=== PATIENT | female | born 1950 | race Hispanic/Latino ===

== ENCOUNTER 2016-08-07 10:10 | Inpatient (IN) | payer OTHER, MEDICARE ==
--- NOTE | 2016-08-07 10:24 | ED PDOC ---
Arrival/HPI - General Time Seen by Provider: 08/07/16 10:11 Historian: Patient - History of Present Illness Narrative History of Present Illness (Text): 08/07/16 10:29 66 year old female with a past medical history that includes IN, hernia and abdominal surgery presents to the emergency department complaining of shortness of breath and chest pain since last night. EMS reports Duoneb was given in the field. Patient reports she took Prednisone 5mg prior to arrival. No fever or urinary symptoms. PMD: Dr. Aguila Surgeon: Dr. Reeder 08/07/16 15:36 Time/Duration: 24 hours Symptom Onset: Sudden Past Medical History - Provider Review Nursing Documentation Reviewed: Yes - Infectious Disease Hx of Infectious Diseases: None - Tetanus Immunization Tetanus Immunization: Unknown - Cardiac Hx Cardiac Disorders: (IN 06/09/13, DVT s/p filter) Hx Hypertension: Yes - Pulmonary Hx Chronic Obstructive Pulmonary Disease (COPD): Yes (O2 @ Home) - Neurological HX Cerebrovascular Accident: Yes - HEENT Hx HEENT Disorder: No Hx Cataracts: (Unknown) Hx Deafness: Yes ([place]) Hx Difficulty Chewing: No Hx Glaucoma: Yes - Renal Hx Renal Disorder: No Hx Dialysis: No - Endocrine/Metabolic Hx Diabetes Mellitus Type 2: Yes Hx Hypothyroidism: Yes - Hematological/Oncological Hx Blood Transfusions: Yes Hx Blood Transfusion Reaction: No - Integumentary Hx Dermatological Disorder: No Other/Comment: bilateral arms eccymotic areas - Musculoskeletal/Rheumatological Hx Falls: Yes - Gastrointestinal Hx Gastrointestinal Disorders: Yes (hiatal hernia, umbilical hernia) Hx Diverticulitis: Yes (and diverticulosis) Hx Gastroesophageal Reflux: Yes Hx Liver Failure: No Hx Pancreatitis: Yes HX Swallowing Problems: No - Genitourinary/Gynecological Hx Genitourinary Disorders: Yes Hx Incontinence: Yes - Psychiatric Hx Substance Use: No - Surgical History Hx Cholecystectomy: Yes Hx Coronary Stent: Yes (06/09/13) Other/Comment: Hernia Surgery-15 June 2016 - Anesthesia Hx Anesthesia Reactions: No Hx Malignant Hyperthermia: No - Suicidal Assessment Feels Threatened In Home Enviroment: No Family/Social History - Physician Review Nursing Documentation Reviewed: Yes Family/Social History: Unknown Family HX Smoking Status: Former Smoker Hx Alcohol Use: No Hx Substance Use: No Hx Substance Use Treatment: No Allergies/Home Meds Allergies/Adverse Reactions: Allergies ciprofloxacin [From Cipro] Allergy (Verified 06/16/16 08:21) RASH ciprofloxacin HCl [From Cipro] Allergy (Verified 06/16/16 08:21) RASH iodine Allergy (Verified 06/16/16 08:21) RASH linezolid [From Zyvox] Allergy (Verified 06/23/16 00:33) REDNESS Sulfa (Sulfonamide Antibiotics) Allergy (Verified 06/16/16 08:21) RASH tiotropium bromide [From Spiriva with HandiHaler] Allergy (Verified 06/16/16 08: 21) RASH seafood Allergy (Uncoded 05/18/16 15:10) RASH Home Medications: Home Meds Medication Instructions Recorded Confirmed Albuterol/Ipratropium [Duoneb 3 3 ml IH BID 06/16/16 08/07/16 MG/3 Ml-0.5 MG/3 Ml 3 Ml] Alprazolam [Alprazolam Xr] 0.5 mg PO BID 06/16/16 08/07/16 Aspirin [Adult Low Dose Aspirin EC] 81 mg PO DAILY 06/16/16 08/07/16 Budesonide/Formoterol Fumarate 1 aer IH BID 06/16/16 08/07/16 [Symbicort] Cetirizine HCl [Zyrtec Allergy] 10 mg PO DAILY 06/16/16 08/07/16 Cholecalciferol [Vitamin D] 50,000 unit PO QWK 06/16/16 08/07/16 Clopidogrel [Plavix] 75 mg PO DAILY 06/16/16 08/07/16 Diclofenac Sodium [Voltaren] 0 gm TP TID 06/16/16 08/07/16 Furosemide [Lasix] 40 mg PO DAILY 06/16/16 08/07/16 Levothyroxine [Synthroid] 137 mcg PO DAILY 06/16/16 08/07/16 Lisinopril [Zestril] 5 mg PO DAILY 06/16/16 08/07/16 Metoprolol Succinate [Toprol XL] 25 mg PO DAILY 06/16/16 08/07/16 Omeprazole 40 mg PO DAILY 06/16/16 08/07/16 Polyethylene Glycol 3350 [Miralax] 17 gm PO HS 06/16/16 08/07/16 Potassium Chloride [K-Dur 20] 20 meq PO DAILY 06/16/16 08/07/16 Prednisone [Skip] 5 mg PO BID 06/16/16 08/07/16 Simvastatin 20 mg PO DAILY 06/16/16 08/07/16 Review of Systems - Physician Review All systems were reviewed & negative as marked: Yes - Review of Systems Constitutional: absent: Fevers Respiratory: SOB Cardiovascular: Chest Pain Genitourinary Female: absent: Dysuria, Frequency, Hematuria Physical Exam Vital Signs Reviewed: Yes Vital Signs Temp Pulse Pulse Resp BP Pulse Ox 08/07/16 20:49 98.1 F 83 83 21 146/78 08/07/16 20:36 90 19 113/62 95 08/07/16 20:27 87 113/62 08/07/16 20:26 87 113/62 08/07/16 16:44 100 H 18 123/64 92 L 08/07/16 13:17 110 H 20 126/57 L 96 08/07/16 10:43 19 98 08/07/16 10:19 98.1 F 104 H 19 119/52 L 98 Temperature: Afebrile Blood Pressure: Normal Pulse: Tachycardic Respiratory Rate: Normal Appearance: Positive for: Well-Appearing, Non-Toxic, Uncomfortable Pain Distress: None Mental Status: Positive for: Alert and Oriented X 3 - Systems Exam Head: Present: Atraumatic, Normocephalic Pupils: Present: PERRL Extroacular Muscles: Present: EOMI Conjunctiva: Present: Normal Mouth: Present: Moist Mucous Membranes Neck: Present: Normal Range of Motion Respiratory/Chest: Present: Good Air Exchange, Wheezes (Diffuse). No: Respiratory Distress, Accessory Muscle Use Cardiovascular: Present: Regular Rate and Rhythm, Normal S1, S2. No: Murmurs Abdomen: Present: Tenderness (Mild nonfocal tendreness), Normal Bowel Sounds, Scars (Abdominal surgical scar clean, intact, healing ). No: Distention, Peritoneal Signs Back: Present: Normal Inspection Upper Extremity: Present: Normal Inspection. No: Cyanosis, Edema Lower Extremity: Present: Normal Inspection. No: Edema Neurological: Present: GCS=15, CN II-XII Intact, Speech Normal Skin: Present: Warm, Dry, Normal Color. No: Rashes Psychiatric: Present: Alert, Oriented x 3, Normal Insight, Normal Concentration Medical Decision Making ED Course and Treatment: Impression: 66 year old female with a past medical history that includes IN, hernia and abdominal surgery presents to the emergency department complaining of shortness of breath and chest pain since last night. Differential Diagnosis include but are not limited to: Plan: -- EKG -- Aspirin, Duoneb, Solumdrol -- Labs -- Reassess and disposition Prior Visits: Notes and results from previous visits were reviewed. Patient last seen in ED on 06/16/16 for MICHA drain infection s/p surgery and admitted for intraabdominal infection. Progress Notes: EKG shows sinus tachycardia at 104 BPM with old RBBB. Interpreted by me. Patient refuses CT scan, reports allergy. Dr. Aguila is bedside, accepts patient, requesting VQ scan. - Lab Interpretations Lab Results: 08/07/16 10:40 08/07/16 10:40 Lab Results 08/07/16 13:07: POC Glucose (mg/dL) 169 H 08/07/16 10:40: WBC 7.1 D, RBC 3.93, Hgb 11.8 L, Hct 37.4, MCV 95.2, MCH 30.0, MCHC 31.6, RDW 16.6 H, Plt Count 263, MPV 11.1 H, Gran % 79.6 H, Lymph % (Auto) 8.4 L, [place] % (Auto) 11.8 H, Eos % (Auto) 0.1 L, Baso % (Auto) 0.1, Gran # 5.68 , Lymph # 0.6 L, [place] # 0.8 H, Eos # 0.0, Baso # 0.01, PT 10.7, INR 0.99, APTT 25.7, Sodium 139, Potassium 3.4 L, Chloride 96 L, Carbon Dioxide 33, Anion Gap 13, BUN 10, Creatinine 0.5, Est GFR ( Amer) > 60, Est GFR (Non-Af Amer) > 60, Random Glucose 127 H, Calcium 9.0, Magnesium 1.8, Total Bilirubin 0.5, AST 37, ALT 19, Alkaline Phosphatase 47, Lactate Dehydrogenase 549, Total Creatine Kinase 32 L, Troponin I < 0.01 D, NT-Pro-B Natriuret Pep 944 H, Total Protein 7.4, Albumin 4.0, Globulin 3.4, Albumin/Globulin Ratio 1.2, Lipase 60 - RAD Interpretation Radiology Orders: 08/07/16 11:22 CXR [CHEST PORTABLE] [RAD] Stat 08/07/16 13:49 LUNG PERF & VENT SCAN [NM] Stat - EKG Interpretation Interpreted by ED Physician: Yes Type: 12 lead EKG - Medication Orders Current Medication Orders: Alprazolam (Xanax) 0.5 mg PO BID [facility] PRN Reason: Protocol Last Admin: 08/09/16 17:36 Dose: 0.5 MG Behavioural Document 08/09/16 17:36 [facility] (Rec: 08/09/16 17:36 [id number] Maintenance Maintenance Dose Yes Nonmedicinal Nonmedicinal Interventions Therapeutic Communication Activity Behavior Behavior for Medication: Anxiety Re-Assess: Reassess Psych Meds Document 08/09/16 18:36 [facility] (Rec: 08/09/16 19:39 [id number] Reassess Psych Med Effective Aspirin (Ecotrin) 81 mg PO DAILY [facility] Last Admin: 08/10/16 09:03 Dose: 81 MG Atorvastatin Calcium (Lipitor) 10 mg PO DIN [facility] Last Admin: 08/09/16 16:47 Dose: 10 MG Clopidogrel Bisulfate (Plavix) 75 mg PO DAILY [facility] Last Admin: 08/10/16 09:03 Dose: 75 MG Furosemide (Lasix) 40 mg PO DAILY [facility] Last Admin: 08/09/16 09:14 Dose: 40 MG MAR Blood Pressure Document 08/09/16 09:14 [facility] (Rec: 08/09/16 09:14 [id number] Blood Pressure Blood Pressure (100/60-150/90) 153/66 Levalbuterol HCl (Xopenex) 0.63 mg IH Q2 PRN PRN Reason: Shortness of Breath Levalbuterol HCl (Xopenex) 0.63 mg IH [id number] [facility] Levothyroxine Sodium (Synthroid) 112 mcg PO ACB [facility] Last Admin: 08/09/16 07:58 Dose: 112 MCG Lisinopril (Zestril) 5 mg PO DAILY [facility] Last Admin: 08/10/16 09:04 Dose: 5 MG MAR Pulse and Blood Pressure Document 08/10/16 09:04 JUR (Rec: 08/10/16 09:04 JUR [id number]) Pulse Pulse Rate (60-90) 92 Blood Pressure Blood Pressure (100/60-150/90) 146/74 Methylprednisolone (Solu-Medrol) 30 mg IVP Q12 [facility] Last Admin: 08/10/16 09:04 Dose: 30 MG IVP Administration Document 08/10/16 09:04 JUR (Rec: 08/10/16 09:05 JUR [id number]) Charges for Administration # of IVP Administrations 1 Metoprolol Succinate (Toprol Xl) 25 mg PO DAILY [facility] Last Admin: 08/10/16 09:03 Dose: 25 MG MAR Pulse and Blood Pressure Document 08/10/16 09:03 JUR (Rec: 08/10/16 09:03 JUR [id number]) Pulse Pulse Rate (60-90) 92 Blood Pressure Blood Pressure (100/60-150/90) 146/74 Non-Formulary Medication (Alprazolam [Alprazolam Xr]) 0.5 mg PO BID [facility] Last Admin: 08/07/16 21:37 Dose: Ondansetron HCl (Zofran Inj) 4 mg IVP Q6H PRN PRN Reason: Nausea/Vomiting Last Admin: 08/09/16 05:40 Dose: 4 MG IVP Administration Document 08/09/16 05:40 RAYMUNDO (Rec: 08/09/16 05:40 RAYMUNDO [id number]) Charges for Administration # of IVP Administrations 1 Pantoprazole Sodium (Protonix Ec Tab) 40 mg PO 0630 [facility] Last Admin: 08/10/16 05:47 Dose: Not Given Non-Admin Reason: NPO Polyethylene Glycol (Miralax) 17 gm PO HS [facility] Last Admin: 08/09/16 21:15 Dose: 17 GM Potassium Chloride (K-Dur 20 Meq Er Tab) 20 meq PO DAILY [facility] Last Admin: 08/09/16 09:05 Dose: 20 MEQ Promethazine HCl/Codeine (Phenergan/Codeine Oral Syrup) 5 ml PO Q4H PRN PRN Reason: Cough and congestion Last Admin: 08/09/16 21:17 Dose: 5 ML Tramadol HCl (Ultram) 25 mg PO Q6H PRN PRN Reason: Pain, moderate (4-7) Last Admin: 08/09/16 16:47 Dose: 25 MG MAR Pain Assessment Document 08/09/16 16:47 JFG (Rec: 08/09/16 16:48 JFG [id number]) Pain Reassessment Is this a pain reassessment? Yes Sleep Is patient sleeping during reassessment? No Presence of Pain Presence of Pain Yes Location Pain Location Body Site Abdomen Back Description Description Intermittent Intensity of Pain at present 7 Pain Behavior Guarding Irritability Restlessness Facial Grimacing Aggravating Factors ADL's Changing Position Exercise/Activity Sitting Alleviating Factors/Management Heat Techniques Alleviating Factors Medication Re-Assess: MAR Pain Assessment Document 08/09/16 17:47 JF (Rec: 08/09/16 18:13 [id number]) Pain Reassessment Is this a pain reassessment? Yes Sleep Is patient sleeping during reassessment? No Presence of Pain Presence of Pain No Discontinued Medications Albuterol/Ipratropium (Duoneb 3 Mg/0.5 Mg (3 Ml) Ud) 3 ml IH Q15M SALLY Stop: 08/07/16 11:01 Last Admin: 08/07/16 11:22 Dose: 3 ML Aspirin (Aspirin) 325 mg PO STAT STA Stop: 08/07/16 10:30 Last Admin: 08/07/16 10:50 Dose: 325 MG Diphenhydramine HCl (Benadryl) 25 mg PO STAT STA Stop: 08/08/16 21:16 Last Admin: 08/08/16 21:32 Dose: 25 MG Diphenhydramine HCl (Benadryl) Confirm Administered Dose 50 mg .ROUTE .STK-MED ONE Stop: 08/10/16 10:41 Last Admin: 08/10/16 11:15 Dose: 50 MG Enoxaparin Sodium (Lovenox) 70 mg SC STAT STA PRN Reason: Protocol Stop: 08/07/16 19:30 Last Admin: 08/07/16 22:25 Dose: 70 MG Subcutaneous Administrations Document 08/07/16 22:25 [id number] (Rec: 08/07/16 22:26 [id number]) Injection Site MAR Injection Site Right Abdomen Charges for Administration # of Subcutaneous Administrations 1 Enoxaparin Sodium (Lovenox) 30 mg SC DAILY SALLY PRN Reason: Protocol Stop: 08/09/16 23:59 Last Admin: 08/09/16 09:07 Dose: 30 MG Subcutaneous Administrations Document 08/09/16 09:07 JFG (Rec: 08/09/16 09:07 CALLI [id number]) Injection Site MAR Injection Site Left Abdomen Charges for Administration # of Subcutaneous Administrations 1 Fentanyl (Fentanyl) Confirm Administered Dose 100 mcg .ROUTE .STK-MED ONE Stop: 08/10/16 11:24 Hydrocortisone Sodium Succinate (Solu-Cortef) Confirm Administered Dose 100 mg .ROUTE .STK-MED ONE Stop: 08/10/16 10:41 Last Admin: 08/10/16 11:00 Dose: 100 MG Famotidine (Pepcid 20mg/50ml Premix) Confirm Administered Dose 50 mls @ ud IVPB .STK-MED ONE Stop: 08/10/16 10:42 Last Admin: 08/10/16 11:00 Dose: 20 MG eMAR Start Stop Document 08/10/16 11:00 HOLLIS (Rec: 08/10/16 11:16 OHLLIS [facility]) Intravenous Solution Start Date 08/10/16 Start Time 11:00 End Date 08/10/16 End time 11:05 Total Infusion Time 5 Heparin Sodium (Porcine) (Heparin 1000 Units/500 Ml Ns) Confirm Administered Dose 1,500 mls @ ud IV .STK-MED ONE Stop: 08/10/16 11:25 Iodixanol (Visipaque 320 Mg/Ml 100 Ml) Confirm Administered Dose 100 ml IV .STK- MED ONE Stop: 08/07/16 13:26 Iodixanol (Visipaque 320 Mg/Ml 200 Ml) Confirm Administered Dose 200 ml IV .STK- MED ONE Stop: 08/10/16 11:24 Ketorolac Tromethamine (Toradol) 30 mg IVP STAT STA Stop: 08/07/16 15:13 Last Admin: 08/07/16 15:23 Dose: 30 MG IVP Administration Document 08/07/16 15:23 MR (Rec: 08/07/16 15:24 [id number]) Charges for Administration # of IVP Administrations 1 Levalbuterol HCl (Xopenex) 1.25 mg IH [id number] PRN PRN Reason: Shortness of Breath Last Admin: 08/10/16 06:12 Dose: 1.25 MG Levothyroxine Sodium (Synthroid) 25 mcg PO ACB SALLY Lidocaine HCl (Lidocaine 2% 20ml Vial) Confirm Administered Dose 20 ml .ROUTE .STK-MED ONE Stop: 08/10/16 11:24 Lorazepam (Ativan) 0.5 mg IVP ONCE ONE PRN Reason: Protocol Stop: 08/07/16 11:39 Last Admin: 08/07/16 11:51 Dose: 0.5 MG Behavioural Document 08/07/16 11:51 MR (Rec: 08/07/16 11:51 MR [facility] [id number]) Maintenance Maintenance Dose No Nonmedicinal Nonmedicinal Interventions Give food/fluids Behavior Behavior for Medication: Anxiety IVP Administration Document 08/07/16 11:51 MR (Rec: 08/07/16 11:51 MR [facility] [id number]) Charges for Administration # of IVP Administrations 1 Methylprednisolone (Solu-Medrol) 125 mg IVP STAT STA Stop: 08/07/16 10:31 Last Admin: 08/07/16 10:50 Dose: 125 MG IVP Administration Document 08/07/16 10:50 MR (Rec: 08/07/16 10:50 MR [id number] Charges for Administration # of IVP Administrations 1 Methylprednisolone (Solu-Medrol) 40 mg IV Q12 SALLY Last Admin: 08/09/16 21:17 Dose: 40 MG eMAR Start Stop Document 08/09/16 21:17 AP (Rec: 08/09/16 21:17 AP [id number]) Intravenous Solution Start Date 08/09/16 Start Time 21:17 Midazolam HCl (Versed Inj) Confirm Administered Dose 2 mg .ROUTE .STK-MED ONE Stop: 08/10/16 11:24 Oxycodone/Acetaminophen (Percocet 5/325 Mg Tab) 1 tab PO Q4H PRN PRN Reason: Pain, moderate (4-7) Stop: 08/10/16 21:33 Last Admin: 08/08/16 06:28 Dose: 1 TAB [facility] Pain Assessment Document 08/08/16 06:28 [id number] (Rec: 08/08/16 06:28 [id number]) Pain Reassessment Is this a pain reassessment? Yes Sleep Is patient sleeping during reassessment? No Re-Assess: [facility] Pain Assessment Document 08/08/16 07:28 JF (Rec: 08/08/16 08:04 [facility] Pain Reassessment Is this a pain reassessment? Yes Sleep Is patient sleeping during reassessment? No Presence of Pain Presence of Pain No Potassium Chloride (K-Dur 20 Meq Er Tab) 20 meq PO STAT STA Stop: 08/07/16 19:33 Last Admin: 08/07/16 20:27 Dose: 20 MEQ Prednisone (Prednisone Tab) 5 mg PO BID SALLY Last Admin: 08/08/16 09:17 Dose: 5 MG - Scribe Statement The provider has reviewed the documentation as recorded by the Danny Neely Provider Scribe Attestation: All medical record entries made by the Danny were at my direction and personally dictated by me. I have reviewed the chart and agree that the record accurately reflects my personal performance of the history, physical exam, medical decision making, and the department course for this patient. I have also personally directed, reviewed, and agree with the discharge instructions and disposition. Disposition/Present on Arrival - Present on Arrival Any Indicators Present on Arrival: No History of DVT/PE: Yes History of Uncontrolled Diabetes: No Urinary Catheter: No History Surgical Site Infection Followin - Disposition Have Diagnosis and Disposition been Completed?: Yes Diagnosis: Chronic obstructive pulmonary disease Disposition: HOSPITALIZED Disposition Time: 02:00 Condition: FAIR
[2016-08-07] MEDS: Albuterol-Ipratrop 3 mg / 0.5 (3 ml) UD IH SCH ×3 (10:50→11:22)
[2016-08-07 10:57] LABS: ADD MANUAL DIFF? NO
[2016-08-07 11:00] LABS: BASO # 0.01 K/mm3 (0.0-2.0); BASO % 0.1 % (0.0-3.0); EOS % 0.1 % (1.5-5.0); GRAN # 5.68 (1.4-6.5); GRAN % 79.6 % (50.0-68.0); HEMATOCRIT 37.4 % (36.0-48.0); LYMPH # 0.6 (1.2-3.4); LYMPH % 8.4 % (22.0-35.0); MEAN CELL VOLUME 95.2 fL (80.0-105.0); MEAN CORPUSCULAR HGB CONC 31.6 g/dl (31.0-37.0); MEAN PLATELET VOLUME 11.1 fl (7.0-11.0); MONO # 0.8 (0.1-0.6); MONO % 11.8 % (1.0-6.0); PLATELET COUNT 263 10^3/uL (120.0-450.0); RED CELL DISTRIBUTION WIDTH 16.6 % (11.5-14.5); WHITE BLOOD COUNT 7.1 10^3/ul (4.5-11.0)
[2016-08-07 11:06] LABS: ALB/GLOB RATIO 1.2 (1.1-1.8); ALKALINE PHOSPHATASE 47 U/L (38-133); ALT/SGPT 19 U/L (7-56); AST/SGOT 37 U/L (15-39); BILIRUBIN,TOTAL 0.5 mg/dL (0.2-1.3); BLOOD UREA NITROGEN 10 mg/dL (7-21); CARBON DIOXIDE 33 mmol/L (21-33); CHLORIDE 96 mmol/L (98-107); GFR AFRICAN-AMERICAN > 60; GLUCOSE,RANDOM 127 mg/dL (70-110); LIPASE 60 U/L (23-300); MAGNESIUM 1.8 mg/dL (1.7-2.2); POTASSIUM 3.4 mmol/L (3.6-5.0); SODIUM 139 mmol/L (132-148); TOTAL PROTEIN 7.4 g/dL (5.8-8.3)
[2016-08-07 11:10] LABS: INR 0.99 (0.93-1.08); PARTIAL THROMBOPLASTIN TIME 25.7 Seconds (23.7-30.8)
[2016-08-07 11:18] LABS: TROPONIN I < 0.01 ng/mL
[2016-08-07] MEDS ORDERED: Iodixanol 320 MG/ML 100 ML BOTTLE IV ONE (13:25)
--- NOTE | 2016-08-07 14:29 | RAD ---
HISTORY: sob COMPARISON: 07/04/2016 FINDINGS: LUNGS: Lung markings are accentuated. There is no focal consolidation. PLEURA: No significant pleural effusion identified, no pneumothorax apparent. CARDIOVASCULAR: There is mild cardiomegaly. Atherosclerotic aortic arch calcifications are present. OSSEOUS STRUCTURES: No significant abnormalities. VISUALIZED UPPER ABDOMEN: Normal. OTHER FINDINGS: None. IMPRESSION: Mild cardiomegaly and pulmonary venous congestion. No lobar pneumonia.
[2016-08-07 14:39] LABS: PH,URINE 5.5 (4.7-8.0); URINE BILIRUBIN SMALL (NEGATIVE); URINE BLOOD NEGATIVE (NEGATIVE); URINE GLUCOSE (UA) NEGATIVE (NEGATIVE); URINE KETONE 15 mg/dL (NEGATIVE); URINE LEUKOCYTE ESTERASE NEGATIVE Leu/uL (NEGATIVE); URINE PROTEIN TRACE mg/dL (<30 mg/dL)
[2016-08-07 14:40] LABS: URINE APPEARANCE SL CLOUDY (CLEAR); URINE COLOR YELLOW (YELLOW)
[2016-08-07 14:42] LABS: URINE RBC NEGATIVE /hpf (0-2); URINE WBC 0 - 2 /hpf (0-6)
--- NOTE | 2016-08-07 17:01 | NM ---
COMPARISON: Comparison is made to the previous same-day chest x-ray TECHNIQUE: 30 mCi technetium 99-m technetium DTPA 3 mCI technetium 99-m MAA administered intravenously. FINDINGS: VENTILATION COMPONENT: Limited and demonstrates a heterogeneous distribution of the radiotracer. Foci of accumulation of the tracer seen in the central portion of the lungs. PERFUSION COMPONENT: There are nonsegmental matching perfusion defect seen in the right upper lobe and left lung. IMPRESSION: Suboptimal it study. The ventilation study is somewhat limited. Lowprobability ventilation perfusion scan for pulmonary embolism.
[2016-08-07] MEDS ORDERED: Non Formulary Medication (Alprazolam [Alprazolam Xr] 0.5 MG) PO SCH (18:00)
[2016-08-07] MEDS ORDERED: Enoxaparin 60 mg Syringe SC STA (19:29)
[2016-08-07] MEDS ORDERED: Potassium Chloride 20 mEq ER Tab PO STA (19:32)
[2016-08-07] MEDS: Metoprolol Succinate 25 mg XL Tab PO SCH (20:26)
[2016-08-07] MEDS: Potassium Chloride 20 mEq ER Tab PO SCH (20:27)
[2016-08-07] MEDS: Levalbuterol 1.25 MG/3 ML Inhal Soln UD IH PRN (20:51)
[2016-08-07] MEDS: Oxycodone/Acetaminophen 5/325 mg Tab PO PRN (21:42)
[2016-08-07] MEDS: MethylPREDNISolone 40 mg Vial IV SCH (21:42)
[2016-08-07] MEDS: POLYETHYLENE GLYCOL 3350 17 GM/Dose PACKET PO SCH (21:43)
[2016-08-08] MEDS: Oxycodone/Acetaminophen 5/325 mg Tab PO PRN ×2 (00:45→06:28)
[2016-08-08 02:34] VITALS: BMI 26.2
--- NOTE | 2016-08-08 04:14 | CON ---
DATE: 08/07/2016 SERVICE: Cardiology CONSULTING PHYSICIAN: Dr. Princess Mariano. REASON FOR CONSULTATION: Followup, history of coronary artery disease, history of non-ST segment mainor vation myocardial infarction, admitted with chest pain, shortness of breath, possible acute exacerbat ion of COPD, rule out [id number] elevation myocardial infarction. 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 Since patient is asymptomatic and lost a lot of blood, patient was treated medically and planned to do the cardiac catheterization on 07/29/2016 at 7:30. Later on, was postponed and was scheduled for 017 by the patient, but this was canceled because came from the [facility] recently. He came into the hospital with complaint of shortness of breath, 1 episode of chest pain and wheezing. PAST MEDICAL HISTORY: Significant for coronary artery disease, status post PTCA on 05/30/2013 of the distal circumflex. Recently patient had hernia and then hernia got infection and then hernia repair , postop complicated with [id number]-[id number] elevation myocardial infarction, dropped 4 units of blood an d he required 4 units of blood and is scheduled for stress as a cardiac catheterization in outpatient on 07/29/2016 at 7:30 and was later on the patient postponed and deferred to 08/10/2016 who later on called today to further postpone for 4 weeks, but came into the ER. Previous cardiac workup as follows: The patient had a stress test on 10/24/2015 with normal ejection fraction. The patient's last echocardiography on 05/31/2013 showed ejection fraction of 45% to 50%, mild hypokinesis. Recently, the patient had non-STEMI on 06/16/2016. Repeat echocardiography done on 07/01/2016 shows ejection fraction of 50% to 55%, trace aortic regurgitation, mild to moderate bren vular aortic stenosis, trace to mild mitral regurgitation, trace tricuspid regurg, RV systolic pressu re 22. REVIEW OF SYSTEMS: As per HPI. CURRENT MEDICATIONS: The patient is taking at home simvastatin, prednisone, potassium chloride, poly ethylene glycol, omeprazole, metoprolol, lisinopril, levothyroxine, Lasix, diclofenac, clopidogrel, a spirin, alprazolam and albuterol. SOCIAL HISTORY: Ex-smoker, quit many years ago. REVIEW OF SYSTEMS: As per HPI. ALLERGIES: CIPROFLOXACIN, IODINE , SULFAMETHOXAZOLE. PHYSICAL EXAMINATION: VITAL SIGNS: Temperature afebrile, heart rate 104, blood pressure 119/52. HEENT: PERRLA. Extraocular muscles intact. NECK: Supple. No carotid bruits. No thyromegaly. CHEST: Scattered rhonchi noted. HEART: S1, S2 regular. ABDOMEN: Healed scar noted of abdominal surgery, midline incision. EXTREMITIES: Clubbing, cyanosis negative. EKG shows normal sinus, right bundle branch block, left anterior hemiblock, T-wave inversion, conside r lateral ischemia. EKG compared to the previous EKG, no significant change noted. LABORATORY DATA: Blood workup as follows: WBC 7.9, hemoglobin 11.8, hematocrit 37.4, platelet count 263. Chemistry shows sodium 139, potassium 3.4, chloride 96, carbon dioxide 30, anion gap of 13, BU N 10, creatinine 0.5. Troponin 0.01. IMPRESSION: Possible acute exacerbation of chronic obstructive pulmonary disease, hypertension, diab etes, coronary artery disease, status post percutaneous transluminal coronary angioplasty of circumfl ex, distal and [id number] elevation myocardial infarction, recent echo shows preserved left ventr icular function, trace mitral regurgitation, trace tricuspid regurgitation. RECOMMENDATION: Start aspirin, Plavix, treat aggressively for COPD. The patient is going for VQ sca n to rule out PE. We will start Lovenox 1 mg/kg q. 12 and prepare for cardiac catheterization on Wed. We will follow with you. Thank you, Dr. Aguila for providing the opportunity in taking care of the patient. Princess Mariano MD cc: [id number] TT: 08/08/2016 04:13:45 Confirmation # [id number] Dictation # [id number]
[2016-08-08 06:57] LABS: ADD MANUAL DIFF? NO
[2016-08-08 07:04] LABS: BASO # 0.01 K/mm3 (0.0-2.0); BASO % 0.2 % (0.0-3.0); GRAN # 4.24 (1.4-6.5); HEMATOCRIT 35.7 % (36.0-48.0); LYMPH # 1.2 (1.2-3.4); LYMPH % 19.4 % (22.0-35.0); MEAN CELL VOLUME 94.4 fL (80.0-105.0); MEAN CORPUSCULAR HEMOGLOBIN 30.4 pg (25.0-35.0); MEAN CORPUSCULAR HGB CONC 32.2 g/dl (31.0-37.0); MEAN PLATELET VOLUME 10.8 fl (7.0-11.0); MONO # 0.8 (0.1-0.6); MONO % 12.4 % (1.0-6.0); PLATELET COUNT 253 10^3/uL (120.0-450.0); RED CELL DISTRIBUTION WIDTH 16.7 % (11.5-14.5); WHITE BLOOD COUNT 6.2 10^3/ul (4.5-11.0)
[2016-08-08 07:12] LABS: ALB/GLOB RATIO 1.2 (1.1-1.8); ALKALINE PHOSPHATASE 45 U/L (38-133); ALT/SGPT 20 U/L (7-56); AST/SGOT 23 U/L (15-39); BILIRUBIN,TOTAL 0.4 mg/dL (0.2-1.3); BLOOD UREA NITROGEN 14 mg/dL (7-21); CALCIUM 8.9 mg/dL (8.4-10.5); CARBON DIOXIDE 34 mmol/L (21-33); CHLORIDE 98 mmol/L (98-107); CHOLESTEROL 176 mg/dL (130-200); GFR AFRICAN-AMERICAN > 60; GLUCOSE,RANDOM 138 mg/dL (70-110); MAGNESIUM 2.1 mg/dL (1.7-2.2); PHOSPHOROUS 4.4 mg/dL (2.5-4.5); POTASSIUM 4.3 mmol/L (3.6-5.0); SODIUM 140 mmol/L (132-148); TOTAL PROTEIN 6.8 g/dL (5.8-8.3)
[2016-08-08 07:23] LABS: TROPONIN I 0.02 ng/mL
[2016-08-08] MEDS ORDERED: Levothyroxine 25 MCG TAB PO SCH (07:30)
[2016-08-08] MEDS: Levothyroxine 112 MCG TAB PO SCH (08:13)
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
[2016-08-08] MEDS: Potassium Chloride 20 mEq ER Tab PO SCH (09:14)
[2016-08-08] MEDS: Enoxaparin 30 mg Syringe SC SCH (09:17)
[2016-08-08] MEDS: MethylPREDNISolone 40 mg Vial IV SCH ×2 (09:17→21:26)
[2016-08-08] MEDS: Metoprolol Succinate 25 mg XL Tab PO SCH (09:19)
--- NOTE | 2016-08-08 09:31 | CARD ---
APPROVED REPORT EKG Measurement Heart [id number] <Conclusion> Sinus tachycardia with premature atrial complexes Right bundle branch block Left anterior fascicular block Bifascicular block STTW changes The T wave inversions V 2 -5 are shallower c/w ECG 06/30/16
[2016-08-08] MEDS: Levalbuterol 1.25 MG/3 ML Inhal Soln UD IH PRN (11:33)
--- NOTE | 2016-08-08 11:38 | CP.PCM.PCO ---
Physician Communication Note - Physician Communication Note Physician Communication Note: No wound infection/+ Loose BM: Stool c/s-cdif
--- NOTE | 2016-08-08 14:00 | CON ---
DATE: 08/08/2016 LOCATION: CCU, bed 1. HISTORY OF PRESENT ILLNESS: The patient is a 66-year-old woman who has had a very long cardiopulmonary surgical history. She has been very compliant with her outpatient medications, but was tremendously overweight. I believe that she was diagnosed as having obstructive sleep apnea for which she never wanted to use her CPAP. She also has a history of pulmonary hypertension. The patient was admitted to the past for evaluation of abdominal hernia repair which took place with several postoperative complications and she has been in and out of rehab for quite some time. The patient has been a long-term patient of [facility], but has not been in the office in over 2 years. This makes it difficult for me to remember all of the diagnoses and medications that she took. My office records are not available to me on the weekend and I will have to review these Wednesday and discuss with Dr. Goode who will be following the patient starting Wednesday. The patient was admitted with severe shortness of breath and possible sepsis. She is markedly better now, having been given vigorous inhaled and intravenous bronchodilators and corticosteroids. Of late, she has lost a tremendous amount of weight and she states that this has helped all of her symptoms dramatically. All her abnormalities must be reevaluated in view of this tremendous weight loss. She looks very well compared to the past. This is in spite of the fact that she was admitted to the hospital with exacerbation of COPD. In of itself, she looks markedly better than she had looked on a daily basis for many years due to her significant morbid obesity. PAST MEDICAL HISTORY: As described above. She has had cardiac catheterizations , hypertension, pulmonary hypertension, myocardial infarction in the past with history of DVT with filter placement. She has had severe COPD for years, on home oxygen. She has had a CVA in the past as well which had resolved dramatically, leaving her with very minimal residual. The patient also has diabetes mellitus, mild anemia and multiple falls. She has had GERD, diverticular disease and pancreatitis, multiple urinary tract infections and severe anxiety, although she was never hospitalized for this. PAST SURGICAL HISTORY: Cardiac stents multiple occasions, hernia repairs over a long period of time with redo's, status post cholecystectomy, polysomnography. FAMILY HISTORY: There is strong family history of COPD. SOCIAL HISTORY: The patient was a smoker. No occupational or travel history. No additional problems of note. She had been a DNR, but has rescinded this order in the past,. ALLERGIES: FLOXIN ANTIBIOTICS, IODINE, SULFA AND TIOTROPIUM. SHE ALSO HAS SEAFOOD ALLERGY. REVIEW OF SYSTEMS: Has been discussed with the patient at length. There is nothing new than what we have discussed above. She continues to have respiratory problems, but as I stated above, she has not been seen for over 2 years. Dyspnea on exertion, no chest pains, hemoptysis or pleurisy. No abdominal pain, vomiting, memory loss. No skin rashes. All other systems negative. HOME MEDICATIONS: Include: 1. Albuterol: 2. Ipratropium. 3. Alprazolam. 4. Budesonide. 5. Lasix. 6. Prednisone. 7. Simvastatin. I am of the belief that the patient had a pulmonary hypertension medication which has dropped out of the system. As stated above, I cannot check my office notes until Wednesday morning. PHYSICAL EXAMINATION: GENERAL: The patient is comfortable, in no acute respiratory distress. She is happy to see me and it has been a remarkable reunion of sorts. VITAL SIGNS: She is afebrile with a rapid heart rate 90 and a respiratory rate of 18, her blood pressure is 128/70. Pulse ox 98% at this time HEAD: Normocephalic, atraumatic. EYES: Pupils PERRLA. EOMs full. Conjunctivae reactive. Mouth: Moist mucous membranes. NECK: Supple, no JVD, no lymphadenopathy, no bruit, no mass or thyromegaly. CARDIOVASCULAR: Regular rhythm, S1, S2 without murmur, gallop or rub. PULMONARY: Good air movement. Scattered wheezes throughout both lung sosa, but better than previously seen. No respiratory distress. No additional abnormalities noted. GASTROINTESTINAL: Abdomen tender. Bowel sounds active. Multiple scars. Markedly decreased flesh. No distension. EXTREMITIES: Reveal no clubbing, cyanosis or edema. NEUROLOGIC: Awake, alert. Motor, sensory and coordination normal. Deep tendon reflexes normal. Babinski downgoing. SKIN: Warm and dry, no rashes or excoriations. New scars are noted. PSYCHIATRIC: She is still nervous, but is able to carry out a better to normal discussion about her pulmonary status and general medical status. LYMPHATICS: Lymphadenopathy is not present in the supraclavicular notch nor in the cervical, inguinal or axillary areas. LABORATORY DATA: Chest x-ray has been reviewed. This is essentially normal. Atelectatic changes and scars are still present, but markedly improved from previous films. EKG sinus rhythm, nonspecific ST-T wave changes. Laboratory studies show a white count of 6000, hemoglobin of 11, hematocrit 36, platelet count 253,000. Monos are 12.5%, eos are normal. Coags: INR OF 0.99. Chemistries: carbon dioxide of 33. Electrolytes normal otherwise, BUN of 14, creatinine 0.5, calcium 138. BNP on admission 944. IMPRESSION: 1. Chronic obstructive pulmonary disease. 2. Morbid obesity. 3. Obstructive sleep apnea. 4. Pulmonary artery hypertension. 5. Asthma with bronchospasm, in remission. 6. Emphysema 7. Abdominal hernia repair with questionable sepsis. 8. Chronic urinary tract infections. PLAN: This blake patient has been lost to our followup, but she remains extremely stable. I am not aware of all the medications that we had given her in the past and which she needs at this point, I believe that she has been on a beta agonist in the past, though it states in her chart currently that she is ALLERGIC TO SPIRIVA. I will review this information and get back to Dr. Goode who will see this patient on Wednesday. Continue vigorous bronchodilator therapy and inhaled corticosteroids. IV steroids are being given. They should be tapered slowly. We will need further evaluation later of the pulmonary artery hypertension as well as the obstructive sleep apnea. The patient will require echocardiogram and polysomnography. No additional problems at this time. Suggest continuation of losing weight or at least not gaining back any of the weight previously lost. Continue vigorous bronchodilator as an outpatient. We will continue to see her in the intensive care unit and once she is sent to the floor, she should be discharged at the earliest possible time to prevent iatrogenic infection. We will be happy to follow her once again as an outpatient if she is discharged to home and can get to my office. It has been a pleasure seeing the patient again after such a long hiatus. Casper Julio MD cc: [phone] TT: 08/08/2016 14:00:00 Confirmation # [id number] Dictation # [id number] [id number]
--- NOTE | 2016-08-08 15:17 | PN ---
DATE: 08/08/2016 SUBJECTIVE: The patient is 66 years old, seen and examined, looks better than before, less cough and congestion. PHYSICAL EXAMINATION: VITAL SIGNS: She is afebrile, pulse 80, respirations 17, blood pressure 134/65. LUNGS: Bilateral good airflow, no rhonchi or crackle. HEART: S1, S2 audible. No murmur. ABDOMEN: Soft. Her wound seems to be healing. At the upper edge there is a 1/4 inch of superficial skin gaping but no discharge, no erythema noted. EXTREMITIES: Bilateral legs, no edema, no ulcers. LABORATORY EXAM: WBC 6.2, hemoglobin 11.5, hematocrit 35.7, platelet 253. Chemistry: Sodium 140, p otassium 4.3, chloride 98, CO2 of 34, BUN 14, creatinine 0.5, blood sugar 138. ASSESSMENT AND PLAN: 1. Chronic obstructive pulmonary disease exacerbation. 2. Bronchospasm. 3. Hypertension. 4. Hyperlipidemia. 5. Coronary artery disease, status post non-ST elevation myocardial infarction on previous admission . PLAN: The patient is currently on aspirin 81 daily. She is on Lasix and statins. She is on DVT pro phylaxis. She is getting SCDs. She is on Plavix and she is on IV steroids. She is scheduled for po ssible cardiac catheterization on Wednesday. Lori Aguila MD cc: [phone] TT: 08/08/2016 15:16:50 Confirmation # [id number] Dictation # [id number] dn
[2016-08-09] MEDS: Levalbuterol 1.25 MG/3 ML Inhal Soln UD IH PRN ×2 (05:25→12:36)
[2016-08-09] MEDS: Pantoprazole 40 mg EC Tab PO SCH (05:38)
[2016-08-09] MEDS: Levothyroxine 112 MCG TAB PO SCH (07:58)
[2016-08-09] MEDS: Potassium Chloride 20 mEq ER Tab PO SCH (09:05)
[2016-08-09] MEDS: MethylPREDNISolone 40 mg Vial IV SCH ×2 (09:06→21:17)
[2016-08-09] MEDS: Metoprolol Succinate 25 mg XL Tab PO SCH (09:06)
[2016-08-09] MEDS: Enoxaparin 30 mg Syringe SC SCH (09:07)
--- NOTE | 2016-08-09 12:51 | CP.PCM.PN ---
Subjective - Date & Time of Evaluation Date of Evaluation: 08/09/16 Time of Evaluation: 12:48 - Subjective Subjective: Surgery: Dr. Reeder Pt seen and examined. Pt has some SOB and congestion. No pain at incision site. No further episodes of diarrhea Objective - Vital Signs/Intake and Output Vital Signs (last 24 hours): Temp Pulse Resp BP Pulse Ox 98 F 102 H 26 H 153/66 H 96 08/09/16 05:54 08/09/16 10:00 08/09/16 04:00 08/09/16 09:14 08/09/16 04:44 Intake and Output: 08/09/16 08/09/16 06:59 18:59 Intake Total 140 Output Total 550 Balance -410 - Medications Medications: Current Medications Alprazolam (Xanax) 0.5 mg PO BID [facility] PRN Reason: Protocol Last Admin: 08/09/16 09:07 Dose: Not Given Aspirin (Ecotrin) 81 mg PO DAILY [facility] Last Admin: 08/09/16 09:05 Dose: 81 mg Atorvastatin Calcium (Lipitor) 10 mg PO DIN [facility] Last Admin: 08/08/16 17:04 Dose: 10 mg Clopidogrel Bisulfate (Plavix) 75 mg PO DAILY [facility] Last Admin: 08/09/16 09:06 Dose: 75 mg Enoxaparin Sodium (Lovenox) 30 mg SC DAILY [facility] PRN Reason: Protocol Stop: 08/09/16 23:59 Last Admin: 08/09/16 09:07 Dose: 30 mg Furosemide (Lasix) 40 mg PO DAILY [facility] Last Admin: 08/09/16 09:14 Dose: 40 mg Levalbuterol HCl (Xopenex) 1.25 mg IH [id number] PRN PRN Reason: Shortness of Breath Last Admin: 08/09/16 12:36 Dose: 1.25 mg Levothyroxine Sodium (Synthroid) 112 mcg PO ACB [facility] Last Admin: 08/09/16 07:58 Dose: 112 mcg Lisinopril (Zestril) 5 mg PO DAILY [facility] Last Admin: 08/09/16 09:14 Dose: 5 mg Methylprednisolone (Solu-Medrol) 40 mg IV Q12 [facility] Last Admin: 08/09/16 09:06 Dose: 40 mg Metoprolol Succinate (Toprol Xl) 25 mg PO DAILY [facility] Last Admin: 08/09/16 09:06 Dose: 25 mg Non-Formulary Medication (Alprazolam [Alprazolam Xr]) 0.5 mg PO BID [facility] Last Admin: 08/07/16 21:37 Dose: Not Given Ondansetron HCl (Zofran Inj) 4 mg IVP Q6H PRN PRN Reason: Nausea/Vomiting Last Admin: 08/09/16 05:40 Dose: 4 mg Pantoprazole Sodium (Protonix Ec Tab) 40 mg PO 0630 [facility] Last Admin: 08/09/16 05:38 Dose: 40 mg Polyethylene Glycol (Miralax) 17 gm PO HS [facility] Last Admin: 08/07/16 21:43 Dose: 17 gm Potassium Chloride (K-Dur 20 Meq Er Tab) 20 meq PO DAILY [facility] Last Admin: 08/09/16 09:05 Dose: 20 meq Tramadol HCl (Ultram) 25 mg PO Q6H PRN PRN Reason: Pain, moderate (4-7) Last Admin: 08/09/16 03:35 Dose: 25 mg - Labs Labs: 08/08/16 06:56 08/08/16 06:56 PT 10.7 Seconds (9.9-11.8) 08/07/16 10:40 INR 0.99 (0.93-1.08) 08/07/16 10:40 APTT 25.7 Seconds (23.7-30.8) 08/07/16 10:40 - Constitutional Appears: No Acute Distress, Chronically Ill - Head Exam Head Exam: ATRAUMATIC, NORMOCEPHALIC - Eye Exam Eye Exam: EOMI - ENT Exam ENT Exam: Mucous Membranes Dry - Neck Exam Neck Exam: Full ROM - Respiratory Exam Respiratory Exam: Prolonged Expiratory Phase - GI/Abdominal Exam GI & Abdominal Exam: Soft, Tenderness (mild chauncey-incisional ). absent: Distended, Firm, Guarding, Rigid Additional comments: incision is clean, no signs of infection, inferior portion of incision is located in between skin folds and is moist, again no signs of infection - Extremities Exam Extremities Exam: absent: Calf Tenderness - Neurological Exam Neurological Exam: Alert, Awake, Oriented x3 Assessment and Plan - Assessment and Plan (Free Text) Assessment: 66F with multiple co-morbidities admitted for SOB; surgery consulted to evaluate surgical incision -no signs of infection, keep inferior portion of incision dry by placing gauze in skin fold -f/u on C.diff -d/w attending Gerson POPEY2
[2016-08-09] MEDS: Promethazine/Cod 6.25mg-10mg/5ml Syr UD PO PRN ×2 (13:58→21:17)
[2016-08-09] MEDS: POLYETHYLENE GLYCOL 3350 17 GM/Dose PACKET PO SCH (21:15)
--- NOTE | 2016-08-10 01:14 | PN ---
DATE: 08/09/2016 The patient is a 66-year-old female admitted to the hospital with shortness of breath and chest pain for 1 day. She has history of myocardial infarction and abdominal surgery for hernia repair. She guzman s history of DVT in the past. VQ scan showed low probability of pulmonary embolism. She is planned for cardiac catheterization tomorrow. She is still short of breath, but has improved since admission . She was nonstanding during last admission Diabetes mellitus blood sugars are controlled on current medications. PAST MEDICAL HISTORY: Myocardial infarction, status post inferior vena cava filter placement, hypert ension, cerebrovascular accident, chronic obstructive pulmonary disease exacerbation, diabetes mellit us type 2, history of diverticulosis, hiatal hernia, gastroesophageal reflux, incontinence. PAST SURGICAL HISTORY: Cholecystectomy, coronary stent placement, hernia repair. ALLERGIES: MULTIPLE DRUG ALLERGIES CIPROFLOXACIN, IODINE, ZYVOX, SULFA, SPIRIVA, SEAFOOD. PERSONAL HISTORY: Former smoker. No history of substance abuse. SOCIAL HISTORY: Lives at home with daughter. FAMILY HISTORY: No positive family history in mother and father. MEDICATIONS: Reviewed. REVIEW OF SYSTEMS: As per HPI. Rest of 12-point review of systems reviewed and negative. PHYSICAL EXAMINATION: VITAL SIGNS: Tachycardia, heart rate 100 per minute, tachypnea, respiratory rate 20 per minute, bloo d pressure 110/70, pulse ox 98% room air, and temperature 98.5. HEAD: Atraumatic, normocephalic. HEENT: Normal. NECK: No lymphadenopathy. CHEST: Bilateral rhonchi present, bilateral crepitations present. CARDIOVASCULAR: S1, S2 normal. No murmur, no gallop. ABDOMEN: Soft, nontender, no hepatosplenomegaly. EXTREMITIES: No edema. SKIN: Warm, dry. No rash. NEUROLOGIC: Alert, oriented x 3, no focal sensorimotor deficit. SPINE: Normal. LYMPHADENOPATHY: None. LABORATORY DATA: White count 6.2, hemoglobin 11.5, hematocrit 35.7, platelet count 253. Sodium 140, potassium 4.3, BUN 14, creatinine 0.5, glucose 138, calcium 8.9, AST 23, ALT 20. Coags normal. MEDICATIONS: Xanax 0.5 mg b.i.d., aspirin 81 mg daily, Lipitor 10 mg daily, Plavix 75 mg daily, Love nox 30 mg subQ daily, Lasix 40 mg daily, Xopenex inhalation, levothyroxine 112 mcg daily, lisinopril 5 mg daily, Solu-Medrol 40 mg IV every 12, Xanax 0.5 mg b.i.d., MiraLax p.r.n., Ultram p.r.n. ASSESSMENT: 1. Non STEMI. 2. Coronary artery disease. 2. Chronic obstructive pulmonary disease exacerbation. 3. Diabetes mellitus type 2. 4. Anemia. 5. History of deep venous thrombosis, status post inferior vena cava filter. PLAN: She is scheduled for cardiac catheterization tomorrow with Dr. Mariano. She has severe cough dry cough. We will give Phenergan with codeine p.r.n. We will continue above medication. Continue asp irin, Plavix and Lovenox subQ 30 mg. She has IVC filter, no evidence of DVT now. Chronic anemia. H emoglobin and hematocrit stable. Transfer to tele monitoring. once bed is available. Discussed wit h the patient, discussed with the staff nurse, discussed with the daughter at bedside. Itzel Saucedo MD cc: [id number] TT: 08/10/2016 01:13:51 Confirmation # [id number] Dictation # [id number] michelle
[2016-08-10] MEDS: Pantoprazole 40 mg EC Tab PO SCH (05:47)
[2016-08-10] MEDS: Levalbuterol 1.25 MG/3 ML Inhal Soln UD IH PRN (06:12)
[2016-08-10] MEDS ORDERED: Levalbuterol 1.25 MG/3 ML Inhal Soln UD IH PRN (07:02)
[2016-08-10] MEDS ORDERED: Levalbuterol 0.63 MG/3 ML Inhal Soln UD IH PRN ×2 (07:02→07:03)
[2016-08-10] MEDS: Levothyroxine 112 MCG TAB PO SCH (07:30)
--- NOTE | 2016-08-10 07:38 | CP.PCM.PN ---
Subjective - Date & Time of Evaluation Date of Evaluation: 08/10/16 Time of Evaluation: 07:35 - Subjective Subjective: PROGRESS NOTE FOR SURGERY DR. REEDER 66 year old female is seen and examined at bedside. No acute events overnight. Denies having any fevers or chills. Still c/o of small amount of pain on LLQ of abdomen. Objective - Vital Signs/Intake and Output Vital Signs (last 24 hours): Temp Pulse Resp BP Pulse Ox 97.5 F L 83 19 146/74 98 08/10/16 05:02 08/10/16 05:02 08/10/16 05:02 08/10/16 05:02 08/10/16 05:02 Intake and Output: 08/10/16 08/10/16 06:59 18:59 Intake Total 50 Balance 50 - Medications Medications: Current Medications Alprazolam (Xanax) 0.5 mg PO BID [facility] PRN Reason: Protocol Last Admin: 08/09/16 17:36 Dose: 0.5 mg Aspirin (Ecotrin) 81 mg PO DAILY [facility] Last Admin: 08/09/16 09:05 Dose: 81 mg Atorvastatin Calcium (Lipitor) 10 mg PO DIN [facility] Last Admin: 08/09/16 16:47 Dose: 10 mg Clopidogrel Bisulfate (Plavix) 75 mg PO DAILY [facility] Last Admin: 08/09/16 09:06 Dose: 75 mg Furosemide (Lasix) 40 mg PO DAILY [facility] Last Admin: 08/09/16 09:14 Dose: 40 mg Levalbuterol HCl (Xopenex) 0.63 mg IH Q2 PRN PRN Reason: Shortness of Breath Levalbuterol HCl (Xopenex) 0.63 mg IH [id number] [facility] Levothyroxine Sodium (Synthroid) 112 mcg PO ACB [facility] Last Admin: 08/09/16 07:58 Dose: 112 mcg Lisinopril (Zestril) 5 mg PO DAILY [facility] Last Admin: 08/09/16 09:14 Dose: 5 mg Methylprednisolone (Solu-Medrol) 30 mg IVP Q12 [facility] Metoprolol Succinate (Toprol Xl) 25 mg PO DAILY [facility] Last Admin: 08/09/16 09:06 Dose: 25 mg Non-Formulary Medication (Alprazolam [Alprazolam Xr]) 0.5 mg PO BID [facility] Last Admin: 08/07/16 21:37 Dose: Not Given Ondansetron HCl (Zofran Inj) 4 mg IVP Q6H PRN PRN Reason: Nausea/Vomiting Last Admin: 08/09/16 05:40 Dose: 4 mg Pantoprazole Sodium (Protonix Ec Tab) 40 mg PO 0630 [facility] Last Admin: 08/10/16 05:47 Dose: Not Given Polyethylene Glycol (Miralax) 17 gm PO HS [facility] Last Admin: 08/09/16 21:15 Dose: 17 gm Potassium Chloride (K-Dur 20 Meq Er Tab) 20 meq PO DAILY [facility] Last Admin: 08/09/16 09:05 Dose: 20 meq Promethazine HCl/Codeine (Phenergan/Codeine Oral Syrup) 5 ml PO Q4H PRN PRN Reason: Cough and congestion Last Admin: 08/09/16 21:17 Dose: 5 ml Tramadol HCl (Ultram) 25 mg PO Q6H PRN PRN Reason: Pain, moderate (4-7) Last Admin: 08/09/16 16:47 Dose: 25 mg - Labs Labs: 08/08/16 06:56 08/08/16 06:56 PT 10.7 Seconds (9.9-11.8) 08/07/16 10:40 INR 0.99 (0.93-1.08) 08/07/16 10:40 APTT 25.7 Seconds (23.7-30.8) 08/07/16 10:40 - Constitutional Appears: Non-toxic, No Acute Distress - ENT Exam ENT Exam: Mucous Membranes Moist - Respiratory Exam Respiratory Exam: absent: Accessory Muscle Use, Respiratory Distress - GI/Abdominal Exam GI & Abdominal Exam: Soft, Tenderness (periumbilical ). absent: Distended, Firm , Guarding, Rigid Additional comments: midline incision in place and not draining. Patient has excess fat folds with moist skin under the folds - Neurological Exam Neurological Exam: Alert, Awake, Oriented x3 - Psychiatric Exam Psychiatric exam: Normal Affect, Normal Mood - Skin Skin Exam: Intact, Normal Color, Warm Additional comments: moist skin under abd skin folds Assessment and Plan - Assessment and Plan (Free Text) Assessment: 66F with multiple co-morbidities admitted for SOB; surgery consulted to evaluate midline abd surgical incision. Wound culture grew yeast, negative for MRSA. -no signs of infection, keep inferior portion of incision dry by placing gauze in skin fold -No surgical intervention at this time. Will sign off. Please re-consult if needed. Will d/w Dr. Reeder for further recs Ansley Joe PGY1
--- NOTE | 2016-08-10 08:07 | HP ---
The patient is a 66-year-old who called me this morning that she is having shortness of breath, chest tightness, and difficulty breathing. The patient came home from rehab in [place] 2 days ago. The patient states she has been ambulating, but denies any fever or chills. Does complain of chest tight ness. Denies any nausea or vomiting. The patient was recently admitted in hospital for her recurren t abdominal wall infection. She had infected mesh removed, and she remained on long-term antibiotics , and she was transferred to rehab to complete her course of antibiotics. PAST MEDICAL HISTORY: Also significant for: 1. COPD. 2. Coronary artery disease, status post angioplasty. 3. Status post ventral hernia repair, and followed by infection of the mesh, and that was removed al so. 4. Chronic degenerative disk disease. 5. Hiatal hernia. 6. Advanced COPD. ALLERGIES: SHE IS ALLERGIC TO: 1. CIPRO. 2. SPIRIVA. 3. SULFA DRUGS AND IODINE. MEDICATIONS AT HOME: She is on: 1. Simvastatin 20 mg daily, prednisone 5 mg twice a day, K-Dur 20 mEq daily, Omeprazole 40 mg daily. 2. Metoprolol 25 daily. 3. Lisinopril 5 mg daily. 4. Lasix 40 mg daily. 5. Plavix 75 daily. 6. Vitamin D 50,000 q. weekly, and 0.5 twice a day. REVIEW OF SYSTEMS: Significant for shortness of breath, cough, and chest tightness. On examination she is lying in bed. Complained of chest pressure and shortness of breath. VITAL SIGNS: She is afebrile, pulse 100, respirations 18, blood pressure 123/64. LUNGS: Bilateral fair airflow. Few expiratory rhonchi, diffuse, scattered posteriorly. HEART: S1, S2 audible. ABDOMEN: Soft, obese, nontender, no rebound, no guarding. She has some whitish discharge from her p revious wound of abdominal wall. BILATERAL LEGS: No edema. LABORATORY EXAMINATION: WBC 7.1, hemoglobin 11.8, hematocrit 37.4, platelet 263. PT 10.7, INR 0.99. Chemistry: Sodium 139, potassium 3.4, chloride 96, CO2 of 33, BUN 10, creatinine 0.5. Blood sugar of 169. LFTs are within normal limits. Troponin 0.01. BNP is 944. Urine analysis shows small bili abdi and trace protein. Lung scan, nuclear, shows low probability ventilation perfusion scan. X-ray chest is unremarkable. ASSESSMENT AND PLAN: 1. Chronic obstructive pulmonary disease exacerbation. 2. Chest tightness. Rule out underlying coronary artery disease. The patient had angioplasty done 2 -3years ago. 3. Terminal chronic obstructive pulmonary disease. 4. Hypertension. 5. Hyperlipidemia. 6. Chronic degenerative disk disease. PLAN: The patient will be admitted on telemetry. Will do serial EKGs and follow up cardiac enzymes. Dr. Mariano for consult. Start her on nebulizer treatment, and start her usual medication, anxiolytic s, nebulizer treatment, small dose of IV steroids. Dr. Reeder for consult to follow up her abdomin al wall wound. Lori Aguila MD cc: [phone] TT: 08/07/2016 19:29:35 jn
[2016-08-10] MEDS: Metoprolol Succinate 25 mg XL Tab PO SCH (09:03)
[2016-08-10] MEDS: MethylPREDNISolone 40 mg Vial IVP SCH ×2 (09:04→21:37)
--- NOTE | 2016-08-10 09:11 | PN ---
DATE: 08/10/2016(625am--710am) SUBJECTIVE: The patient appears comfortable this morning. She is not short of breath at rest. PHYSICAL EXAMINATION: VITAL SIGNS: Temperature is 97.5, pulse 83, respirations 19, blood pressure 146 /74. Oxygen saturation on nasal cannula is 98%. HEENT: Normocephalic, atraumatic. No JVD. CARDIOVASCULAR: Positive S1, S2. No S3. LUNGS: Decreased breath sounds at the bases. Minimal rhonchi. No wheezing. EXTREMITIES: Mild edema. No cyanosis, no clubbing. Calves are nontender to palpation. GASTROINTESTINAL: Abdomen is soft, nontender, nondistended. Bowel sounds are positive. SKIN: No acute rash. NEUROLOGIC: Limited at the present time. IMPRESSION: 1. Acute bronchitis. 2. Advanced chronic obstructive pulmonary disease. 3. Coronary artery disease. 4. Diabetes mellitus. 5. Anemia. PLAN: The patient appears comfortable this morning. She is not short of breath at rest. Oxygen saturation on nasal cannula is now 98%. On physical exam, there is only minimal bronchospasm noted. I will change the Xopenex nebulizer treatments to scheduled dosage, and decrease the intravenous steroids this morning. Cardiology evaluation is ongoing. The patient is for cardiac catheterization later this morning. I did discuss the case with the night nurse at length. Clinical status of this patient is certainly improved overall. I will discuss the above with the entire ICU team in the next few moments. I will also discuss the above with the attending physician. Kris Goode MD cc: [phone] TT: 08/10/2016 09:10:33 Confirmation # [id number] Dictation # [id number] en MTDD
--- NOTE | 2016-08-10 09:55 | PN ---
DATE: 08/10/2016 REASON FOR CONSULTATION AND FOLLOWUP: History of coronary artery disease, chest pain, rule out non-S T-segment myocardial infarction, admitted with chest pain, shortness of breath, exacerbation of COPD. BRIEF CLINICAL HISTORY: This is a 66-year-old female with past medical history significant for COPD, hypertension, hyperlipidemia; coronary artery disease, status post PTCA of the circumflex, distal, 0 05/30/2013; who was admitted with a ventral hernia repair, infected mesh removed in 05/2016. Subseque ntly, the patient developed svz-HL-ijwific myocardial infarction. The patient was scheduled for card iac catheterization 07/29/2016 which later was postponed to 08/10/2016 as outpatient, but Wednesday morn ing the patient called to cancel and rescheduled in 2 weeks. But, later on Wednesday afternoon, patient developed chest pain, shortness of breath and came to the Emergency Room. The patient is scheduled for cardiac catheterization today. Denies any chest pain now. PHYSICAL EXAMINATION: VITAL SIGNS: Temperature afebrile, heart rate 92, blood pressure 146/74. HEENT: PERRLA. Extraocular muscles intact. NECK: Supple. No carotid bruits. No thyromegaly. CHEST: Clear to auscultation. HEART: S1, S2 regular. ABDOMEN: Soft. EXTREMITIES: Clubbing and cyanosis negative. BLOOD WORKUP: WBC 6.2, hemoglobin 11.5, hematocrit 35.7, platelet count 253. Chemistry shows sodium 140, potassium 4.3, chloride ____, carbon dioxide 34, anion gap of 12, BUN 14, creatinine 0.5. Trop onin 0.01 x 2, negative. IMPRESSION: No evidence of jcb-OU-obqzxxi myocardial infarction, acute coronary syndrome, unstable a ngina, diabetes, hypertension, hyperlipidemia; coronary artery disease, status post percutaneous hendricks sluminal coronary angioplasty of the circumflex, distal, in 05/30/2013; history of zea-WL-kcoaxph patito cardial infarction in 05/2016; chronic obstructive pulmonary disease exacerbation. RECOMMENDATIONS: Continue aspirin and Plavix. Last echocardiogram shows ejection fraction 50-55% dated 07/01/2016, trace aortic regurgitation, mild to moderate valvular aortic stenosis, trace to mild regurgitation, right ventricular systolic pressu re at 22. RECOMMENDATION: Continue potassium, continue Lasix, continue clopidogrel. Will keep n.p.o. for card iac catheterization. Further recommendation after cardiac catheterization. Continue metoprolol. Wi ll follow with you. Thank you, Dr. Aguila, for providing the opportunity in taking care of this patient. Princess Mariano MD cc: [phone] TT: 08/10/2016 09:55:18 Confirmation # [id number] Dictation # [id number] mn
[2016-08-10] MEDS: Famotidine 20mg/50ml 50 ML IVPB ONE ×2 (11:00→20:27)
[2016-08-10] MEDS: DiphenhydrAMINE 50 mg/ml Inj ONE ×2 (11:15→20:27)
[2016-08-10] MEDS ORDERED: Iodixanol 320 MG/ML 200 ML BOTTLE IV ONE (11:23)
[2016-08-10] MEDS ORDERED: Lidocaine 2% Inj (20ml) ONE (11:23)
[2016-08-10] MEDS ORDERED: Midazolam 2 MG/2 ML VIAL ONE (11:23)
--- NOTE | 2016-08-10 12:34 | PN ---
DATE: 08/10/2016 SUBJECTIVE: The patient is a 66-year-old, seen and examined. A bit nervous. Heading to get cardiac catheterization today. Still has chest pain. Complained of shortness of breath and some wheezing. PHYSICAL EXAMINATION: VITAL SIGNS: She is afebrile, pulse 92, respirations 19, blood pressure 146/74. LUNGS: Bilateral fair airflow in the upper lung region. Has expiratory rhonchi on auscultation in t he back lung zone. HEART: S1, S2 audible. ABDOMEN: Soft, obese, nontender. Status post ventral hernia repair. The wound seems to be healing. NEUROLOGIC: She is awake and alert, communicative. LABORATORY: There is no new lab available today. Her wound cultures are negative. ASSESSMENT AND PLAN: 1. Chronic obstructive pulmonary disease exacerbation. 2. Chest pain, rule out underlying coronary artery disease. The patient did have kdz-OJ-kofxcqhlh m yocardial infarction on previous admission when she was admitted for removal of infected mesh. 3. Coronary artery disease, status post angioplasty. 4. Terminal chronic obstructive pulmonary disease for which she is steroid and oxygen dependent. 5. Deconditioning and difficulty walking. PLAN: The patient is going for cardiac catheterization today. Will follow up the results. She is g etting IV diuretics, potassium supplementation. She is on statins and she is getting Plavix. She is also on IV steroids and Synthroid. Will continue all that and reevaluate patient in the a.m. Lori Aguila MD cc: [phone] TT: 08/10/2016 12:33:31 Confirmation # [id number] Dictation # [id number] mn
[2016-08-10] MEDS ORDERED: Sodium Chloride 0.9% 1,000 ML IV SCH (12:45)
[2016-08-10] MEDS: Potassium Chloride 20 mEq ER Tab PO SCH (14:00)
[2016-08-10] MEDS: Oxycodone/Acetaminophen 5/325 mg Tab PO PRN ×2 (15:47→21:45)
--- NOTE | 2016-08-10 18:12 | CARD ---
APPROVED REPORT Procedure(s) performed: Left Heart Catheterization HISTORY The patient is a 66 year-old female with a history of : previous PCI (The PCI date was 05/2013), hypertension , dyslipidemia , Admitted with Copd exacerbation and Chest pain, HX of NSTEMI two monnths ago which she developped Myesha-op during hernia surgery and was matthew for out pt for Cath, but pt admitted with Chest pain unstable angina. INDICATION The indication(s) include : unstable angina . CASE TECHNIQUE The patient was brought urgently to the Cardiac Catheterization Laboratory in a fasting state and was prepped and draped in a sterile manner. The right femoral groin was infiltrated with 2% Lidocaine subcutaneous anesthesia. A 6 Fr x 11 cm Senait sheath was inserted into the right femoral artery without difficulty. Coronary angiography was performed using coronary diagnostic catheters. The left coronary system was accessed and visualized with a Diagnostic , JL4.0 catheter. The right coronary system was accessed and visualized with a Diagnostic ,JR4.0 catheter. The left ventricle was accessed and visualized with a pig tail catheter. Left ventricular/Aortic Valve gradient assessed on pullback. Left ventriculogram was performed in KING projection. Closure device was deployed with a 6 Fr / 7 Fr MynxGrip without any complications. The patient tolerated the procedure well and there were no complications associated with the procedure. Vessel Analysis The patient's coronary anatomy is co-dominant. The left main coronary artery is a large size vessel without significant stenosis. The left main bifurcates to the left anterior descending and circumflex. The left anterior descending artery is a medium size vessel with diffuse calcification noted throughout this vessel and without significant stenosis. There is a 40% stenosis in the mid segment. The first diagonal branch is a small size vessel with diffuse calcification noted throughout this vessel and without significant stenosis. There is a 55% stenosis in the ostial segment. The circumflex artery is a large size vessel with diffuse calcification noted throughout this vessel and without significant stenosis. patent stent distally There is a 30-40% stenosis in the mid segment. The first obtuse marginal branch is a small size vessel with diffuse calcification noted throughout this vessel and without significant stenosis. The second obtuse marginal branch is a small size vessel with diffuse calcification noted throughout this vessel and without significant stenosis. The left posterior descending artery is a medium size vessel with diffuse calcification noted throughout this vessel and without significant stenosis. The right coronary artery is a medium size vessel with diffuse calcification noted throughout this vessel and without significant stenosis. There is a 30-40% stenosis in the mid segment. diffusely diz The right posterior descending artery is a small size vessel with diffuse calcification noted throughout this vessel and without significant stenosis. Left Ventricle The left ventricle is normal in size with normal contractility. There was no cardiomyopathy. The left ventricular ejection fraction is estimated to be 65%. The left ventricular end diastolic pressure is 18 mmHg. There was no gradient across the aortic valve upon pullback. Conclusion Non obstructive CAD Patent stent in distal Cx. Mild to Moderate Diz. in LAD/CX D1 Moderate Diz. 55% ostial. preserved Lv Fx. EF-65%, EDP-18 Recommendations Smoking Cessation Aggressive Medical TherapyCardiac Risk Reduction Program Weight Loss Reduction Program CC; Drs. Aguila/ Silvina.
[2016-08-10] MEDS: Levalbuterol 0.63 MG/3 ML Inhal Soln UD IH SCH (20:04)
[2016-08-10] MEDS: POLYETHYLENE GLYCOL 3350 17 GM/Dose PACKET PO SCH (21:37)
[2016-08-11] MEDS: Levalbuterol 0.63 MG/3 ML Inhal Soln UD IH SCH ×4 (01:26→20:13)
[2016-08-11] MEDS: Pantoprazole 40 mg EC Tab PO SCH (05:33)
[2016-08-11 07:22] LABS: ADD MANUAL DIFF? NO
[2016-08-11 07:28] LABS: GRAN # 5.89 (1.4-6.5); HEMATOCRIT 35.9 % (36.0-48.0); LYMPH % 23.1 % (22.0-35.0); MEAN CELL VOLUME 94.5 fL (80.0-105.0); MEAN CORPUSCULAR HEMOGLOBIN 29.7 pg (25.0-35.0); MEAN CORPUSCULAR HGB CONC 31.5 g/dl (31.0-37.0); MEAN PLATELET VOLUME 11.3 fl (7.0-11.0); MONO # 0.7 (0.1-0.6); MONO % 7.9 % (1.0-6.0); PLATELET COUNT 295 10^3/uL (120.0-450.0); WHITE BLOOD COUNT 8.5 10^3/ul (4.5-11.0)
[2016-08-11 08:19] LABS: ALB/GLOB RATIO 1.1 (1.1-1.8); ALKALINE PHOSPHATASE 45 U/L (38-133); ALT/SGPT 23 U/L (7-56); AST/SGOT 35 U/L (15-39); BILIRUBIN,TOTAL 0.5 mg/dL (0.2-1.3); BLOOD UREA NITROGEN 15 mg/dL (7-21); CALCIUM 8.6 mg/dL (8.4-10.5); CARBON DIOXIDE 33 mmol/L (21-33); CHLORIDE 98 mmol/L (98-107); GFR AFRICAN-AMERICAN > 60; GLUCOSE,RANDOM 115 mg/dL (70-110); MAGNESIUM 2.2 mg/dL (1.7-2.2); PHOSPHOROUS 3.8 mg/dL (2.5-4.5); POTASSIUM 3.2 mmol/L (3.6-5.0); SODIUM 140 mmol/L (132-148); TOTAL PROTEIN 6.5 g/dL (5.8-8.3)
[2016-08-11] MEDS: Potassium Chloride 20 mEq ER Tab PO SCH (09:08)
[2016-08-11] MEDS: MethylPREDNISolone 40 mg Vial IVP SCH ×2 (09:09→21:48)
[2016-08-11] MEDS: Levothyroxine 112 MCG TAB PO SCH (09:09)
[2016-08-11] MEDS: Metoprolol Succinate 25 mg XL Tab PO SCH (09:09)
[2016-08-11] MEDS: Oxycodone/Acetaminophen 5/325 mg Tab PO PRN ×2 (09:11→21:59)
--- NOTE | 2016-08-11 10:29 | PN ---
DATE: 08/11/2016 SUBJECTIVE: The patient appears comfortable this morning. She is not short of breath at rest. OBJECTIVE: VITAL SIGNS: Temperature is 97.1, pulse 64, respirations 18-20, blood pressure 147/71. Oxygen saturation on nasal cannula is 97%. HEENT: Normocephalic, atraumatic. No JVD. CARDIOVASCULAR: Positive S1, S2. No S3. LUNGS: Decreased breath sounds at the bases. Still with minimal rhonchi and wheezing bilaterally. EXTREMITIES: Mild edema. No cyanosis, no clubbing. Calves are nontender to palpation. GASTROINTESTINAL: Abdomen is soft, nontender, nondistended. Bowel sounds are positive. SKIN: No acute rash. NEUROLOGIC: Limited at the present time. IMPRESSION: 1. Acute bronchitis. 2. Advanced chronic obstructive pulmonary disease. 3. Coronary artery disease. 4. Diabetes mellitus. 5. Anemia. PLAN: The patient appears comfortable this morning. She is not short of breath at rest. She states she is feeling much better overall. On physical exam, there is still mild bronchospasm noted. However, there is no significant alveolar arterial gradient. Oxygen saturation on nasal cannula is now 97%. I will continue with the current nebulizer treatments and current intravenous steroids (decreased yesterday) for now. The patient is status post cardiac catheterization. Input by Dr. Mariano is noted. Repeat a.m. labs are pending. Clinical status of the patient is certainly improved compared to the initial presentation. However, the overall status/prognosis of this patient remains very guarded. I will discuss the above with Dr. Aguila. Kris Goode MD cc: [id number] TT: 08/11/2016 10:28:20 Confirmation # [id number] Dictation # [id number] chana GALICIA
[2016-08-11] MEDS ORDERED: Potassium Chloride 20 mEq ER Tab PO ONE (11:38)
--- NOTE | 2016-08-11 12:36 | PN ---
DATE: 08/11/2016 SUBJECTIVE: The patient is 66 years old, seen and examined, sitting in chair, complaining of some co ugh and congestion with wheezing. She did have a tough night. She says she was short of breath, was given nebulizer treatment. PHYSICAL EXAMINATION: GENERAL: Today, she looks comfortable, sitting in chair. She still has audible wheezing. VITAL SIGNS: She is afebrile, pulse 64, respirations 20, blood pressure 140/70. LUNGS: Bilateral expiratory rhonchi anteriorly and posteriorly. HEART: S1, S2 audible. ABDOMEN: Soft, nontender. No rebound, no guarding. NEUROLOGIC: The patient is awake and alert, communicative. EXTREMITIES: Bilateral legs, no edema. LABORATORY EXAMINATION: WBC is 8.5, hemoglobin 11.3, hematocrit 35.9, platelets of 295. PT 10.7, IN R 0.99, PTT 25.7. Chemistry: Sodium 140, potassium 3.2, chloride 98, CO2 of 33, BUN 15, creatinine 0.5, blood sugar of 115. Had abdominal wound positive for corynebacterium probably contamination. M RSA not detected. ASSESSMENT AND PLAN: 1. Chronic obstructive pulmonary disease exacerbation. 2. Chest pain status post cardiac catheterization, negative for any occlusion. She did have non-ST elevation myocardial infarction on previous admission. 3. Deconditioning, difficulty walking. 4. Status post ventral hernia repair. 5. Steroid and oxygen-dependent because of terminal chronic obstructive pulmonary disease. 6. Bronchospasm and asthmatic bronchitis. PLAN: Cardiology-barcenas, she is stable. We will discontinue telemetry if it all clear with Dr. Mariano. We will continue her on usual medications including aspirin, Xanax. Her potassium has been suppleme nted. She is on 20 mEq daily. She is getting Lasix 40 daily, and she is on Lipitor, Percocet as nee ded. We will continue her on Protonix and IV prednisone. She is on beta-ajay also. She is getti ng Xopenex. Encourage ambulation, out of bed to chair. Will request for SCDs. I will request for T CU evaluation for slow taper down of steroid and watching her respiratory status. We will reevaluate the patient in a.m. Lori Aguila MD cc: [phone] TT: 08/11/2016 12:35:29 Confirmation # [id number] Dictation # [id number] jn
--- NOTE | 2016-08-11 13:42 | PN ---
DATE: 08/11/2016 REASON FOR CONSULTATION AND FOLLOWUP: History of coronary artery disease, chest pain, cardiac cathet erization, nonobstructive coronary artery disease. BRIEF CLINICAL HISTORY: A 66-year-old female with past medical history significant for COPD, hyperte nsion, hyperlipidemia, coronary artery disease, status post ____ circumflex 05/30/2013, recently admitt ed after hernia surgery complicated by infected mass, zpi-BZ-osbylky myocardial infarction, scheduled for a stress test as outpatient on 08/07/2016, but patient refused, but later on, after the patient c vinay in with chest pain, underwent cardiac catheterization that revealed nonobstructive coronary arter y disease yesterday. Denies any chest pain, shortness of breath, any palpitation. History of chroni c obstructive pulmonary disease. PHYSICAL EXAMINATION: VITAL SIGNS: Temperature afebrile, heart rate 64, blood pressure 147/71. HEENT: PERRLA. Extraocular muscles intact. NECK: Supple. No carotid bruit or thyromegaly. CHEST: Clear to auscultation. HEART: S1, S2 regular. ABDOMEN: Soft. EXTREMITIES: Clubbing and cyanosis negative. BLOOD WORKUP: As follows: WBC ____, hemoglobin ____, hematocrit 35.9, platelet count 295. Chemistr y shows sodium 142, potassium 3.2, chloride ____ anion gap of 12, BUN 15, creatinine 0.5, random suga r 115. IMPRESSION: Status post cardiac catheterization yesterday, nonobstructive coronary artery disease, l imited to small vessel disease, patent stent in circumflex placed in 2013, history of recently non-ST -segment myocardial infarction. In May, the patient admitted with infected hernia complicated by bleed and drop in hemoglobin. Recent catheterization yesterday shows nonobstructive coronary artery disease, no evidence of acute coronary syndrome this time, diabetes, hypertension, hyperlipidemia, c hronic obstructive pulmonary disease, anxiety disorder. RECOMMENDATION: ____ continue baby aspirin. We will discontinue Plavix because of history of recent bleed ____ the patient can tolerate. We will continue Plavix, supplement potassium. Continue ator vastatin. Continue Lasix. Will discontinue telemetry. Continue ____, continue beta ajay. We wi ll follow with you. Since the patient's stent is patent, it is more than 3 years, history of a bleed recently with hernia , we discontinue Plavix, continue baby aspirin. We will ____ . Will follow with you. ____ cardiac cath site in right femoral area looks okay, no hematoma noted. H and H remains stable. Distal pulses 2+. Thank you, Dr. Aguila, for providing the opportunity in taking care of the patient. Will repeat the blood workup, supplement potassium and repeat the blood workup in the morning. Princess Mariano MD cc: [phone] TT: 08/11/2016 12:27:29 Confirmation # [id number] Dictation # [id number] chana 08/11/2016 12:42:03
[2016-08-11] MEDS: POLYETHYLENE GLYCOL 3350 17 GM/Dose PACKET PO SCH (21:58)
[2016-08-12] MEDS: Levalbuterol 0.63 MG/3 ML Inhal Soln UD IH SCH ×4 (01:02→20:27)
[2016-08-12] MEDS: Pantoprazole 40 mg EC Tab PO SCH (06:17)
[2016-08-12 07:28] LABS: ADD MANUAL DIFF? NO
[2016-08-12 07:33] LABS: GRAN # 7.14 (1.4-6.5); GRAN % 72.4 % (50.0-68.0); HEMATOCRIT 38.7 % (36.0-48.0); LYMPH % 20.1 % (22.0-35.0); MEAN CELL VOLUME 95.1 fL (80.0-105.0); MEAN CORPUSCULAR HEMOGLOBIN 30.2 pg (25.0-35.0); MEAN CORPUSCULAR HGB CONC 31.8 g/dl (31.0-37.0); MEAN PLATELET VOLUME 10.9 fl (7.0-11.0); MONO # 0.7 (0.1-0.6); MONO % 7.5 % (1.0-6.0); PLATELET COUNT 317 10^3/uL (120.0-450.0); RED CELL DISTRIBUTION WIDTH 16.2 % (11.5-14.5); WHITE BLOOD COUNT 9.9 10^3/ul (4.5-11.0)
[2016-08-12 08:03] LABS: BLOOD UREA NITROGEN 18 mg/dL (7-21); CARBON DIOXIDE 31 mmol/L (21-33); CHLORIDE 97 mmol/L (98-107); GFR AFRICAN-AMERICAN > 60; GLUCOSE,RANDOM 117 mg/dL (70-110); POTASSIUM 3.9 mmol/L (3.6-5.0); SODIUM 139 mmol/L (132-148)
--- NOTE | 2016-08-12 09:07 | PN ---
DATE: 08/12/2016 PULMONARY NOTE SUBJECTIVE: The patient appears comfortable this morning. She is not short of breath at rest. PHYSICAL EXAMINATION: VITAL SIGNS: (Last noted in the computer): Temperature is 97.8, pulse 74, respirations 18/20, blood pressure 138/78. Oxygen saturation on nasal cannula is 98%. HEENT: Normocephalic, atraumatic. No JVD. CARDIOVASCULAR: Positive S1, S2. No S3. LUNGS: Improved breath sounds at the bases. Less rhonchi. No wheezing this morning. EXTREMITIES: Mild edema. No cyanosis, no clubbing. Calves are nontender to palpation. GASTROINTESTINAL: Abdomen is soft, nontender, nondistended. Bowel sounds are positive. SKIN: No acute rash. NEUROLOGIC: Limited at the present time. IMPRESSION: 1. Acute bronchitis. 2. Advanced chronic obstructive pulmonary disease. 3. Coronary artery disease. 4. Diabetes mellitus. 5. Anemia. PLAN: The patient appears comfortable this morning. She is not short of breath at rest. She states she is feeling much better overall. On physical exam, her bronchospasm is now resolving. In addition, there is no significant alveolar arterial gradient. Oxygen saturation on nasal cannula is now 98%. I will continue with the current nebulizer treatments and decrease the intravenous steroids this morning. Cardiology evaluation with Dr. Mariano is noted. Clinical status of the patient is significantly improved - compared to the initial presentation. However, again, the overall status/prognosis of this patient remains guarded. I will discuss the above with Dr. Aguila. Kris Goode MD cc: [phone] TT: 08/12/2016 09:06:26 Confirmation # [id number] Dictation # [id number] jn FRIDA
[2016-08-12] MEDS: Levothyroxine 112 MCG TAB PO SCH (09:31)
[2016-08-12] MEDS: Metoprolol Succinate 25 mg XL Tab PO SCH (09:31)
[2016-08-12] MEDS: MethylPREDNISolone 40 mg Vial IVP SCH ×2 (09:31→22:35)
[2016-08-12] MEDS: Potassium Chloride 20 mEq ER Tab PO SCH (09:32)
[2016-08-12] MEDS: Oxycodone/Acetaminophen 5/325 mg Tab PO PRN ×2 (14:28→22:32)
--- NOTE | 2016-08-12 20:50 | PN ---
DATE: 08/12/2016 The patient is a 66-year-old, seen and examined sitting in chair. Comfortable. audible wheezin g. VITAL SIGNS: She is afebrile, pulse 86, respirations 22, blood pressure 142/60. LUNGS: Bilateral few expiratory rhonchi. HEART: S1, S2 audible. No murmur. ABDOMEN: Soft, nontender, no rebound, no guarding. NEUROLOGICALLY: She is awake and alert, communicative. LABORATORY EXAMINATION: WBC is 9.9, hemoglobin 12.3, hematocrit 38.7, platelet of . Chemistry: Sodium 139, potassium 3.9, chloride 97, CO2 of 31, BUN 18, creatinine 0.5. Blood sugar of 17. Uri ne analysis is unremarkable. ASSESSMENT: 1. Chronic obstructive pulmonary disease exacerbation. 2. Hypertension. 3. Coronary artery disease, status post cardiac catheterization, and had nonocclusive coronary artery disease. 4. Hyperlipidemia. 5. O2 dependent chronic obstructive pulmonary disease. 6. Status post infected ventral hernia mesh removal. PLAN: Currently the patient is on IV steroids. She is on nebulizer treatment. Potassium is being s upplemented. She is on laxative. She is on statin. She is on Solu-Medrol 20 q. 12. She is on an a nalgesic as needed. Stool for C. diff was sent. She complained of diarrhea earlier; that seems to b e negative. Will continue current above mentioned treatment. Follow up the patient in a.m. Lori Aguila MD cc: [phone] TT: 08/12/2016 20:49:23 Confirmation # [id number] Dictation # [id number] rocio
--- NOTE | 2016-08-12 21:55 | PN ---
DATE: 08/12/2016 The patient is in room 570, bed 2. REASON FOR CONSULTATION: Coronary artery disease, chest pain. Cardiac catheterization, nonobstructi ve coronary artery disease. HISTORY OF PRESENT ILLNESS: A 66-year-old female with past medical history significant for COPD, hyp ertension, hyperlipidemia, coronary artery disease, status post angioplasty, stent insertion in the c ircumflex on 05/30/2013. Recently, the patient was admitted after hernia surgery complicated by infe cted mesh, non-ST segment elevation myocardial infarction. The patient was scheduled for a stress te st as outpatient on 08/07/2016, but the patient refused but later on the patient was admitted to the hospital with chest pain and underwent cardiac catheterization that revealed nonobstructive coronary artery disease. Catheterization was done on 08/10/2016. The patient still complains of shortness of breath. Denies any palpitation. Denies chest pain. The patient is sitting in chair comfortably. PHYSICAL EXAMINATION: VITAL SIGNS: Blood pressure 142/60, earlier blood pressure was 133/60, respirations 22, pulse 86, te mperature 98. HEAD: Normocephalic. EYES: Pupils normal. Conjunctivae normal. NOSE AND THROAT: Normal. NECK: JVP low. Carotids equal. THORAX: AP diameter normal. LUNGS: Bilateral wheezing. CARDIOVASCULAR: S1, S2. ABDOMEN: Bowel sounds normal. EXTREMITIES: No clubbing, no cyanosis. LABORATORY DATA: WBC 9.9, hemoglobin 12.3, hematocrit 38.7, platelets 317. Sodium 133, potassium 3. 9, BUN 18, creatinine 0.5, random glucose 117, calcium 9.0. Total protein 6.5, albumin 3.4. DIAGNOSES: Status post cardiac catheterization on 08/10/2016, nonobstructive coronary artery disease limited to small vessel disease, patent stent in circumflex placed on 05/30/2013, history of recent non-ST segment elevation myocardial infarction. In May, the patient was admitted with infected h ernia complicated by bleeding and drop in hemoglobin, diabetes, hypertension, hyperlipidemia, chronic obstructive pulmonary disease, anxiety disorder. PLAN: Continue aspirin 81 mg daily, potassium 20 mEq p.o. daily, furosemide 40 p.o. daily, Lipitor 1 0 mg daily, Protonix 40 daily, methylprednisolone 20 mg IV q.12 hours, levothyroxine 112 mcg p.o. rosenda ly, metoprolol succinate 25 mg p.o. daily, Xopenex hand nebulizer therapy, lisinopril 5 mg daily. Th e patient's Plavix has been stopped because stent insertion was almost 3 years ago and the patient al so had a complication of surgery with bleeding in the abdomen, so Plavix has been stopped and aspirin will be continued. Will follow with you. Princess Cool MD cc: [phone] TT: 08/12/2016 21:13:14 Confirmation # [id number] Dictation # [id number] sc 08/12/2016 20:54:37
[2016-08-12] MEDS: POLYETHYLENE GLYCOL 3350 17 GM/Dose PACKET PO SCH (22:35)
[2016-08-13] MEDS: Levalbuterol 0.63 MG/3 ML Inhal Soln UD IH SCH ×4 (01:29→20:31)
[2016-08-13] MEDS: Pantoprazole 40 mg EC Tab PO SCH (05:39)
[2016-08-13 08:51] VITALS: TEMP 97.9
[2016-08-13] MEDS: MethylPREDNISolone 40 mg Vial IVP SCH ×2 (09:09→21:28)
[2016-08-13] MEDS: Metoprolol Succinate 25 mg XL Tab PO SCH (09:09)
[2016-08-13] MEDS: Potassium Chloride 20 mEq ER Tab PO SCH (09:10)
[2016-08-13] MEDS: Levothyroxine 112 MCG TAB PO SCH (09:10)
--- NOTE | 2016-08-13 09:35 | PN ---
DATE: 08/13/2016 PULMONARY NOTE SUBJECTIVE: The patient appears comfortable at rest. She is not short of breath. PHYSICAL EXAMINATION: VITAL SIGNS: Temperature is 98.0, pulse 86, respirations 20, blood pressure 142 /60. Oxygen saturation on nasal cannula is 98%. HEENT: Normocephalic, atraumatic. No JVD. CARDIOVASCULAR: Positive S1, S2. No S3. LUNGS: Minimal rhonchi. Minimal expiratory wheezing. EXTREMITIES: Mild edema. No cyanosis, no clubbing. Calves are nontender to palpation. GASTROINTESTINAL: Abdomen is soft, nontender, nondistended. Bowel sounds are positive. SKIN: No acute rash. NEUROLOGIC: Limited at the present time. IMPRESSION: 1. Acute bronchitis. 2. Advanced chronic obstructive pulmonary disease. 3. Coronary artery disease. 4. Diabetes mellitus. 5. Anemia. PLAN: The patient appears very comfortable this morning. She is not short of breath at rest. She states she is feeling much better overall. On physical exam, minimal bronchospasm remains. However, there is no significant alveolar arterial gradient. I will continue with the current nebulizer treatments and low-dose intravenous steroids (decreased yesterday) for now. Cardiology evaluation is ongoing. Inputs are noted. Clinical status of the patient is certainly improved - compared to the initial presentation. However, again, the overall status/prognosis of this patient does remain very guarded. I will discuss the above with the attending physician. Kris Goode MD cc: [phone] TT: 08/13/2016 09:33:59 Confirmation # [id number] Dictation # [id number] jn FRIDA
[2016-08-13] MEDS: Oxycodone/Acetaminophen 5/325 mg Tab PO PRN (12:18)
--- NOTE | 2016-08-13 13:56 | PN ---
DATE: 08/13/2016 SUBJECTIVE: The patient is a 66-year-old, seen and examined, doing well, eating and tolerating. Com plained of cough and congestion. Still has audible wheezing. PHYSICAL EXAMINATION: VITAL SIGNS: She is afebrile, pulse 84, respirations 22, blood pressure 156/60. LUNGS: Bilateral expiratory rhonchi, more so on the right mid lung region. HEART: S1, S2 audible. ABDOMEN: Soft, nontender, no rebound, no guarding. NEUROLOGIC: The patient is awake and alert, communicative, able to ambulate. LABORATORY: There is no new lab available today. Stool for C. diff is negative. ASSESSMENT: 1. Chronic obstructive pulmonary disease exacerbation. 2. Congestive heart failure exacerbation. 3. Chest pain, status post cardiac catheterization, nonocclusive coronary artery disease and was adv ised to have maximum medical treatment. 4. Steroid-dependent chronic obstructive pulmonary disease. 5. Status post angioplasty. PLAN: We will continue patient on current medication. I will add chest PT. Continue her IV steroid s. Continue nebulizer treatment. We will reevaluate the patient in a.m. and if she is stable, she w ill be discharged home in a.m. Lori Aguila MD cc: [phone] TT: 08/13/2016 13:56:20 Confirmation # [id number] Dictation # [id number] tn
--- NOTE | 2016-08-13 20:27 | PN ---
DATE: 08/13/2016 The patient is in room 570, bed 2. REASON FOR CONSULTATION: Coronary artery disease, chest pain, cardiac catheterization, nonobstructiv e coronary artery disease. HISTORY OF PRESENT ILLNESS: This is a 66-year-old female with past medical history significant for C OPD, hypertension, hyperlipidemia, coronary artery disease, status post angioplasty stent insertion i n the circumflex on 05/30/2013. The patient was admitted after a hernia surgery complicated by infecte d mesh, non-ST segment elevation myocardial infarction. The patient was scheduled for a stress test, but she refused. The patient was admitted to the hospital with chest pain and underwent cardiac cat heterization that revealed nonobstructive coronary artery disease on 08/10/2016. The patient is still complaining of shortness of breath, but she says better than yesterday. Denies chest pain or palpit ation. The patient is sitting in chair at present. PHYSICAL EXAMINATION: VITAL SIGNS: Blood pressure 150/62, respirations 22, pulse 84, temperature 97.9. HEAD: Normocephalic. EYES: Pupils normal. Conjunctivae normal. NOSE AND THROAT: Normal. NECK: JVP low. Carotid equal. THORAX: AP diameter normal. LUNGS: Few wheezing sounds. CARDIOVASCULAR: S1, S2. ABDOMEN: Soft. Bowel sounds normal. EXTREMITIES: No clubbing, no cyanosis. LABORATORY DATA: WBC 9.9, hemoglobin 12.3, hematocrit 38.7, platelet 317. Sodium 139, potassium 3.9 , BUN 18, creatinine 0.5, random glucose 117, calcium 9.0. DIAGNOSES: Status post cardiac catheterization on 08/10/2016, nonobstructive coronary artery disease, limited small vessel disease, patent stent in circumflex, which was placed on 05/30/2013, history of r ecent non-ST segment elevation myocardial infarction, 06/12/2016 the patient was admitted with infecte d hernia complicated by bleeding and drop in hemoglobin, diabetes, hypertension, hyperlipidemia, hub lead anne-marie obstructive pulmonary disease, anxiety disorder. PLAN: To continue aspirin 81 mg p.o. daily, potassium 20 mEq p.o. daily, furosemide 40 mg p.o. daily and Lipitor 10 mg p.o. daily, Protonix 40 mg p.o. daily, methylprednisone 20 mg IV q. 12 hours, Syn throid 112 mcg p.o. daily, metoprolol succinate 25 mg p.o. daily, lisinopril 5 mg p.o. daily, Xopenex p.r.n. and nebulizer therapy. The patient's Plavix has been stopped because patient's circumflex st ent insertion was almost 3 years ago and the patient had complication of surgery with bleeding, so Pl avix has been discontinued. We will follow with you. Princess Cool MD cc: [phone] TT: 08/13/2016 20:27:21 Confirmation # [id number] Dictation # [id number] jn
[2016-08-13] MEDS: POLYETHYLENE GLYCOL 3350 17 GM/Dose PACKET PO SCH (21:29)
[2016-08-14] MEDS: Levalbuterol 0.63 MG/3 ML Inhal Soln UD IH SCH ×2 (01:15→07:15)
[2016-08-14] MEDS: Pantoprazole 40 mg EC Tab PO SCH (05:58)
[2016-08-14 07:50] VITALS: PULSE 80; RESP 20; O2SAT 96
[2016-08-14] MEDS: Levothyroxine 112 MCG TAB PO SCH (08:45)
[2016-08-14] MEDS: Potassium Chloride 20 mEq ER Tab PO SCH (09:39)
[2016-08-14] MEDS: Metoprolol Succinate 25 mg XL Tab PO SCH (09:39)
[2016-08-14 09:41] VITALS: BP 140/80
--- NOTE | 2016-08-14 09:57 | PN ---
DATE: 08/14/2016 SUBJECTIVE: The patient appears very comfortable this morning. She is not short of breath at rest. OBJECTIVE: VITAL SIGNS: Temperature is 97.9, pulse 88, respirations 18, blood pressure 132 /59. Oxygen saturation on nasal cannula is 97%. HEENT: Normocephalic, atraumatic. No JVD. CARDIOVASCULAR: Positive S1, S2. No S3. LUNGS: Very minimal/less rhonchi. No wheezing. EXTREMITIES: Mild edema. No cyanosis, no clubbing. Calves are nontender to palpation. GASTROINTESTINAL: Abdomen is soft, nontender, nondistended. Bowel sounds are positive. SKIN: No acute rash. NEUROLOGIC: Limited at the present time. IMPRESSION: 1. Acute bronchitis. 2. Advanced chronic obstructive pulmonary disease. 3. Coronary artery disease. 4. Diabetes mellitus. 5. Anemia. PLAN: The patient appears very comfortable this morning. She is not short of breath at rest. She states she is feeling much better overall. On physical exam, her bronchospasm is resolving. In addition, there is no significant alveolar arterial gradient. I will continue with the current nebulizer treatments and change to oral steroids this morning. Cardiology evaluation is ongoing and noted. Clinical status of the patient is significantly improved - - compared to the initial presentation. However, again, the overall status/ prognosis of this chronically ill female with advanced COPD-- remains guarded. I will discuss the above with the attending physician. Kris Goode MD cc: [phone] TT: 08/14/2016 09:56:41 Confirmation # [id number] Dictation # [id number] rodrigo MTDD
--- NOTE | 2016-08-14 10:44 | CP.PCM.PCO ---
Physician Communication Note - Physician Communication Note Physician Communication Note: Ernie: [employer]
--- NOTE | 2016-08-14 10:45 | PN ---
DATE: 08/14/2016 REASON FOR CONSULTATION AND FOLLOWUP: Coronary artery disease, status post cardiac catheterization, nonobstructive coronary artery disease. BRIEF CLINICAL HISTORY: A 66-year-old female with a past medical history significant for coronary ar jeremias disease, hypertension, hyperlipidemia, history of PTCA on 05/30/2013, admitted with hernia surgery complicated with [id number] myocardial infarction. The patient admitted with chest pain, headac he and acute exacerbation of COPD, underwent cardiac catheterization, nonobstructive coronary artery disease, patent stent. PHYSICAL EXAMINATION: VITAL SIGNS: Temperature afebrile, heart rate 80, blood pressure 132/59. HEENT: PERRLA. Extraocular muscles intact. NECK: Supple. No carotid bruits. No thyromegaly. CHEST: Clear to auscultation. HEART: S1, S2 regular. ABDOMEN: Soft. EXTREMITIES: Clubbing and cyanosis negative. LABORATORY DATA: Blood workup as follows: WBC 9.9, hemoglobin 12.3, hematocrit 38.7, platelet count 317. Chemistry shows sodium 130, potassium 3.9, chloride 97, carbon dioxide 31, anion gap of 15, BU N 18, creatinine 0.9. IMPRESSION: Unstable angina, hypertension, hyperlipidemia, diabetes, coronary artery disease, status post a stent in the past in the circumflex system with repeat catheterization on 08/10/____ and garcia nt stent, patency in circumflex placed on 05/30/2013, history of boi-[id number] myocardial infarction p erioperative while the patient was having hernia surgery. RECOMMENDATION: Discontinue Plavix because it is more than 3 years. Continue baby aspirin. Continu e gentle diuretics. Continue atorvastatin. Continue levothyroxine, continue ____, continue metoprol ol. Continue lisinopril, continue prednisone as per pulmonary for COPD. Cardiology point of view, p atient is stable. Once stable from pulmonary, patient can be discharged home. No further cardiac wo rkup is planned. Thank you, Dr. Aguila, for providing us the opportunity in taking care of the patient. Princess Mariano MD cc: [phone] TT: 08/14/2016 10:44:59 Confirmation # [id number] Dictation # [id number] tn
--- NOTE | 2016-08-14 14:42 | DS ---
The patient is a 66-year-old, seen and examined, who came in with shortness of breath and chest tight ness. She was found to be in exacerbation of COPD, has been on IV steroids and antibiotic, nebulizer treatment. Complained of chest pain and she had non-ST elevation myocardial infarction on previous admission, so she was taken to cardiac cath tech. She was found to have nonocclusive coronaries. Being disch arged today. PHYSICAL EXAMINATION: GENERAL: She is awake and alert, communicative. VITAL SIGNS: She is afebrile, pulse 80, respirations 20, blood pressure 140/80. LUNGS: Bilateral few expiratory rhonchi. HEART: S1, S2 audible. ABDOMEN: Soft, nontender, no rebound, no guarding. NEUROLOGIC: The patient is awake and alert, communicative. Moves all extremities. PLAN: I will discharge the patient home on aspirin 81 daily. She is on Lasix 40 and potassium 20 mE q. She is on Lipitor 10 mg daily. She takes MiraLax and she is on Protonix 40 mg daily. She will c ontinue her on Synthroid, Toprol-XL 25 daily. She is on Xopenex, that she will continue. Also she w ill be maintained on lisinopril. She is also given Prednisone 20 mg daily for 5 more days, then she will go on her maintenance prednisone that is 5 mg twice a day. Lori Aguila MD cc: [phone] TT: 08/14/2016 14:42:02 jn
== END 2016-08-14 13:06 | disposition home or self-care (01) | DRG 191 ==
LOC: ED 10:10 → ERH 14:09 → CCU 21:15 → 2RNO 08-10 14:16 → 5RSO 08-11 15:36
PROVIDERS: ADMIT Internal Medicine; ATTEND Internal Medicine
PROC: 3E0F7GC Introduction of Other Therapeutic Substance into Respiratory Tract, Via Natural or Artificial Opening (ICD-10-PCS; 2016-08-08)
PROC: 4A023N7 Measurement of Cardiac Sampling and Pressure, Left Heart, Percutaneous Approach (ICD-10-PCS; principal; 2016-08-10)
PROC: B211YZZ Fluoroscopy of Multiple Coronary Arteries using Other Contrast (ICD-10-PCS; 2016-08-10)
PROC: B215YZZ Fluoroscopy of Left Heart using Other Contrast (ICD-10-PCS; 2016-08-10)
DX: J44.1 Chronic obstructive pulmonary disease with (acute) exacerbation (principal); I25.110 Atherosclerotic heart disease of native coronary artery with unstable angina pectoris; I27.2 Other secondary pulmonary hypertension; Z99.81 Dependence on supplemental oxygen; I50.9 Heart failure, unspecified; I11.0 Hypertensive heart disease with heart failure; D64.9 Anemia, unspecified; E11.9 Type 2 diabetes mellitus without complications; E78.5 Hyperlipidemia, unspecified; J44.0 Chronic obstructive pulmonary disease with (acute) lower respiratory infection; J20.9 Acute bronchitis, unspecified; K21.9 Gastro-esophageal reflux disease without esophagitis; G47.33 Obstructive sleep apnea (adult) (pediatric); R29.6 Repeated falls; R26.2 Difficulty in walking, not elsewhere classified; J45.909 Unspecified asthma, uncomplicated; F41.9 Anxiety disorder, unspecified; E03.9 Hypothyroidism, unspecified; K44.9 Diaphragmatic hernia without obstruction or gangrene; Z79.52 Long term (current) use of systemic steroids; I25.2 Old myocardial infarction; Z86.73 Personal history of transient ischemic attack (TIA), and cerebral infarction without residual deficits; Z86.718 Personal history of other venous thrombosis and embolism; Z95.5 Presence of coronary angioplasty implant and graft; Z87.440 Personal history of urinary (tract) infections; Z79.02 Long term (current) use of antithrombotics/antiplatelets; Z79.82 Long term (current) use of aspirin; Z87.891 Personal history of nicotine dependence; Z90.49 Acquired absence of other specified parts of digestive tract; Z82.5 Family history of asthma and other chronic lower respiratory diseases

== ENCOUNTER 2016-11-11 02:15 | Observation (INO) | payer MEDICARE, OTHER ==
[2016-11-11 02:29] VITALS: BMI 25.7
--- NOTE | 2016-11-11 02:29 | ED PDOC ---
Arrival/HPI - General Time Seen by Provider: 11/11/16 02:16 Historian: Patient - History of Present Illness Narrative History of Present Illness (Text): 11/11/16 02:26 Kellie Greer is a 66 year old female, with a history of COPD, CAD s/p angioplasty, and degenerative disk disease, presents to the emergency department complaining of 1 day duration of abdominal pain associated with vomiting and diarrhea. Patient reports she had SBO in the past which was surgically repaired. Denies any fever, chills, headache, chest pain, shortness of breath, urinary symptoms, or any other complaints at this time. Time/Duration: < week (1 day ) Symptom Onset: Gradual Severity Level: Mild Context: Home Past Medical History - Provider Review Nursing Documentation Reviewed: Yes - Infectious Disease Hx of Infectious Diseases: None - Tetanus Immunization Tetanus Immunization: Unknown - Cardiac Hx Cardiac Disorders: Yes (MT 06/09/13, DVT s/p filter) Hx Hypertension: Yes - Pulmonary Hx Chronic Obstructive Pulmonary Disease (COPD): Yes (O2 @ Home) - Neurological HX Cerebrovascular Accident: Yes - HEENT Hx HEENT Disorder: No Hx Cataracts: (Unknown) Hx Deafness: Yes ([place]) Hx Difficulty Chewing: No Hx Glaucoma: Yes - Renal Hx Renal Disorder: No Hx Dialysis: No - Endocrine/Metabolic Hx Diabetes Mellitus Type 2: Yes Hx Hypothyroidism: Yes - Hematological/Oncological Hx Blood Transfusions: Yes Hx Blood Transfusion Reaction: No - Integumentary Hx Dermatological Disorder: No Other/Comment: bilateral arms eccymotic areas - Musculoskeletal/Rheumatological Hx Falls: Yes - Gastrointestinal Hx Gastrointestinal Disorders: Yes (hiatal hernia, umbilical hernia) Hx Diverticulitis: Yes (and diverticulosis) Hx Gastroesophageal Reflux: Yes Hx Liver Failure: No Hx Pancreatitis: Yes HX Swallowing Problems: No - Genitourinary/Gynecological Hx Genitourinary Disorders: Yes Hx Incontinence: Yes - Psychiatric Hx Substance Use: No - Surgical History Hx Cholecystectomy: Yes Hx Coronary Stent: Yes (06/09/13) Other/Comment: Hernia Surgery-15 June 2016 - Anesthesia Hx Anesthesia Reactions: No Hx Malignant Hyperthermia: No - Suicidal Assessment Feels Threatened In Home Enviroment: No Family/Social History - Physician Review Nursing Documentation Reviewed: Yes Family/Social History: No Known Family HX Smoking Status: Former Smoker Hx Alcohol Use: No Hx Substance Use: No Hx Substance Use Treatment: No Allergies/Home Meds Allergies/Adverse Reactions: Allergies amoxicillin [From Augmentin] Allergy (Verified 11/11/16 02:18) RASH ciprofloxacin [From Cipro] Allergy (Verified 11/11/16 02:18) RASH ciprofloxacin HCl [From Cipro] Allergy (Verified 06/16/16 08:21) RASH clavulanic acid [From Augmentin] Allergy (Verified 11/11/16 02:18) RASH iodine Allergy (Verified 11/11/16 02:18) RASH linezolid [From Zyvox] Allergy (Verified 11/11/16 02:18) REDNESS Sulfa (Sulfonamide Antibiotics) Allergy (Verified 11/11/16 02:18) RASH tiotropium bromide [From Spiriva with HandiHaler] Allergy (Verified 11/11/16 02: 18) RASH seafood Allergy (Uncoded 11/11/16 02:18) RASH Home Medications: Home Meds Medication Instructions Recorded Confirmed Alprazolam [Xanax] 0.5 mg PO BID 11/11/16 11/11/16 Aspirin [Adult Low Dose Aspirin EC] 81 mg PO DAILY 11/11/16 11/11/16 Budesonide/Formoterol Fumarate 2 puff IH DAILY 11/11/16 11/11/16 [Symbicort] Cetirizine HCl [Zyrtec Allergy] 10 mg PO DAILY 11/11/16 11/11/16 Diclofenac Sodium [Voltaren] 1 appl TP TID 11/11/16 11/11/16 Ergocalciferol (Vitamin D2) 50,000 unit PO QWK 11/11/16 11/11/16 [Vitamin D2] Hydrocodone/Acetaminophen [[place] 1 each PO TID 11/11/16 11/11/16 10-325 Tablet] Levalbuterol [Xopenex] 0.63 mg IH Q6H 11/11/16 11/11/16 Levothyroxine [Synthroid] 137 mcg PO DAILY 11/11/16 11/11/16 Lisinopril [Zestril] 5 mg PO DAILY 11/11/16 11/11/16 Metoprolol Succinate 25 mg PO DAILY 11/11/16 11/11/16 Pantoprazole [Protonix] 40 mg PO DAILY 11/11/16 11/11/16 Polyethylene Glycol 3350 [Miralax] 17 gm PO HS 11/11/16 11/11/16 Potassium Chloride [K-Dur 20] 20 meq PO DAILY 11/11/16 11/11/16 Simvastatin [Zocor] 20 mg PO DAILY 11/11/16 11/11/16 Review of Systems - Physician Review All systems were reviewed & negative as marked: Yes - Review of Systems Constitutional: Normal. absent: Fatigue, Fevers Respiratory: Normal. absent: Cough, Sputum Cardiovascular: Normal, Palpitations. absent: Chest Pain Gastrointestinal: Abdominal Pain, Diarrhea, Nausea, Vomiting Genitourinary Female: Normal Neurological: Normal Psychiatric: Normal Physical Exam Vital Signs Reviewed: Yes Vital Signs Temp Pulse Resp BP Pulse Ox 11/11/16 04:53 84 18 112/59 L 99 11/11/16 02:30 98.2 F 109 H 20 113/74 98 Temperature: Afebrile Blood Pressure: Normal Pulse: Regular Respiratory Rate: Normal Appearance: Positive for: Well-Appearing, Non-Toxic, Comfortable Pain Distress: None Mental Status: Positive for: Alert and Oriented X 3 - Systems Exam Head: Present: Atraumatic, Normocephalic Pupils: Present: PERRL Conjunctiva: Present: Normal Mouth: Present: Moist Mucous Membranes Respiratory/Chest: Present: Clear to Auscultation, Good Air Exchange. No: Respiratory Distress, Accessory Muscle Use Cardiovascular: Present: Regular Rate and Rhythm, Normal S1, S2. No: Murmurs Abdomen: Present: Normal Bowel Sounds. No: Tenderness, Distention, Peritoneal Signs Upper Extremity: Present: Normal Inspection. No: Cyanosis, Edema Lower Extremity: Present: Normal Inspection. No: Edema Neurological: Present: GCS=15, CN II-XII Intact, Speech Normal, Motor Func Grossly Intact, Normal Sensory Function Skin: Present: Warm, Dry, Normal Color. No: Rashes Psychiatric: Present: Alert, Oriented x 3, Normal Insight, Normal Concentration Medical Decision Making ED Course and Treatment: 11/11/16 02:31 Impression: A 66 year old female who presents to the emergency department complaining of abdominal pain associated with vomiting and diarrhea. Plan: -- CT abdomen pelvis -- EKG -- Labs, cardiac enzymes -- Dilaudid -- IV fluids -- Blood culture -- Urinalysis -- Reassess and disposition Progress Notes: 11/11/16 03:02 EKG reviewed: Sinus rhythm @ 90 bpm with occasional premature ventricular complexes. Possible left atrial enlargement. Right bundle branch block. Left anterior fascicular block. Left ventricular hypertrophy. Bifascicular block. 11/11/16 04:05 CT abdomen pelvis reviewed: FINDINGS: Lower thorax: No acute findings. ABDOMEN: Liver: No acute findings. Gallbladder and bile ducts: Cholecystectomy. There is biliary distention. No ductal dilation. Pancreas: No acute findings. No ductal dilation. Spleen: No acute findings. No splenomegaly. Adrenals: No acute findings. No mass. Kidneys and ureters: No acute findings. No obstructing stones. No hydronephrosis. Stomach and bowel: There is fluid throughout the small bowel. There is liquid stool in portions of the colon. Appendix: No findings to suggest acute appendicitis. PELVIS: Bladder: No acute findings. No stones. Reproductive: No acute findings. ABDOMEN and PELVIS: Intraperitoneal space: No acute findings. No free air. No significant fluid collection. Bones/joints: No acute fracture. No dislocation. Soft tissues: No acute findings. Vasculature: No acute findings. No abdominal aortic aneurysm. Lymph nodes: No acute findings. No enlarged lymph nodes. IMPRESSION: There is fluid throughout the small bowel. There is liquid stool in portions of the colon. Findings may represent a degree of diarrhea/enterocolitis. No bowel obstruction. 11/11/16 04:34 Case discussed with who is aware and agrees with the plan to observe patient at med/surg. Accepts patient under her service with and on consult. - Lab Interpretations Lab Results: 11/11/16 02:45 11/11/16 02:45 Lab Results 11/11/16 03:37: Urine Color Yellow, Urine Appearance Sl cloudy, Urine pH 5.5, Ur Specific [place] 1.025, Urine Protein Trace H, Urine Glucose (UA) Negative, Urine Ketones Trace H, Urine Blood Negative, Urine Nitrate Negative, Urine Bilirubin Negative, Urine Urobilinogen 0.2, Ur Leukocyte Esterase Negative, Urine RBC 0 - 2, Urine WBC Negative, Ur Epithelial Cells 4 - 5, Urine Bacteria Many, Hyaline Casts 0 - 2, Urine Other Mucus 11/11/16 02:45: Sodium 140, Potassium 3.8, Chloride 100, Carbon Dioxide 28, Anion Gap 16, BUN 22 H, Creatinine 0.5, Est GFR ( Amer) > 60, Est GFR ( Non-Af Amer) > 60, Random Glucose 105, Calcium 9.6, Total Bilirubin 0.6, AST 27 , ALT 25, Alkaline Phosphatase 82, Lactate Dehydrogenase 508, Total Creatine Kinase 55, Troponin I < 0.01 D, Total Protein 7.5, Albumin 4.5, Globulin 2.9, Albumin/Globulin Ratio 1.6, Amylase 94, Lipase 116 11/11/16 02:45: PT 10.2, INR 0.94, APTT 25.4 11/11/16 02:45: WBC 12.4 H D, RBC 4.70, Hgb 14.4, Hct 43.3, MCV 92.1, MCH 30.6, MCHC 33.3, RDW 13.5, Plt Count 246, MPV 10.5, Gran % 73.4 H, Lymph % (Auto) 17.3 L, [place] % (Auto) 8.6 H, Eos % (Auto) 0.6 L, Baso % (Auto) 0.1, Gran # 9.13 H, Lymph # 2.2, [place] # 1.1 H, Eos # 0.1, Baso # 0.01 I have reviewed the lab results: Yes - RAD Interpretation Radiology Orders: 11/11/16 02:32 ABD & PELVIS W/O PO OR IV CONT [CT] Stat Mechanic Recovery: Radiologist - Medication Orders Current Medication Orders: Discontinued Medications Acetaminophen (Tylenol 325mg Tab) 650 mg PO Q4H PRN PRN Reason: Fever >100.5 F Albuterol/Ipratropium (Duoneb 3 Mg/0.5 Mg (3 Ml) Ud) 3 ml IH Q4H PRN PRN Reason: Shortness of Breath Last Admin: 11/11/16 08:05 Dose: 3 ml Alprazolam (Xanax) 0.5 mg PO BID SALLY PRN Reason: Protocol Last Admin: 11/11/16 12:03 Dose: 0.5 mg Aspirin (Ecotrin) 81 mg PO DAILY [facility] Last Admin: 11/11/16 12:03 Dose: 81 mg Hydromorphone HCl (Dilaudid) 2 mg IVP STAT STA Stop: 11/11/16 02:35 Last Admin: 11/11/16 02:52 Dose: 2 mg Re-Assess: MAR Pain Assessment Document 11/11/16 03:52 SS (Rec: 11/11/16 04:28 SS [id number]) Pain Reassessment Is this a pain reassessment? Yes Sleep Is patient sleeping during reassessment? Yes Sodium Chloride (Sodium Chloride 0.9%) 1,000 mls @ 100 mls/hr IV .Q10H STA Stop: 11/11/16 12:31 Last Admin: 11/11/16 02:45 Dose: 100 mls/hr Sodium Chloride (Sodium Chloride 0.9%) 1,000 mls @ 80 mls/hr IV .[id number] SALLY Last Admin: 11/11/16 02:56 Dose: 80 mls/hr Metronidazole (Flagyl) 500 mg in 100 mls @ 100 mls/hr IVPB STAT STA PRN Reason: Protocol Stop: 11/11/16 05:24 Last Admin: 11/11/16 04:50 Dose: 100 mls/hr Sodium Chloride (Sodium Chloride 0.9%) 1,000 mls @ 100 mls/hr IV .Q10H STA Stop: 11/11/16 14:27 Last Admin: 11/11/16 04:34 Dose: Iohexol (Omnipaque 240 (50 Ml)) Confirm Administered Dose 50 ml .ROUTE .STK-MED ONE Stop: 11/11/16 02:49 Last Admin: 11/11/16 04:34 Dose: Not Given Non-Admin Reason: Allergy Levalbuterol HCl (Xopenex) 0.63 mg IH Q6H [facility] Last Admin: 11/11/16 12:59 Dose: Not Given Non-Admin Reason: Patient Refused Lisinopril (Zestril) 5 mg PO DAILY [facility] Last Admin: 11/11/16 11:59 Dose: 5 mg Metoprolol Succinate (Toprol Xl) 25 mg PO DAILY SALLY Last Admin: 11/11/16 12:03 Dose: 25 mg Ondansetron HCl (Zofran Inj) 4 mg IVP STAT STA Stop: 11/11/16 02:33 Last Admin: 11/11/16 02:56 Dose: 4 mg Ondansetron HCl (Zofran Inj) 4 mg IVP Q6H PRN PRN Reason: Nausea/Vomiting Last Admin: 11/11/16 05:02 Dose: 4 mg Pantoprazole Sodium (Protonix Ec Tab) 40 mg PO DAILY [facility] Last Admin: 11/11/16 12:03 Dose: 40 mg Prednisone (Prednisone Tab) 5 mg PO DAILY [facility] Last Admin: 11/11/16 12:03 Dose: 5 mg - Scribe Statement The provider has reviewed the documentation as recorded by the Danny Pretty Provider Attestation: Provider Scribe Attestation: All medical record entries made by the Danny were at my direction and personally dictated by me. I have reviewed the chart and agree that the record accurately reflects my personal performance of the history, physical exam, medical decision making, and the department course for this patient. I have also personally directed, reviewed, and agree with the discharge instructions and disposition. Disposition/Present on Arrival - Present on Arrival Any Indicators Present on Arrival: No History of DVT/PE: Yes History of Uncontrolled Diabetes: No Urinary Catheter: No History Surgical Site Infection Followin - Disposition Have Diagnosis and Disposition been Completed?: Yes Diagnosis: Abdominal pain Disposition: HOSPITALIZED Disposition Time: 03:35 Condition: FAIR
[2016-11-11] MEDS ORDERED: Sodium Chloride 0.9% 1,000 ML IV STA ×2 (02:32→04:28)
[2016-11-11] MEDS ORDERED: HYDROmorphone 2 mg/ml ISec IVP STA (02:34)
[2016-11-11] MEDS ORDERED: Sodium Chloride 0.9% 1,000 ML IV SCH (02:45)
[2016-11-11] MEDS ORDERED: Iohexol 240 (50 ml) ONE (02:48)
[2016-11-11 02:54] LABS: ADD MANUAL DIFF? NO
[2016-11-11 03:09] LABS: BASO # 0.01 K/mm3 (0.0-2.0); BASO % 0.1 % (0.0-3.0); EOS # 0.1 (0.0-0.7); EOS % 0.6 % (1.5-5.0); GRAN # 9.13 (1.4-6.5); GRAN % 73.4 % (50.0-68.0); HEMATOCRIT 43.3 % (36.0-48.0); LYMPH # 2.2 (1.2-3.4); LYMPH % 17.3 % (22.0-35.0); MEAN CELL VOLUME 92.1 fL (80.0-105.0); MEAN CORPUSCULAR HEMOGLOBIN 30.6 pg (25.0-35.0); MEAN CORPUSCULAR HGB CONC 33.3 g/dl (31.0-37.0); MEAN PLATELET VOLUME 10.5 fl (7.0-11.0); MONO # 1.1 (0.1-0.6); MONO % 8.6 % (1.0-6.0); PLATELET COUNT 246 10^3/uL (120.0-450.0); RED CELL DISTRIBUTION WIDTH 13.5 % (11.5-14.5)
[2016-11-11 03:18] LABS: ALB/GLOB RATIO 1.6 (1.1-1.8); ALKALINE PHOSPHATASE 82 U/L (38-133); ALT/SGPT 25 U/L (7-56); AMYLASE 94 U/L (35-125); AST/SGOT 27 U/L (15-39); BILIRUBIN,TOTAL 0.6 mg/dL (0.2-1.3); BLOOD UREA NITROGEN 22 mg/dL (7-21); CALCIUM 9.6 mg/dL (8.4-10.5); CARBON DIOXIDE 28 mmol/L (21-33); CHLORIDE 100 mmol/L (98-107); GFR AFRICAN-AMERICAN > 60; GLUCOSE,RANDOM 105 mg/dL (70-110); LIPASE 116 U/L (23-300); POTASSIUM 3.8 mmol/L (3.6-5.0); SODIUM 140 mmol/L (132-148); TOTAL PROTEIN 7.5 g/dL (5.8-8.3)
[2016-11-11 03:21] LABS: INR 0.94 (0.93-1.08); PARTIAL THROMBOPLASTIN TIME 25.4 Seconds (23.7-30.8)
[2016-11-11 03:29] LABS: WHITE BLOOD COUNT 12.4 10^3/ul (4.5-11.0)
[2016-11-11 03:33] LABS: TROPONIN I < 0.01 ng/mL
[2016-11-11 03:44] LABS: PH,URINE 5.5 (4.7-8.0); URINE BILIRUBIN NEGATIVE (NEGATIVE); URINE BLOOD NEGATIVE (NEGATIVE); URINE GLUCOSE (UA) NEGATIVE (NEGATIVE); URINE KETONE TRACE mg/dL (NEGATIVE); URINE LEUKOCYTE ESTERASE NEGATIVE Leu/uL (NEGATIVE); URINE PROTEIN TRACE mg/dL (<30 mg/dL); URINE UROBILINOGEN 0.2 E.U./dL (<1 E.U./dL)
[2016-11-11 03:48] LABS: URINE COLOR YELLOW (YELLOW)
[2016-11-11 03:49] LABS: URINE APPEARANCE SL CLOUDY (CLEAR)
[2016-11-11 04:08] LABS: URINE WBC NEGATIVE /hpf (0-6)
[2016-11-11 04:09] LABS: URINE BACTERIA MANY (NEG); URINE RBC 0 - 2 /hpf (0-2)
[2016-11-11] MEDS ORDERED: metroNIDAZOLE IV 500 mg/100 ml 500 MG/100 ML BAG IVPB STA (04:25)
[2016-11-11] MEDS ORDERED: Albuterol-Ipratrop 3 mg / 0.5 (3 ml) UD IH PRN (04:28)
[2016-11-11 04:54] VITALS: RESP 18
[2016-11-11 06:44] VITALS: BP 129/68; TEMP 98
--- NOTE | 2016-11-11 07:31 | CP.PCM.PCO ---
Physician Communication Note - Physician Communication Note Physician Communication Note: Gastroenteritis-Trial PO Meds only-No diet:c/s stool
--- NOTE | 2016-11-11 08:21 | CP.PCM.CON ---
<Davion Sandhu - Last Filed: 11/11/16 08:08> History of Present Illness - History of Present Illness History of Present Illness: Davion Sandhu D.O. PGY-1, General Surgery Consultation Note: Dr. Varinder Kauffman. 66 year old female with a PMH of multiple abdominal surgeries (last 06/15/16), SBO in the past, hiatal hernia, umbilical hernia, diverticulosis, who presented to [facility] ER after having episodes of diarrhea and vomiting and abdominal pain. Surgical consultation was placed for this abdominal pain. Patient was seen and examined at bedside with surgical team. Patient states that she had thrown up multiple times, brownish in color, non-bloody and non-bilious, associated with any PO intake. Patient states that she also had some bouts of diarrhea, also non -bloody and with no mucous. Patient describes abdominal pain as generalized, 5/ 10, "like an ache", non-radiating, no alleviating or aggravating factors. Review of Systems - Review of Systems All systems: reviewed and no additional remarkable complaints except - Gastrointestinal Gastrointestinal: Diarrhea, Nausea, Vomiting Past Patient History - Infectious Disease Hx of Infectious Diseases: None - Tetanus Immunizations Tetanus Immunization: Unknown - Past Social History Smoking Status: Former Smoker - CARDIAC Hx Cardiac Disorders: Yes ([place] 06/09/13, DVT s/p filter) Hx Hypertension: Yes - PULMONARY Hx Asthma: Yes Hx Chronic Obstructive Pulmonary Disease (COPD): Yes - NEUROLOGICAL HX Cerebrovascular Accident: Yes - HEENT Hx HEENT Problems: No Hx Cataracts: (Unknown) Hx Deafness: Yes ([place]) Hx Difficulty Chewing: No Hx Glaucoma: Yes - RENAL Hx Chronic Kidney Disease: No Hx Dialysis: No - ENDOCRINE/METABOLIC Hx Diabetes Mellitus Type 2: Yes Hx Hypothyroidism: Yes - HEMATOLOGICAL/ONCOLOGICAL Hx Blood Disorders: Yes Hx Anemia: Yes Hx Cancer: No - INTEGUMENTARY Hx Dermatological Problems: No Other/Comment: bilateral arms eccymotic areas - MUSCULOSKELETAL/RHEUMATOLOGICAL Hx Falls: Yes - GASTROINTESTINAL Hx Gastrointestinal Disorders: Yes (hiatal hernia, umbilical hernia) Hx Diverticulitis: Yes (and diverticulosis) Hx Gastroesophageal Reflux: Yes Hx Liver Failure: No Hx Pancreatitis: Yes HX Swallowing Problems: No - GENITOURINARY/GYNECOLOGICAL Hx Genitourinary Disorders: Yes Hx Incontinence: Yes - PSYCHIATRIC Hx Substance Use: No - SURGICAL HISTORY Hx Cholecystectomy: Yes Hx Coronary Stent: Yes (06/09/13) Other/Comment: Hernia Surgery-15 June 2016 - ANESTHESIA Hx Anesthesia Reactions: No Hx Malignant Hyperthermia: No Meds Allergies/Adverse Reactions: Allergies Allergy/AdvReac Type Severity Reaction Status Date / Time amoxicillin [From Augmentin] Allergy RASH Verified 11/11/16 02:18 ciprofloxacin [From Cipro] Allergy RASH Verified 11/11/16 02:18 ciprofloxacin HCl Allergy RASH Verified 06/16/16 08:21 [From Cipro] clavulanic acid Allergy RASH Verified 11/11/16 02:18 [From Augmentin] iodine Allergy RASH Verified 11/11/16 02:18 linezolid [From Zyvox] Allergy REDNESS Verified 11/11/16 02:18 Sulfa (Sulfonamide Allergy RASH Verified 11/11/16 02:18 Antibiotics) tiotropium bromide Allergy RASH Verified 11/11/16 02:18 [From Spiriva with HandiHaler] seafood Allergy RASH Uncoded 11/11/16 02:18 - Medications Medications: Current Medications Acetaminophen (Tylenol 325mg Tab) 650 mg PO Q4H PRN PRN Reason: Fever >100.5 F Albuterol/Ipratropium (Duoneb 3 Mg/0.5 Mg (3 Ml) Ud) 3 ml IH Q4H PRN PRN Reason: Shortness of Breath Sodium Chloride (Sodium Chloride 0.9%) 1,000 mls @ 100 mls/hr IV .Q10H STA Stop: 11/11/16 12:31 Last Admin: 11/11/16 02:45 Dose: 100 mls/hr Sodium Chloride (Sodium Chloride 0.9%) 1,000 mls @ 80 mls/hr IV .[id number] [facility] Last Admin: 11/11/16 02:56 Dose: 80 mls/hr Sodium Chloride (Sodium Chloride 0.9%) 1,000 mls @ 100 mls/hr IV .Q10H STA Stop: 11/11/16 14:27 Last Admin: 11/11/16 04:34 Dose: Not Given Ondansetron HCl (Zofran Inj) 4 mg IVP Q6H PRN PRN Reason: Nausea/Vomiting Last Admin: 11/11/16 05:02 Dose: 4 mg Physical Exam - Constitutional Appears: Non-toxic, No Acute Distress - Head Exam Head Exam: ATRAUMATIC, NORMOCEPHALIC - Eye Exam Eye Exam: EOMI, Normal appearance - ENT Exam ENT Exam: Mucous Membranes Moist - Neck Exam Additional comments: soft, supple - Respiratory Exam Respiratory Exam: absent: Accessory Muscle Use, Respiratory Distress - Cardiovascular Exam Cardiovascular Exam: RRR, +S1, +S2 - GI/Abdominal Exam GI & Abdominal Exam: Soft, Tenderness (diffuse, mild, achy). absent: Distended Additional comments: multiple well healed surgical incisions - Extremities Exam Extremities exam: Negative for: pedal edema, tenderness - Neurological Exam Neurological exam: Alert, Oriented x3 - Skin Skin Exam: Dry, Warm Results - Vital Signs Recent Vital Signs: Last Vital Signs Temp 98.0 F 11/11/16 06:13 Pulse 84 11/11/16 06:13 Resp 18 11/11/16 06:13 BP 129/68 11/11/16 06:13 Pulse Ox 99 11/11/16 04:53 - Labs Result Diagrams: 11/11/16 02:45 11/11/16 02:45 Labs: Laboratory Results - last 24 hr 11/11/16 07:43 POC Glucose (mg/dL) 98 Assessment & Plan - Assessment and Plan (Free Text) Assessment: 66 year old female with a PMH of multiple abdominal surgeries and previous SBO presenting with abdominal pain, nausea, vomiting, and diarrhea Plan: Symptomatology suggestive of gastroenteritis and not an SBO CT abd/pelvis reviewed, concurs with above NPO except meds On gentle hydration C. Diff and stool C/S pending Will discuss with attending physician. Thank you for the pleasure of participating in the care of this patient. - Date & Time Date: 11/11/16 Time: 06:35 <Martin Reeder - Last Filed: 11/11/16 10:21> Meds - Medications Medications: Current Medications Acetaminophen (Tylenol 325mg Tab) 650 mg PO Q4H PRN PRN Reason: Fever >100.5 F Albuterol/Ipratropium (Duoneb 3 Mg/0.5 Mg (3 Ml) Ud) 3 ml IH Q4H PRN PRN Reason: Shortness of Breath Last Admin: 11/11/16 08:05 Dose: 3 ml Sodium Chloride (Sodium Chloride 0.9%) 1,000 mls @ 100 mls/hr IV .Q10H STA Stop: 11/11/16 12:31 Last Admin: 11/11/16 02:45 Dose: 100 mls/hr Sodium Chloride (Sodium Chloride 0.9%) 1,000 mls @ 80 mls/hr IV .[id number] [facility] Last Admin: 11/11/16 02:56 Dose: 80 mls/hr Sodium Chloride (Sodium Chloride 0.9%) 1,000 mls @ 100 mls/hr IV .Q10H STA Stop: 11/11/16 14:27 Last Admin: 11/11/16 04:34 Dose: Not Given Ondansetron HCl (Zofran Inj) 4 mg IVP Q6H PRN PRN Reason: Nausea/Vomiting Last Admin: 11/11/16 05:02 Dose: 4 mg Results - Vital Signs Recent Vital Signs: Last Vital Signs Temp 98.0 F 11/11/16 06:13 Pulse 84 11/11/16 08:09 Resp 18 11/11/16 06:13 BP 129/68 11/11/16 06:13 Pulse Ox 97 11/11/16 06:00 - Labs Result Diagrams: 11/11/16 02:45 11/11/16 02:45 Labs: Laboratory Results - last 24 hr 11/11/16 07:43 POC Glucose (mg/dL) 98 Assessment & Plan - Assessment and Plan (Free Text) Assessment: consult done under my direct supervision-see my note please Akil Reeder MD FACS
--- NOTE | 2016-11-11 08:22 | CP.PCM.CON ---
<Ansley Joe - Last Filed: 11/11/16 10:37> History of Present Illness - History of Present Illness History of Present Illness: GI consult note 66 year old female with past medical history of COPD, CAD s/p stents, degenerative disk disease, hx. of SBO treated surgically, hx of ventral hernia repair on 05/25/2016 with removal of mesh on 06/23/2016, diverticulosis is admitted to hospital for intractable abd pain, N/V. Patient states that abd pain began last night after eating dinner of macaroni salad. Abdominal pain is located in the suprapubic region. Patient states that she had a few episodes of vomiting up brown food, NBNB. She also experienced 2 episodes of loose watery stools, non-bloody. Patient denies having any F/C, sick contacts, recent travels. Patient states that abd pain, N/V/D have all now improved. Patient states that she has had 4 colonoscopies in past [address] Bai. She relates that she was diagnosed with diverticulosis and had polyp removal. Patient also has had multiple EGD procedures in past 15 years but does not know results. 12 point ROS are negative except for above mentioned. PMHx: stated above PSHx: cholecystectomy, ventral hernia repair 05/25/2016, ex-lap with removal of mesh 06/23/2016 SocialHx: former smoker, denies EtOH/drugs Meds: see MAR Past Patient History - Infectious Disease Hx of Infectious Diseases: None - Tetanus Immunizations Tetanus Immunization: Unknown - Past Social History Smoking Status: Former Smoker Chewing Tobacco Use: No Cigar Use: No Alcohol: None Drugs: Denies Home Situation {Lives}: Alone - CARDIAC Hx Cardiac Disorders: Yes ([place] 06/09/13, DVT s/p filter) Hx Hypertension: Yes - PULMONARY Hx Asthma: Yes Hx Chronic Obstructive Pulmonary Disease (COPD): Yes - NEUROLOGICAL HX Cerebrovascular Accident: Yes - HEENT Hx HEENT Problems: No Hx Cataracts: (Unknown) Hx Deafness: Yes (MOAPA) Hx Difficulty Chewing: No Hx Glaucoma: Yes - RENAL Hx Chronic Kidney Disease: No Hx Dialysis: No - ENDOCRINE/METABOLIC Hx Diabetes Mellitus Type 2: Yes Hx Hypothyroidism: Yes - HEMATOLOGICAL/ONCOLOGICAL Hx Blood Disorders: Yes Hx Anemia: Yes Hx Cancer: No - INTEGUMENTARY Hx Dermatological Problems: No Other/Comment: bilateral arms eccymotic areas - MUSCULOSKELETAL/RHEUMATOLOGICAL Hx Falls: Yes - GASTROINTESTINAL Hx Gastrointestinal Disorders: Yes (hiatal hernia, umbilical hernia) Hx Diverticulitis: Yes (and diverticulosis) Hx Gastroesophageal Reflux: Yes Hx Liver Failure: No Hx Pancreatitis: Yes HX Swallowing Problems: No - GENITOURINARY/GYNECOLOGICAL Hx Genitourinary Disorders: Yes Hx Incontinence: Yes - PSYCHIATRIC Hx Substance Use: No - SURGICAL HISTORY Hx Cholecystectomy: Yes Hx Coronary Stent: Yes (06/09/13) Other/Comment: Hernia Surgery-15 June 2016 - ANESTHESIA Hx Anesthesia Reactions: No Hx Malignant Hyperthermia: No Meds Allergies/Adverse Reactions: Allergies Allergy/AdvReac Type Severity Reaction Status Date / Time amoxicillin [From Augmentin] Allergy RASH Verified 11/11/16 02:18 ciprofloxacin [From Cipro] Allergy RASH Verified 11/11/16 02:18 ciprofloxacin HCl Allergy RASH Verified 06/16/16 08:21 [From Cipro] clavulanic acid Allergy RASH Verified 11/11/16 02:18 [From Augmentin] iodine Allergy RASH Verified 11/11/16 02:18 linezolid [From Zyvox] Allergy REDNESS Verified 11/11/16 02:18 Sulfa (Sulfonamide Allergy RASH Verified 11/11/16 02:18 Antibiotics) tiotropium bromide Allergy RASH Verified 11/11/16 02:18 [From Spiriva with HandiHaler] seafood Allergy RASH Uncoded 11/11/16 02:18 - Medications Medications: Current Medications Acetaminophen (Tylenol 325mg Tab) 650 mg PO Q4H PRN PRN Reason: Fever >100.5 F Albuterol/Ipratropium (Duoneb 3 Mg/0.5 Mg (3 Ml) Ud) 3 ml IH Q4H PRN PRN Reason: Shortness of Breath Last Admin: 11/11/16 08:05 Dose: 3 ml Sodium Chloride (Sodium Chloride 0.9%) 1,000 mls @ 100 mls/hr IV .Q10H STA Stop: 11/11/16 12:31 Last Admin: 11/11/16 02:45 Dose: 100 mls/hr Sodium Chloride (Sodium Chloride 0.9%) 1,000 mls @ 80 mls/hr IV .[id number] SALLY Last Admin: 11/11/16 02:56 Dose: 80 mls/hr Sodium Chloride (Sodium Chloride 0.9%) 1,000 mls @ 100 mls/hr IV .Q10H STA Stop: 11/11/16 14:27 Last Admin: 11/11/16 04:34 Dose: Not Given Ondansetron HCl (Zofran Inj) 4 mg IVP Q6H PRN PRN Reason: Nausea/Vomiting Last Admin: 11/11/16 05:02 Dose: 4 mg Physical Exam - Constitutional Appears: Non-toxic, No Acute Distress - Head Exam Head Exam: ATRAUMATIC - Eye Exam Eye Exam: EOMI - ENT Exam ENT Exam: Mucous Membranes Moist - Respiratory Exam Respiratory Exam: Wheezes. absent: Accessory Muscle Use, Rales, Rhonchi, Respiratory Distress - Cardiovascular Exam Cardiovascular Exam: REGULAR RHYTHM, +S1, +S2. absent: Diastolic murmur, Gallop , Rubs, Systolic Murmur - GI/Abdominal Exam GI & Abdominal Exam: Normal Bowel Sounds, Soft. absent: Diminished Bowel Sounds , Distended, Firm, Guarding, Organomegaly, Rigid, Tenderness Additional comments: midline scar noted with proper healing - Rectal Exam Rectal Exam: Hemorrhoids (external). absent: Black Stool, Bloody Stool, Fecal Impaction Additional comments: good rectal tone - Extremities Exam Extremities exam: Negative for: pedal edema, tenderness - Neurological Exam Neurological exam: Alert, Oriented x3 - Psychiatric Exam Psychiatric exam: Normal Affect, Normal Mood - Skin Skin Exam: Dry, Intact, Normal Color Results - Vital Signs Recent Vital Signs: Last Vital Signs Temp 98.0 F 11/11/16 06:13 Pulse 84 11/11/16 08:09 Resp 18 11/11/16 06:13 BP 129/68 11/11/16 06:13 Pulse Ox 99 11/11/16 04:53 - Labs Result Diagrams: 11/11/16 02:45 11/11/16 02:45 Labs: Laboratory Results - last 24 hr 11/11/16 07:43 POC Glucose (mg/dL) 98 Assessment & Plan - Assessment and Plan (Free Text) Assessment: 66 year old female with past medical history of COPD, CAD s/p stents, degenerative disk disease, hx. of SBO treated surgically, hx of ventral hernia repair on 05/25/2016 with removal of mesh on 06/23/2016, diverticulosis is admitted to hospital for intractable abd pain, N/V. CT abd/pelvis on admission shows fluid throughout small bowel, liquid stool in portion of colon representing degree of enterocolitis, no bowel obstruction. On blood work, LFTs , T bili, lipase and amylase are WNL. WBC count slightly elevated at 12.4. Patient does have hx of endoscopy procedures and patient relates the diagnosis of diverticulosis and polyps. However, no report to confirm. 1. intractable abd pain - Improved - will advance diet as tolerated. CLD for breakfast - recommend outpatient colonoscopy once symptoms improve. - Will sign off. Please feel free to re- consult if necessary Case discussed with attending, Dr. Wood - Date & Time Date: 11/11/16 Time: 08:32 <Dwayne Wood MD - Last Filed: 11/11/16 10:43> Meds - Medications Medications: Current Medications Acetaminophen (Tylenol 325mg Tab) 650 mg PO Q4H PRN PRN Reason: Fever >100.5 F Albuterol/Ipratropium (Duoneb 3 Mg/0.5 Mg (3 Ml) Ud) 3 ml IH Q4H PRN PRN Reason: Shortness of Breath Last Admin: 11/11/16 08:05 Dose: 3 ml Sodium Chloride (Sodium Chloride 0.9%) 1,000 mls @ 100 mls/hr IV .Q10H STA Stop: 11/11/16 12:31 Last Admin: 11/11/16 02:45 Dose: 100 mls/hr Sodium Chloride (Sodium Chloride 0.9%) 1,000 mls @ 80 mls/hr IV .[id number] SALLY Last Admin: 11/11/16 02:56 Dose: 80 mls/hr Sodium Chloride (Sodium Chloride 0.9%) 1,000 mls @ 100 mls/hr IV .Q10H STA Stop: 11/11/16 14:27 Last Admin: 11/11/16 04:34 Dose: Not Given Ondansetron HCl (Zofran Inj) 4 mg IVP Q6H PRN PRN Reason: Nausea/Vomiting Last Admin: 11/11/16 05:02 Dose: 4 mg Results - Vital Signs Recent Vital Signs: Last Vital Signs Temp 98.0 F 11/11/16 06:13 Pulse 84 11/11/16 08:09 Resp 18 11/11/16 06:13 BP 129/68 11/11/16 06:13 Pulse Ox 97 11/11/16 06:00 - Labs Result Diagrams: 11/11/16 02:45 11/11/16 02:45 Labs: Laboratory Results - last 24 hr 11/11/16 07:43 POC Glucose (mg/dL) 98 Attending/Attestation - Attestation I have personally seen and examined this patient.: Yes I have fully participated in the care of the patient.: Yes I have reviewed all pertinent clinical information: Yes Notes (Text): 11/11/16 10:42 Patient seen with GI fellow and medical assisting instructor on rounds this am. This is a 66 year old female with past medical history of COPD, CAD s/p stents, degenerative disk disease, hx. of SBO treated surgically, hx of ventral hernia repair on 05/25/2016 with removal of mesh on 06/23/2016, diverticulosis is admitted to hospital for intractable abd pain, N/V now resolved likely from a bout of gastroenteritis after eating pasta salad. CT abd/pelvis on admission shows fluid throughout small bowel, liquid stool in portion of colon representing degree of enterocolitis, no bowel obstruction. On blood work, LFTs , T bili, lipase and amylase are WNL. WBC count slightly elevated at 12.4. Patient does have hx of endoscopy procedures and patient relates the diagnosis of diverticulosis and polyps. However, no report to confirm. Advance diet and can be discharged to home today. Thank you for letting us participate in the care of your patient.
[2016-11-11 08:23] VITALS: O2SAT 97
--- NOTE | 2016-11-11 08:42 | CT ---
PROCEDURE: CT Abdomen and Pelvis without intravenous contrast HISTORY: abd pain COMPARISON: None. TECHNIQUE: Technique. Contrast Dose: Radiation dose: Total exam DLP = 533 mGy-cm. This CT exam was performed using one or more of the following dose reduction techniques: Automated exposure control, adjustment of the mA and/or kV according to patient size, and/or use of iterative reconstruction technique. FINDINGS: LOWER THORAX: Unremarkable. LIVER: Unremarkable. No gross lesion or ductal dilatation. GALLBLADDER AND BILE DUCTS: Cholecystectomy. PANCREAS: Unremarkable. No gross lesion or ductal dilatation. SPLEEN: Unremarkable. ADRENALS: Unremarkable. No mass. KIDNEYS AND URETERS: Unremarkable. No hydronephrosis. No solid mass. VASCULATURE: Inferior vena cava filter in place. No aortic aneurysm. BOWEL: Diffuse colonic diverticulosis with extensive small bowel fluid compatible with possible enteritis/diarrhea.. No obstruction. No gross mural thickening. APPENDIX: Unremarkable. Normal appendix. PERITONEUM: Unremarkable. No free fluid. No free air. LYMPH NODES: Unremarkable. No enlarged lymph nodes. BLADDER: Unremarkable. REPRODUCTIVE: Unremarkable. BONES: No acute fracture. OTHER FINDINGS: None. IMPRESSION: Diffuse colonic diverticulosis with extensive small bowel fluid compatible with possible enteritis/diarrhea..
--- NOTE | 2016-11-11 11:13 | CON ---
DATE: 11/11/2016 CONSULTING REFERRING PHYSICIAN: Dr. Aguila. CORRESPONDENCE CLERK: Dr. Martin Reeder. REASON FOR CONSULTATION: Abdominal pain. HISTORY OF PRESENT ILLNESS: The patient enters the hospital with a 1-day history of diffuse abdomina l pain, vomiting significantly one time and having uncontrollable diarrhea that is arely in color. S he has a flawed history in the computer and this dictation should correct that. The patient has been an oxygen and steroid dependent emphysema patient for the past 25 years and huy els everywhere with the oxygen bottle. Last April at [facility], her very large ventral herni a that was approaching the size of a basketball became so symptomatic that the patient refused to be sent home for the fourth time in the ER and was admitted and eventually was operated on within the ne xt few days and survived the operation, developing a postoperative hematoma 2-1/2-3 weeks after surge ry. The hematoma became infected and the mesh had to be removed with a second operation. The patient had been attempting to get this hernia repaired for several years and was told by her pul smoke chaser that she would not survive the surgery and in this history, you see the patient has surviv ed 2 surgeries within 1 month of each other. The patient is diabetic, but because of significant tary weight loss (30-35 pounds) in anticipation of a hernia operation, she is not taking any medicati on at this point and will be placed on fingersticks. The patient did describe being bitten on the right thumb at the MP junction, having a swollen hand, s eeing her doctor for the infection, but did not take antibiotics, took topical mupirocin and it is no t expected that the patient will have C. difficile. PAST MEDICAL HISTORY: Includes: 1. Cholecystectomy. 2. Multiple ventral hernias, most recent with removal of the mesh. 3. Umbilical hernia. 4. Chronic obstructive bronchopulmonary disease with severe problem. MEDICATION ALLERGIES: AMOXICILLIN, CIPRO, IODINE CONTRAST, LINEZOLID -- ZYVOX, SULFA AND SPIRIVA. S OME SEAFOODS ARE A PROBLEM. MEDICATIONS: The patient's medication is extensive. Vicodin 10 three times a day, MiraLax 17 g at d inner, Voltaren gel applied t.i.d., Xanax 0.5 b.i.d. cetirizine 10 mg daily, Xopenex 0.63 inhalation q, 6 hours, Symbicort 2 puffs daily, Toprol 25 mg daily, Zestril 5 mg daily, vitamin D 50,000 units a week, aspirin 81 mg, Zocor 20 mg daily, Protonix 40 mg daily, potassium chloride 20 mEq daily, and l evothyroxine 137 mcg daily. What is not given in this list, it is apparent that they did not ask the patient is that she is also taking prednisone 5 mg daily. The patient has improved overnight with intravenous hydration and antiemetics and has been given charity r liquids and we will attempt to start her medications at this point, particularly we will cover with fingerstick coverage without coverage and add the prednisone and the Xanax which are very difficult to withdraw from. The patient remains on oxygen and will have her stool specimens obtained now and s kerwinuld be able to slowly progress to a diet by the end of the day. I have advised the attending physician that the patient can stay today and could be discharged safely home tomorrow if condition is improved. DISCHARGE DIAGNOSES: At this point: 1. Acute gastroenteritis with dehydration. 2. Severe chronic obstructive bronchopulmonary disease. 3. Diabetes mellitus. 4. Hypertension. 5. Hyperlipidemia. RECOMMENDATIONS: As per above. I wish to thank you for the privilege of being able to see this patient with you, but will remain thr oughout her hospital stay any way that I can to facilitate her recovery. Martin Reeder MD cc: [phone] TT: 11/11/2016 11:12:31 Confirmation # [id number] Dictation # [id number] tn
[2016-11-11] MEDS ORDERED: Pantoprazole 40 mg EC Tab PO SCH (11:45)
[2016-11-11] MEDS ORDERED: Levalbuterol 0.63 MG/3 ML Inhal Soln UD IH SCH (11:45)
[2016-11-11] MEDS ORDERED: Metoprolol Succinate 25 mg XL Tab PO SCH (11:45)
[2016-11-11 12:05] VITALS: PULSE 85
--- NOTE | 2016-11-11 13:58 | HP ---
HISTORY OF PRESENT ILLNESS: The patient is 66 years old. The patient states she is having intractab le nausea. She had multiple episodes of vomiting. She also has black stools going on since yesterda y. This morning, she has abdominal pain, so she came to Emergency Room for further evaluation. Freeman es any fever or chills. No hemoptysis, no hematemesis. The patient is not sure if this is gastroent eritis or food poisoning. PAST MEDICAL HISTORY: 1. She has significant prolonged past medical history of COPD. 2. Hypertension. 3. Coronary artery disease, status post angioplasty. 4. Hiatal hernia. 5. History of ventral hernia, status post recent ventral hernia repair. 6. Chronic degenerative disk disease. 7. Terminal COPD. ALLERGIES: 1. CIPRO. 2. SPIRIVA. 3. SULFA DRUGS. 4. IODINE. MEDICATIONS AT HOME: 1. She is on vitamin D. 2. She is on Plavix 75 daily. 3. Lasix 40 mg daily. 4. Lisinopril 5 mg daily. 5. Metoprolol 25 daily. 6. Simvastatin 20 mg daily. REVIEW OF SYSTEMS: Significant for nausea and vomiting, but she states she feels well and is looking for food and feels hungry. PHYSICAL EXAMINATION: GENERAL: She is awake and alert, communicative. VITAL SIGNS: She is afebrile, pulse 85, respirations 18, blood pressure 129/ . LUNGS: Bilateral good airflow, no rhonchi or crackle. HEART: S1, S2 audible. No murmur. ABDOMEN: Soft, nontender, no rebound, no guarding. NEUROLOGIC: She is awake and alert, communicative. LABORATORY DATA: WBC is 12.4, hemoglobin 14, hematocrit 43, platelets of 246. PT 10.2, INR 0.94. C hemistry: Sodium 140, potassium 3.8, chloride 100, CO2 of 28, BUN 22, creatinine 0.5, blood sugar of 90. LFTs are within normal limits. Urinalysis is negative. CT scan of the abdomen and pelvis was done this morning that shows diffuse colonic diverticulosis with extensive small bowel fluids compati ble with possible enteritis diarrhea. ASSESSMENT: 1. Gastroenteritis. The patient's belly is soft. She has good bowel sounds. She says she is hungr y and wants to eat. 2. History of small bowel obstruction in the past. 3. Ventral hernia with repair. 4. Coronary artery disease. 5. Hypertension. 6. Hyperlipidemia. PLAN: We will advance her diet. If she tolerates, she can be discharged later on today. Lori Aguila MD cc: [phone] TT: 11/11/2016 13:57:02 dn
--- NOTE | 2016-11-11 15:30 | CARD ---
APPROVED REPORT EKG Measurement Heart [id number] <Conclusion> Sinus rhythm with occasional premature ventricular complexes Possible Left atrial enlargement Right bundle branch block Left anterior fascicular block Bifascicular block Left ventricular hypertrophy Abnormal ECG
== END 2016-11-11 17:59 | disposition home or self-care (01) ==
LOC: ED 02:15 → ERH 04:27 → 3RSO 06:07
PROVIDERS: ADMIT Internal Medicine; ATTEND Internal Medicine
DX: K52.9 Noninfective gastroenteritis and colitis, unspecified (principal); R10.9 Unspecified abdominal pain; E03.9 Hypothyroidism, unspecified; E11.9 Type 2 diabetes mellitus without complications; E78.5 Hyperlipidemia, unspecified; H40.9 Unspecified glaucoma; H91.90 Unspecified hearing loss, unspecified ear; I10 Essential (primary) hypertension; I25.10 Atherosclerotic heart disease of native coronary artery without angina pectoris; J44.9 Chronic obstructive pulmonary disease, unspecified; K21.9 Gastro-esophageal reflux disease without esophagitis; K43.9 Ventral hernia without obstruction or gangrene; K57.90 Diverticulosis of intestine, part unspecified, without perforation or abscess without bleeding; Z79.02 Long term (current) use of antithrombotics/antiplatelets; Z79.52 Long term (current) use of systemic steroids; Z79.82 Long term (current) use of aspirin; Z79.899 Other long term (current) drug therapy; Z86.718 Personal history of other venous thrombosis and embolism; Z86.73 Personal history of transient ischemic attack (TIA), and cerebral infarction without residual deficits; Z87.891 Personal history of nicotine dependence; Z90.49 Acquired absence of other specified parts of digestive tract; Z95.5 Presence of coronary angioplasty implant and graft; M51.36 Other intervertebral disc degeneration, lumbar region; K44.9 Diaphragmatic hernia without obstruction or gangrene; Z87.19 Personal history of other diseases of the digestive system; R32 Unspecified urinary incontinence; Z88.2 Allergy status to sulfonamides; Z88.8 Allergy status to other drugs, medicaments and biological substances; Z88.1 Allergy status to other antibiotic agents; Z88.0 Allergy status to penicillin; Z91.013 Allergy to seafood; R40.2412 Glasgow coma scale score 13-15, at arrival to emergency department; I45.2 Bifascicular block; I51.7 Cardiomegaly; D64.9 Anemia, unspecified
CPT/HCPCS: 74176; 80053; 81001; 82150; 82550; 82948; 83615; 83690; 84484; 85025; 85610; 85730; 87040; 93005; 94640; 96365; 96375; 96376; 99284; G0378; J1170; J2405; J7040; Q9966

== ENCOUNTER 2017-02-02 10:56 | Inpatient (IN) | payer MEDICARE, OTHER ==
--- NOTE | 2017-02-02 11:35 | ED PDOC ---
Arrival/HPI - General Chief Complaint: Abdominal Pain Time Seen by Provider: 02/02/17 11:09 Historian: Patient - History of Present Illness Narrative History of Present Illness (Text): 02/02/17 11:34 A 66 year old female, whose past medical history includes advanced COPD on home oxygen, hypertension, CAD s/p angioplasty, and hiatal hernia, presents to the emergency department complaining of abdominal pain since this morning. Patient notes nausea, non-bilious non-bloody vomiting and 1 episode of non-bloody loose stool. She also notes a mild headache but denies any fever, chills, chest pain, shortness of breath, dizziness, visual changes or any other complaints. Time/Duration: Other (this morning) Symptom Course: Unchanged Quality: Other Context: Home Past Medical History - Provider Review Nursing Documentation Reviewed: Yes - Infectious Disease Hx of Infectious Diseases: None - Tetanus Immunization Tetanus Immunization: Unknown - Cardiac Hx Cardiac Disorders: Yes ([place] 06/09/13, DVT s/p filter) Hx Hypertension: Yes - Pulmonary Hx Chronic Obstructive Pulmonary Disease (COPD): Yes (O2 @ Home) - Neurological HX Cerebrovascular Accident: Yes - HEENT Hx HEENT Disorder: No Hx Cataracts: (Unknown) Hx Deafness: Yes ([place]) Hx Difficulty Chewing: No Hx Glaucoma: Yes - Renal Hx Renal Disorder: No Hx Dialysis: No - Endocrine/Metabolic Hx Diabetes Mellitus Type 2: Yes Hx Hypothyroidism: Yes - Hematological/Oncological Hx Blood Transfusions: Yes Hx Blood Transfusion Reaction: No - Integumentary Hx Dermatological Disorder: No Other/Comment: bilateral arms eccymotic areas - Musculoskeletal/Rheumatological Hx Falls: Yes - Gastrointestinal Hx Gastrointestinal Disorders: Yes (hiatal hernia, umbilical hernia) Hx Diverticulitis: Yes (and diverticulosis) Hx Gastroesophageal Reflux: Yes Hx Liver Failure: No Hx Pancreatitis: Yes HX Swallowing Problems: No - Genitourinary/Gynecological Hx Genitourinary Disorders: Yes Hx Incontinence: Yes - Psychiatric Hx Psychophysiologic Disorder: Yes Hx Anxiety: Yes Hx Depression: Yes Hx Substance Use: No - Surgical History Hx Cholecystectomy: Yes Hx Coronary Stent: Yes (06/09/13) Other/Comment: Hernia Surgery-15 June 2016 - Anesthesia Hx Anesthesia Reactions: No Hx Malignant Hyperthermia: No - Suicidal Assessment Feels Threatened In Home Enviroment: No Family/Social History - Physician Review Nursing Documentation Reviewed: Yes Family/Social History: No Known Family HX Smoking Status: Former Smoker Hx Alcohol Use: No Hx Substance Use: No Hx Substance Use Treatment: No Allergies/Home Meds Allergies/Adverse Reactions: Allergies amoxicillin [From Augmentin] Allergy (Verified 11/11/16 02:18) RASH ciprofloxacin [From Cipro] Allergy (Verified 11/11/16 02:18) RASH ciprofloxacin HCl [From Cipro] Allergy (Verified 06/16/16 08:21) RASH clavulanic acid [From Augmentin] Allergy (Verified 11/11/16 02:18) RASH iodine Allergy (Verified 11/11/16 02:18) RASH linezolid [From Zyvox] Allergy (Verified 11/11/16 02:18) REDNESS Sulfa (Sulfonamide Antibiotics) Allergy (Verified 11/11/16 02:18) RASH tiotropium bromide [From Spiriva with HandiHaler] Allergy (Verified 11/11/16 02: 18) RASH seafood Allergy (Uncoded 11/11/16 02:18) RASH Home Medications: Home Meds Medication Instructions Recorded Confirmed Alprazolam [Xanax] 0.5 mg PO BID 11/11/16 11/11/16 Aspirin [Adult Low Dose Aspirin EC] 81 mg PO DAILY 11/11/16 11/11/16 Budesonide/Formoterol Fumarate 2 puff IH DAILY 11/11/16 11/11/16 [Symbicort] Cetirizine HCl [Zyrtec Allergy] 10 mg PO DAILY 11/11/16 11/11/16 Diclofenac Sodium [Voltaren] 1 appl TP TID 11/11/16 11/11/16 Ergocalciferol (Vitamin D2) 50,000 unit PO QWK 11/11/16 11/11/16 [Vitamin D2] Hydrocodone/Acetaminophen [[place] 1 each PO TID 11/11/16 11/11/16 10-325 Tablet] Levalbuterol [Xopenex] 0.63 mg IH Q6H 11/11/16 11/11/16 Levothyroxine [Synthroid] 137 mcg PO DAILY 11/11/16 11/11/16 Lisinopril [Zestril] 5 mg PO DAILY 11/11/16 11/11/16 Metoprolol Succinate 25 mg PO DAILY 11/11/16 11/11/16 Pantoprazole [Protonix] 40 mg PO DAILY 11/11/16 11/11/16 Polyethylene Glycol 3350 [Miralax] 17 gm PO HS 11/11/16 11/11/16 Potassium Chloride [K-Dur 20] 20 meq PO DAILY 11/11/16 11/11/16 Simvastatin [Zocor] 20 mg PO DAILY 11/11/16 11/11/16 Review of Systems - Physician Review All systems were reviewed & negative as marked: Yes - Review of Systems Constitutional: absent: Fevers, Night Sweats Eyes: absent: Vision Changes Respiratory: absent: SOB Cardiovascular: absent: Chest Pain Gastrointestinal: Abdominal Pain, Stool Changes, Nausea, Vomiting Neurological: Headache. absent: Dizziness Physical Exam Vital Signs Reviewed: Yes Vital Signs Temp Pulse Resp BP Pulse Ox 02/02/17 12:51 84 20 132/74 98 02/02/17 12:33 84 20 97 02/02/17 11:51 101 H 20 131/78 98 02/02/17 11:20 109 H 24 128/91 H 97 02/02/17 11:06 98.4 F 113 H 20 128/91 H 96 Temperature: Afebrile Blood Pressure: Hypertensive Pulse: Tachycardic Respiratory Rate: Normal Appearance: Positive for: Well-Appearing, Non-Toxic, Comfortable Pain Distress: None Mental Status: Positive for: Alert and Oriented X 3 - Systems Exam Head: Present: Atraumatic, Normocephalic Pupils: Present: PERRL Conjunctiva: Present: Normal Mouth: Present: Moist Mucous Membranes Pharnyx: Present: Normal. No: ERYTHEMA, EXUDATE Neck: Present: Normal Range of Motion Respiratory/Chest: Present: Decreased Breath Sounds (bilaterally). No: Respiratory Distress, Accessory Muscle Use Cardiovascular: Present: Regular Rate and Rhythm, Normal S1, S2. No: Murmurs Abdomen: Present: Tenderness (Diffuse lower abdominal tenderness to palpation), Normal Bowel Sounds, Scars (multiple scars noted). No: Distention, Peritoneal Signs Back: Present: Normal Inspection Upper Extremity: Present: Normal Inspection. No: Cyanosis, Edema Lower Extremity: Present: Normal Inspection. No: Edema Neurological: Present: GCS=15, CN II-XII Intact, Speech Normal Skin: Present: Warm, Dry, Normal Color. No: Rashes Psychiatric: Present: Alert, Oriented x 3, Normal Insight, Normal Concentration Medical Decision Making ED Course and Treatment: 02/02/17 11:34 Impression: A 66 year old female with abdominal pain. Patient notes associated nausea, vomiting and loose stool. Patient also reports a mild headache. Differential: SBO vs gastroenteritis vs. divertivulitis Plan: -- Abdomen and pelvis CT -- Chest xray -- EKG -- Labs -- Blood culture -- Urinalysis -- Pepcid, Morphine, Zofran and IV fluids -- Reassess and disposition Progress Notes: EKG shows sinus tachycardia at 109 BPM with RBBB, LAD, LAFB, LVH by voltage criteria, QRS 142, QTc 503, no new changes compared to 11/11/16. Interpreted by me. 02/02/17 11:[address] Reeder, who will evaluate patient at bedside. 02/02/17 13:44 Patient with noted history; labs with leukocytosis that is essentially unchanged from previous. Remainder of labs are unremarkable. CT results as noted below: IMPRESSION: Probable mechanical small bowel obstruction. Point of transition is identified in the left lower quadrant of the abdomen. Followup advised. There is intra and extrahepatic biliary ductal dilatation. The patient is status post cholecystectomy. Nevertheless, the possibility of biliary obstruction should be considered. Please correlate with laboratory evaluation. Consider evaluation with MRCP.. Sigmoid diverticulosis without evidence of diverticulitis. Several small hyperdense lesions in the left kidney and probable cortical cyst upper pole right kidney. Recommend evaluation on a nonemergent basis with renal ultrasound. Patient with likely SBO on CT - will need NG tube (spoke with surgical services coordinator who will put it in). Case discussed with Dr. Reeder and Dr. Aguila, for admission on her service. - Lab Interpretations Lab Results: 02/02/17 11:34 02/02/17 11:34 Lab Results 02/02/17 12:00: Lactic Acid 1.2 02/02/17 11:34: Sodium 144, Potassium 3.9, Chloride 101, Carbon Dioxide 30, Anion Gap 17, BUN 21, Creatinine 0.6, Est GFR ( Amer) > 60, Est GFR (Non- Af Amer) > 60, Random Glucose 91, Calcium 9.6, Total Bilirubin 0.8, AST 24, ALT 27, Alkaline Phosphatase 76, Lactate Dehydrogenase 533, Total Creatine Kinase 64 , Troponin I < 0.01, Total Protein 7.3, Albumin 4.8, Globulin 2.5, Albumin/ Globulin Ratio 1.9 H, Amylase 80, Lipase 155 02/02/17 11:34: WBC 12.5 H, RBC 4.64, Hgb 14.6, Hct 43.8, MCV 94.4, MCH 31.5, MCHC 33.3, RDW 14.8 H, Plt Count 255, MPV 10.8, Gran % 72.7 H, Lymph % (Auto) 17.3 L, [place] % (Auto) 8.9 H, Eos % (Auto) 1.0 L, Baso % (Auto) 0.1, Gran # 9.05 H, Lymph # 2.2, [place] # 1.1 H, Eos # 0.1, Baso # 0.01 02/02/17 11:21: POC Glucose (mg/dL) 114 H I have reviewed the lab results: Yes - RAD Interpretation Radiology Orders: 02/02/17 11:34 CHEST ONE VIEW [RAD] Stat 02/02/17 11:38 ABD & PELVIS W/O PO OR IV CONT [CT] Stat - Medication Orders Current Medication Orders: Alprazolam (Xanax) 0.5 mg PO BID SALLY PRN Reason: Protocol Sodium Chloride (Sodium Chloride 0.9%) 1,000 mls @ 100 mls/hr IV .Q10H STA Stop: 02/02/17 21:35 Last Admin: 02/02/17 11:43 Dose: 100 mls/hr Levalbuterol HCl (Xopenex) 0.63 mg IH Q6H SALLY Ondansetron HCl (Zofran Inj) 4 mg IVP Q6H PRN PRN Reason: Nausea/Vomiting Pantoprazole Sodium (Protonix Inj) 40 mg IVP DAILY SALLY Discontinued Medications Famotidine (Pepcid) 20 mg IVP STAT STA Stop: 02/02/17 11:35 Last Admin: 02/02/17 11:43 Dose: 20 mg Iohexol (Omnipaque 350 100 Ml) Confirm Administered Dose 350 mg .ROUTE .STK-MED ONE Stop: 02/02/17 12:47 Morphine Sulfate (Morphine) 2 mg IVP STAT STA Stop: 02/02/17 11:39 Last Admin: 02/02/17 11:53 Dose: 2 mg Ondansetron HCl (Zofran Inj) 4 mg IVP STAT STA Stop: 02/02/17 11:35 Last Admin: 02/02/17 11:43 Dose: 4 mg - Dileepibe Statement The provider has reviewed the documentation as recorded by the Danny Rojo Provider Scribe Attestation: All medical record entries made by the Scribe were at my direction and personally dictated by me. I have reviewed the chart and agree that the record accurately reflects my personal performance of the history, physical exam, medical decision making, and the department course for this patient. I have also personally directed, reviewed, and agree with the discharge instructions and disposition. Disposition/Present on Arrival - Present on Arrival Any Indicators Present on Arrival: No History of DVT/PE: No History of Uncontrolled Diabetes: No Urinary Catheter: No History of Decub. Ulcer: No History Surgical Site Infection Following: Abdominal Surgery - Disposition Have Diagnosis and Disposition been Completed?: Yes Diagnosis: Small bowel obstruction Disposition: HOSPITALIZED Disposition Time: 13:30 Patient Plan: Admission Condition: FAIR Forms: [employer] (Italian)
[2017-02-02] MEDS ORDERED: Sodium Chloride 0.9% 1,000 ML IV STA ×2 (11:36→18:31)
[2017-02-02] MEDS ORDERED: Morphine 2 mg/ml ISec IVP STA (11:38)
[2017-02-02 12:26] LABS: ALB/GLOB RATIO 1.9 (1.1-1.8); ALKALINE PHOSPHATASE 76 U/L (38-126); ALT/SGPT 27 U/L (7-56); AMYLASE 80 U/L (35-125); AST/SGOT 24 U/L (14-36); BILIRUBIN,TOTAL 0.8 mg/dL (0.2-1.3); BLOOD UREA NITROGEN 21 mg/dL (7-21); CALCIUM 9.6 mg/dL (8.4-10.5); CARBON DIOXIDE 30 mmol/L (21-33); CHLORIDE 101 mmol/L (98-107); GFR AFRICAN-AMERICAN > 60; GLUCOSE,RANDOM 91 mg/dL (70-110); LIPASE 155 U/L (23-300); POTASSIUM 3.9 mmol/L (3.6-5.0); SODIUM 144 mmol/L (132-148); TOTAL PROTEIN 7.3 g/dL (5.8-8.3)
[2017-02-02 12:30] LABS: BASO # 0.01 K/mm3 (0.0-2.0); BASO % 0.1 % (0.0-3.0); EOS # 0.1 (0.0-0.7); GRAN # 9.05 (1.4-6.5); GRAN % 72.7 % (50.0-68.0); HEMATOCRIT 43.8 % (36.0-48.0); LYMPH # 2.2 (1.2-3.4); LYMPH % 17.3 % (22.0-35.0); MEAN CELL VOLUME 94.4 fl (80.0-105.0); MEAN CORPUSCULAR HEMOGLOBIN 31.5 pg (25.0-35.0); MEAN CORPUSCULAR HGB CONC 33.3 g/dl (31.0-37.0); MEAN PLATELET VOLUME 10.8 fl (7.0-11.0); MONO # 1.1 (0.1-0.6); MONO % 8.9 % (1.0-6.0); RED CELL DISTRIBUTION WIDTH 14.8 % (11.5-14.5); WHITE BLOOD COUNT 12.5 10^3/ul (4.5-11.0)
[2017-02-02 12:40] LABS: TROPONIN I < 0.01 ng/mL
[2017-02-02] MEDS ORDERED: Iohexol 350 MG/100 ML VIAL ONE (12:46)
--- NOTE | 2017-02-02 13:32 | CT ---
PROCEDURE: CT Abdomen and Pelvis without intravenous contrast HISTORY: abd pain, bilious vomiting, s/p hernia repair COMPARISON: 11/11/2016 TECHNIQUE: Without contrast.. Contrast Dose: 0 Radiation dose: Total exam DLP = 568.66 mGy-cm. This CT exam was performed using one or more of the following dose reduction techniques: Automated exposure control, adjustment of the mA and/or kV according to patient size, and/or use of iterative reconstruction technique. FINDINGS: LOWER THORAX: No infiltrate/ effusion. LIVER: Normal size and contour. No mass. There is intra and extrahepatic biliary dilatation. This is unchanged in extent compared to the prior CT examination. GALLBLADDER AND BILE DUCTS: Status post cholecystectomy. Common bile duct measures up to 11 mm in diameter. This may reflect prior cholecystectomy. However, in association with intrahepatic biliary dilatation, further evaluation is suggested. Please correlate with laboratory evaluation. Consider MRCP. PANCREAS: Unremarkable. No gross lesion or ductal dilatation. SPLEEN: Unremarkable. ADRENALS: Unremarkable. No mass. KIDNEYS AND URETERS: 7 mm rounded hyperdense lesion in lower pole left kidney. This is unchanged from prior examination but may have increased in prominence or size when compared to examinations dating back to 04/11/2015. Evaluation with ultrasound examination is advised. Similar small hyperdense lesions seen in the mid left kidney. Upper pole low-density lesion in right kidney, possibly cortical cyst. This measures 1.7 cm in diameter. No renal calculus or hydronephrosis. VASCULATURE: No evidence of abdominal aortic aneurysm. Inferior vena caval filter noted. BOWEL: Dilatation of multiple small bowel loops in the left abdomen. There is a transition point identified in the left lower quadrant (series 3, image 112). There is no dilatation of the ileum. These findings suggest mechanical bowel obstruction. Followup is advised. Extensive sigmoid diverticulosis without evidence of diverticulitis. Scattered colonic diverticulae are noted elsewhere. APPENDIX: Unremarkable. Normal appendix. PERITONEUM: Unremarkable. No free fluid. No free air. LYMPH NODES: Unremarkable. No enlarged lymph nodes. BLADDER: Nondistended REPRODUCTIVE: Unremarkable uterus BONES: No acute fracture. OTHER FINDINGS: None. IMPRESSION: Probable mechanical small bowel obstruction. Point of transition is identified in the left lower quadrant of the abdomen. Followup advised. There is intra and extrahepatic biliary ductal dilatation. The patient is status post cholecystectomy. Nevertheless, the possibility of biliary obstruction should be considered. Please correlate with laboratory evaluation. Consider evaluation with MRCP.. Sigmoid diverticulosis without evidence of diverticulitis. Several small hyperdense lesions in the left kidney and probable cortical cyst upper pole right kidney. Recommend evaluation on a nonemergent basis with renal ultrasound.
--- NOTE | 2017-02-02 13:52 | CP.PCM.CON ---
<Lucinda Merida - Last Filed: 02/02/17 18:18> History of Present Illness - History of Present Illness History of Present Illness: General Surgery Consult note for Dr. Reeder 66F presents with abdominal pain, admits to nausea, non-bilious non-bloody vomiting and 1 episode of non-bloody loose stool. PMH: HTN, PVD, COPD, lung ca, Parkinson's disease, seizures SHx: Pacemaker, Angioplasty and hiatal hernia repair All: amoxicillin, ciprofloxacin, clavulanic acid, iodine, linezolid, sulfa drugs , tiotropium bromide, seafood Past Patient History - Infectious Disease Hx of Infectious Diseases: None - Tetanus Immunizations Tetanus Immunization: Unknown - Past Social History Smoking Status: Former Smoker - CARDIAC Hx Cardiac Disorders: Yes ([place] 06/09/13, DVT s/p filter) Hx Hypertension: Yes - PULMONARY Hx Chronic Obstructive Pulmonary Disease (COPD): Yes (O2 @ Home) - NEUROLOGICAL HX Cerebrovascular Accident: Yes - HEENT Hx HEENT Problems: No Hx Cataracts: (Unknown) Hx Deafness: Yes ([place]) Hx Difficulty Chewing: No Hx Glaucoma: Yes - RENAL Hx Chronic Kidney Disease: No Hx Dialysis: No - ENDOCRINE/METABOLIC Hx Diabetes Mellitus Type 2: Yes Hx Hypothyroidism: Yes - HEMATOLOGICAL/ONCOLOGICAL Hx Blood Transfusions: Yes Hx Blood Transfusion Reaction: No - INTEGUMENTARY Hx Dermatological Problems: No Other/Comment: bilateral arms eccymotic areas - MUSCULOSKELETAL/RHEUMATOLOGICAL Hx Falls: Yes - GASTROINTESTINAL Hx Gastrointestinal Disorders: Yes (hiatal hernia, umbilical hernia) Hx Diverticulitis: Yes (and diverticulosis) Hx Gastroesophageal Reflux: Yes Hx Liver Failure: No Hx Pancreatitis: Yes HX Swallowing Problems: No - GENITOURINARY/GYNECOLOGICAL Hx Genitourinary Disorders: Yes Hx Incontinence: Yes - PSYCHIATRIC Hx Psychophysiologic Disorder: Yes Hx Anxiety: Yes Hx Depression: Yes Hx Substance Use: No - SURGICAL HISTORY Hx Cholecystectomy: Yes Hx Coronary Stent: Yes (06/09/13) Other/Comment: Hernia Surgery-15 June 2016 - ANESTHESIA Hx Anesthesia Reactions: No Hx Malignant Hyperthermia: No Meds Allergies/Adverse Reactions: Allergies Allergy/AdvReac Type Severity Reaction Status Date / Time amoxicillin [From Augmentin] Allergy RASH Verified 02/02/17 20:38 ciprofloxacin [From Cipro] Allergy RASH Verified 02/02/17 20:38 ciprofloxacin HCl Allergy RASH Verified 02/02/17 20:38 [From Cipro] clavulanic acid Allergy RASH Verified 02/02/17 20:38 [From Augmentin] iodine Allergy RASH Verified 02/02/17 20:38 linezolid [From Zyvox] Allergy REDNESS Verified 02/02/17 20:38 Sulfa (Sulfonamide Allergy RASH Verified 02/02/17 20:38 Antibiotics) tiotropium bromide Allergy RASH Verified 02/02/17 20:38 [From Spiriva with HandiHaler] seafood Allergy RASH Uncoded 02/02/17 20:38 - Medications Medications: Current Medications Alprazolam (Xanax) 0.5 mg PO BID SALLY PRN Reason: Protocol Sodium Chloride (Sodium Chloride 0.9%) 1,000 mls @ 100 mls/hr IV .Q10H STA Stop: 02/02/17 21:35 Last Admin: 02/02/17 11:43 Dose: 100 mls/hr Levalbuterol HCl (Xopenex) 0.63 mg IH Q6H SALLY Ondansetron HCl (Zofran Inj) 4 mg IVP Q6H PRN PRN Reason: Nausea/Vomiting Pantoprazole Sodium (Protonix Inj) 40 mg IVP DAILY SALLY Physical Exam - Constitutional Appears: Non-toxic - Head Exam Head Exam: NORMAL INSPECTION - Eye Exam Eye Exam: EOMI, Normal appearance - ENT Exam ENT Exam: Mucous Membranes Moist - Neck Exam Neck exam: Positive for: Full Rom - Respiratory Exam Respiratory Exam: Clear to Auscultation Bilateral, NORMAL BREATHING PATTERN. absent: Accessory Muscle Use, Respiratory Distress - Cardiovascular Exam Cardiovascular Exam: REGULAR RHYTHM. absent: Bradycardia, Tachycardia - GI/Abdominal Exam GI & Abdominal Exam: Guarding, Normal Bowel Sounds, Soft. absent: Hyperactive Bowel Sounds, Rigid, Tenderness - Extremities Exam Extremities exam: Positive for: full ROM. Negative for: pedal edema - Neurological Exam Neurological exam: Alert, Oriented x3, Reflexes Normal - Psychiatric Exam Psychiatric exam: Normal Affect, Normal Mood - Skin Skin Exam: Dry, Intact, Normal Color, Warm Results - Vital Signs Recent Vital Signs: Last Vital Signs Temp 98.4 F 02/02/17 11:06 Pulse 84 02/02/17 12:51 Resp 20 02/02/17 12:51 BP 132/74 02/02/17 12:51 Pulse Ox 98 02/02/17 12:51 - Labs Result Diagrams: 02/02/17 11:34 02/02/17 11:34 Labs: Laboratory Results - last 24 hr 02/02/17 02/02/17 02/02/17 11:21 11:34 11:34 WBC 12.5 H RBC 4.64 Hgb 14.6 Hct 43.8 MCV 94.4 MCH 31.5 MCHC 33.3 RDW 14.8 H Plt Count 255 MPV 10.8 Gran % 72.7 H Lymph % (Auto) 17.3 L [place] % (Auto) 8.9 H Eos % (Auto) 1.0 L Baso % (Auto) 0.1 Gran # 9.05 H Lymph # 2.2 Harper # 1.1 H Eos # 0.1 Baso # 0.01 Sodium 144 Potassium 3.9 Chloride 101 Carbon Dioxide 30 Anion Gap 17 BUN 21 Creatinine 0.6 Est GFR ( Amer) > 60 Est GFR (Non-Af Amer) > 60 POC Glucose (mg/dL) 114 H Random Glucose 91 Lactic Acid Calcium 9.6 Total Bilirubin 0.8 AST 24 ALT 27 Alkaline Phosphatase 76 Lactate Dehydrogenase 533 Total Creatine Kinase 64 Troponin I < 0.01 Total Protein 7.3 Albumin 4.8 Globulin 2.5 Albumin/Globulin Ratio 1.9 H Amylase 80 Lipase 155 02/02/17 12:00 WBC RBC Hgb Hct MCV MCH MCHC RDW Plt Count MPV Gran % Lymph % (Auto) [place] % (Auto) Eos % (Auto) Baso % (Auto) Gran # Lymph # Harper # Eos # Baso # Sodium Potassium Chloride Carbon Dioxide Anion Gap BUN Creatinine Est GFR ( Amer) Est GFR (Non-Af Amer) POC Glucose (mg/dL) Random Glucose Lactic Acid 1.2 Calcium Total Bilirubin AST ALT Alkaline Phosphatase Lactate Dehydrogenase Total Creatine Kinase Troponin I Total Protein Albumin Globulin Albumin/Globulin Ratio Amylase Lipase Assessment & Plan - Assessment and Plan (Free Text) Assessment: 66F presents with bowel obstruction Plan: NGT placement to low CWS IVF c/w current medical management monitor I/Os encourage exercise/ambulation Lucinda Merida DO PGY1 - Date & Time Date: 02/02/17 Time: 14:08 <Martin Reeder - Last Filed: 02/04/17 11:33> Meds - Medications Medications: Current Medications Alprazolam (Xanax) 0.5 mg PO BID PRN; Protocol PRN Reason: Anxiety Aspirin (Ecotrin) 81 mg PO DAILY [facility] Last Admin: 02/04/17 09:15 Dose: 81 mg Atorvastatin Calcium (Lipitor) 10 mg PO DIN SALLY Hydromorphone HCl (Dilaudid) 0.5 mg IVP Q6H PRN PRN Reason: Pain, severe (8-10) Last Admin: 02/04/17 10:19 Dose: 0.5 mg Metronidazole (Flagyl) 500 mg in 100 mls @ 100 mls/hr IVPB Q8H SALLY PRN Reason: Protocol Last Admin: 02/04/17 10:22 Dose: 100 mls/hr Lactated Ringer's (Lactated Ringer's) 1,000 mls @ 150 mls/hr IV .Q6H40M [facility] Last Admin: 02/03/17 21:58 Dose: 150 mls/hr Levalbuterol HCl (Xopenex) 0.63 mg IH Q6H [facility] Last Admin: 02/04/17 07:50 Dose: 0.63 mg Levothyroxine Sodium (Synthroid) 112 mcg PO ACB [facility] Last Admin: 02/04/17 09:19 Dose: 112 mcg Levothyroxine Sodium (Synthroid) 25 mcg PO ACB [facility] Last Admin: 02/04/17 09:19 Dose: 25 mcg Methylprednisolone (Solu-Medrol) 20 mg IVP Q8 [facility] Last Admin: 02/04/17 05:53 Dose: 20 mg Metoprolol Succinate (Toprol Xl) 25 mg PO DAILY [facility] Last Admin: 02/04/17 09:16 Dose: 25 mg Non-Formulary Medication (Diclofenac Sodium [Voltaren]) 1 appl TP TID [facility] Last Admin: 02/04/17 10:23 Dose: Not Given Ondansetron HCl (Zofran Inj) 4 mg IVP Q6H PRN PRN Reason: Nausea/Vomiting Last Admin: 02/04/17 10:19 Dose: 4 mg Pantoprazole Sodium (Protonix Inj) 40 mg IVP DAILY [facility] Last Admin: 02/04/17 09:15 Dose: 40 mg Results - Vital Signs Recent Vital Signs: Last Vital Signs Temp 97.9 F 02/04/17 08:43 Pulse 75 09/14/17 09:16 Resp 21 02/04/17 08:43 BP 110/53 L 02/04/17 09:16 Pulse Ox 98 02/03/17 16:00 - Labs Result Diagrams: 02/04/17 06:00 02/04/17 06:00 Labs: Laboratory Results - last 24 hr 02/03/17 02/03/17 02/03/17 06:52 15:36 21:40 WBC RBC Hgb Hct MCV MCH MCHC RDW Plt Count MPV Sodium Potassium Chloride Carbon Dioxide Anion Gap BUN Creatinine Est GFR ( Amer) Est GFR (Non-Af Amer) POC Glucose (mg/dL) 73 111 H Random Glucose Calcium Total Bilirubin AST ALT Alkaline Phosphatase Total Protein Albumin Globulin Albumin/Globulin Ratio Procalcitonin 0.22 02/04/17 02/04/17 02/04/17 06:00 06:00 07:27 WBC 6.1 RBC 3.76 Hgb 11.3 L Hct 34.9 L MCV 92.8 MCH 30.1 MCHC 32.4 RDW 14.0 Plt Count 205 MPV 10.3 Sodium 142 Potassium 3.9 Chloride 106 Carbon Dioxide 26 Anion Gap 14 BUN 14 Creatinine 0.4 L Est GFR ( Amer) > 60 Est GFR (Non-Af Amer) > 60 POC Glucose (mg/dL) 117 H Random Glucose 115 H Calcium 8.6 Total Bilirubin 0.7 AST 27 ALT 41 Alkaline Phosphatase 73 Total Protein 6.0 Albumin 3.4 Globulin 2.6 Albumin/Globulin Ratio 1.3 Procalcitonin Assessment & Plan - Assessment and Plan (Free Text) Assessment: Dx PSBO COBPD Hypothyroid Cons Rx: IV/NGT/Ab Consult done under my direct supervision NB NO Pacemaker(IVC FILTER!) Akil Del Castillo MD FACS
--- NOTE | 2017-02-02 14:06 | RAD ---
PROCEDURE: CHEST RADIOGRAPH, 1 VIEW HISTORY: abd pain, vomiting COMPARISON: 08/07/2016 FINDINGS: LUNGS: Clear. PLEURA: No pneumothorax or pleural fluid seen. CARDIOVASCULAR: Normal. OSSEOUS STRUCTURES: No significant abnormalities. VISUALIZED UPPER ABDOMEN: Normal. OTHER FINDINGS: None. IMPRESSION: No active disease.
[2017-02-02] MEDS: Levalbuterol 0.63 MG/3 ML Inhal Soln UD IH SCH ×2 (14:39→20:05)
[2017-02-02] MEDS ORDERED: MethylPREDNISolone 40 mg Vial IVP SCH (18:30)
[2017-02-02] MEDS: HYDROmorphone 0.5 mg/0.5 ml ISec IVP PRN (19:45)
[2017-02-02 21:00] VITALS: BMI 26.1
[2017-02-02] MEDS ORDERED: Pneumococcal 23-Valent Vaccine IM ONE (21:00)
[2017-02-02] MEDS: metroNIDAZOLE IV 500 mg/100 ml 500 MG/100 ML BAG IVPB SCH (21:11)
[2017-02-02] MEDS: MethylPREDNISolone 40 mg Vial IVP SCH (21:17)
--- NOTE | 2017-02-02 21:31 | HP ---
HISTORY OF PRESENT ILLNESS: The patient is 66-year-old, came to emergency room because of intractable nausea, abdominal discomfort, cramping that started this morning. The patient states she cannot hold any food, was having periumbilical discomfort, so she came to emergency room for further evaluation. The patient had similar episode almost 3 months ago, but that resolved itself. She has partial small-bowel obstruction, but got treated with conservative treatment. Denies any fever or chills. No history of hemoptysis. No hematemesis. No fever, cough or congestion. PAST MEDICAL HISTORY: She has significant past medical history for: 1. COPD. 2. Status post ventral hernia repair, complicated by wound infection and had revision of her abdominal wound done. 3. Chronic degenerative disc disease. 4. Coronary artery disease, status post angioplasty. She had cardiac cath done in July of 2016. 5. Gastroesophageal reflux disease. 6. Hypertension. ALLERGIES: SHE HAS MULTIPLE ALLERGIES INCLUDIN. CIPRO. 2. SPIRIVA. 3. SULFA-BASED MEDICATION. 4. IODINE. MEDICATIONS AT HOME: She is on Claritin 10 mg daily. She is on Zocor 10 mg daily, potassium 20 mEq daily, MiraLax 17 g daily, Protonix 40 daily, metoprolol 25 daily, lisinopril 5 mg daily, levothyroxine 137 mcg daily, Xopenex every 6 hours. She is on vitamin D supplementation. She is on Voltaren Gel. SOCIAL HISTORY: She lives with her boyfriend. Has quit smoking, she used to be heavy smoker whole her life, quit couple of years ago. REVIEW OF SYSTEMS: Significant for nausea and abdominal discomfort. PHYSICAL EXAMINATION GENERAL: She is awake and alert, able to give history, complains of abdominal discomfort. VITAL SIGNS: She is afebrile, pulse 80, respiration 20, blood pressure 102/49. LUNGS: Bilateral fair air flow, diffusely decreased breath sound. HEART: S1 and S2 audible. ABDOMEN: Soft. Slight epigastric and periumbilical discomfort. No guarding or rebounding. NEUROLOGICALLY: She is awake and alert and communicative. EXTREMITIES: Bilateral legs, no edema. LABORATORY EXAM: WBCs 12.5, hemoglobin 14.6, hematocrit 43.8, platelet 255. Chemistry: Sodium 144, potassium 3.9, chloride 101, CO2 of 30, BUN 21, creatinine 0.6, blood sugar 91. She had CT scan of the abdomen and pelvis done that shows mechanical small-bowel obstruction, point of transition is the left lower quadrant of abdomen. ASSESSMENT AND PLAN: 1. Intractable nausea. 2. Partial small-bowel obstruction. 3. History of hypertension. 4. Chronic obstructive pulmonary disease. 5. Hyperlipidemia. 6. Coronary artery disease. PLAN: We will keep the patient n.p.o. We will give her Zofran. We will start her on Protonix and Xanax as needed. She has been started on IV fluid, keep her n.p.o. She is on nasogastric tube suction. We will follow up her electrolyte and reevaluate the patient in a.m. Lori Aguila MD
[2017-02-03] MEDS ORDERED: Lactated Ringer's 1,000 ML IV SCH ×2 (00:39→11:06)
[2017-02-03] MEDS: HYDROmorphone 0.5 mg/0.5 ml ISec IVP PRN ×3 (03:51→17:29)
[2017-02-03] MEDS: MethylPREDNISolone 40 mg Vial IVP SCH ×3 (05:44→21:57)
[2017-02-03] MEDS: metroNIDAZOLE IV 500 mg/100 ml 500 MG/100 ML BAG IVPB SCH ×3 (05:47→17:30)
[2017-02-03 07:04] LABS: BASO # 0.01 K/mm3 (0.0-2.0); BASO % 0.2 % (0.0-3.0); EOS # 0.1 (0.0-0.7); EOS % 1.4 % (1.5-5.0); GRAN # 3.32 (1.4-6.5); HEMATOCRIT 36.6 % (36.0-48.0); LYMPH # 2.2 (1.2-3.4); LYMPH % 34.9 % (22.0-35.0); MEAN CELL VOLUME 95.3 fl (80.0-105.0); MEAN CORPUSCULAR HEMOGLOBIN 30.2 pg (25.0-35.0); MEAN CORPUSCULAR HGB CONC 31.7 g/dl (31.0-37.0); MEAN PLATELET VOLUME 10.4 fl (7.0-11.0); MONO # 0.7 (0.1-0.6); MONO % 10.5 % (1.0-6.0); WHITE BLOOD COUNT 6.3 10^3/ul (4.5-11.0)
[2017-02-03 07:22] LABS: FREE T4 0.96 ng/dL (0.78-2.19)
[2017-02-03 07:36] LABS: THYROID STIMULATING HORMONE 2.16 mIU/mL (0.46-4.68)
[2017-02-03 07:37] LABS: ALB/GLOB RATIO 1.5 (1.1-1.8); ALKALINE PHOSPHATASE 81 U/L (38-126); ALT/SGPT 50 U/L (7-56); AST/SGOT 42 U/L (14-36); BILIRUBIN,TOTAL 0.9 mg/dL (0.2-1.3); BLOOD UREA NITROGEN 25 mg/dL (7-21); CALCIUM 8.5 mg/dL (8.4-10.5); CARBON DIOXIDE 29 mmol/L (21-33); CHLORIDE 105 mmol/L (98-107); GFR AFRICAN-AMERICAN > 60; GLUCOSE,RANDOM 82 mg/dL (70-110); PHOSPHOROUS 3.5 mg/dL (2.5-4.5); POTASSIUM 4.4 mmol/L (3.6-5.0); SODIUM 144 mmol/L (132-148)
[2017-02-03] MEDS: Levalbuterol 0.63 MG/3 ML Inhal Soln UD IH SCH ×4 (07:53→19:57)
--- NOTE | 2017-02-03 08:26 | CP.PCM.PN ---
Subjective - Date & Time of Evaluation Date of Evaluation: 02/03/17 Time of Evaluation: 08:22 - Subjective Subjective: General Surgery Progress note for Dr. Reeedr PT seen and examined at bedside. [place]. Patient states no vomiting. Admits to nausea. denies diarrhea, BM. admits to flatus. Patient reiterates that she does not want an NGT Objective - Vital Signs/Intake and Output Vital Signs (last 24 hours): Temp Pulse Resp BP Pulse Ox 98.9 F 88 20 102/49 L 100 02/02/17 20:39 02/02/17 20:39 02/02/17 20:39 02/02/17 20:39 02/02/17 16:33 Intake and Output: 02/03/17 02/03/17 06:59 18:59 Intake Total 1380 Output Total 525 Balance 855 - Medications Medications: Current Medications Alprazolam (Xanax) 0.5 mg PO BID [facility] PRN Reason: Protocol Last Admin: 02/02/17 17:24 Dose: Not Given Aspirin (Ecotrin) 81 mg PO DAILY [facility] Atorvastatin Calcium (Lipitor) 10 mg PO DIN [facility] Hydromorphone HCl (Dilaudid) 0.5 mg IVP Q6H PRN PRN Reason: Pain, severe (8-10) Last Admin: 02/03/17 03:51 Dose: 0.5 mg Metronidazole (Flagyl) 500 mg in 100 mls @ 100 mls/hr IVPB Q8H [facility] PRN Reason: Protocol Last Admin: 02/03/17 05:47 Dose: 100 mls/hr Lactated Ringer's (Lactated Ringer's) 1,000 mls @ 110 mls/hr IV .Q9H6M [facility] Last Admin: 02/03/17 00:49 Dose: 110 mls/hr Levalbuterol HCl (Xopenex) 0.63 mg IH Q6H [facility] Last Admin: 02/03/17 07:53 Dose: Not Given Levothyroxine Sodium (Synthroid) 112 mcg PO ACB [facility] Levothyroxine Sodium (Synthroid) 25 mcg PO ACB [facility] Methylprednisolone (Solu-Medrol) 20 mg IVP Q8 [facility] Last Admin: 02/03/17 05:44 Dose: 20 mg Metoprolol Succinate (Toprol Xl) 25 mg PO DAILY [facility] Non-Formulary Medication (Diclofenac Sodium [Voltaren]) 1 appl TP TID [facility] Ondansetron HCl (Zofran Inj) 4 mg IVP Q6H PRN PRN Reason: Nausea/Vomiting Last Admin: 02/03/17 06:46 Dose: 4 mg Pantoprazole Sodium (Protonix Inj) 40 mg IVP DAILY [facility] - Labs Labs: 02/03/17 06:52 02/03/17 06:52 - Constitutional Appears: Non-toxic - Head Exam Head Exam: NORMAL INSPECTION - Eye Exam Eye Exam: EOMI, Normal appearance - ENT Exam ENT Exam: Mucous Membranes Moist - Neck Exam Neck Exam: Full ROM - Respiratory Exam Respiratory Exam: absent: Accessory Muscle Use, Respiratory Distress Additional comments: no change - Cardiovascular Exam Cardiovascular Exam: REGULAR RHYTHM. absent: Bradycardia, Tachycardia - GI/Abdominal Exam GI & Abdominal Exam: Soft, Tenderness Additional comments: less tender than yesterday - Extremities Exam Extremities Exam: Full ROM, Normal Inspection. absent: Pedal Edema - Neurological Exam Neurological Exam: Alert, Awake, Oriented x3 - Psychiatric Exam Psychiatric exam: Normal Affect, Normal Mood - Skin Skin Exam: Dry, Intact, Normal Color, Warm Assessment and Plan - Assessment and Plan (Free Text) Assessment: 66F presents with bowel obstruction Plan: LR @ 110 NPO except medications PTX/Pepcid continue home medications 20mg Solumedrol Zofran I&Os f/u CBC, CMP daily Lucinda Merida DO PGY1
[2017-02-03 09:58] LABS: PH,URINE 5.5 (4.7-8.0); URINE BILIRUBIN NEGATIVE (NEGATIVE); URINE BLOOD NEGATIVE (NEGATIVE); URINE GLUCOSE (UA) NEGATIVE (NEGATIVE); URINE KETONE TRACE mg/dL (NEGATIVE); URINE LEUKOCYTE ESTERASE NEGATIVE Leu/uL (NEGATIVE); URINE PROTEIN NEGATIVE mg/dL (<30 mg/dL); URINE UROBILINOGEN 0.2 E.U./dL (<1 E.U./dL)
[2017-02-03 09:59] LABS: URINE APPEARANCE CLEAR (CLEAR); URINE COLOR YELLOW (YELLOW)
--- NOTE | 2017-02-03 10:22 | CARD ---
APPROVED REPORT EKG Measurement Heart [id number] <Conclusion> Sinus tachycardia with occasional premature ventricular complexes Possible Left atrial enlargement Right bundle branch block Left anterior fascicular block Bifascicular block Left ventricular hypertrophy with repolarization abnormality Abnormal ECG
[2017-02-03] MEDS: DICLOFENAC SODIUM APPL TP SCH ×3 (10:40→17:29)
[2017-02-03] MEDS: Metoprolol Succinate 25 mg XL Tab PO SCH (10:41)
--- NOTE | 2017-02-03 11:33 | CP.PCM.PCO ---
Physician Communication Note - Physician Communication Note Physician Communication Note: Improving without NGT/HgB11(14yesterday)/No surgery anticipated
--- NOTE | 2017-02-03 12:53 | RAD ---
HISTORY: upright for bowel upstruction COMPARISON: No prior. FINDINGS: BOWEL: Normal. No obstruction. No free air. BONES: Normal. OTHER FINDINGS: A caval filter is seen IMPRESSION: No acute findings
--- NOTE | 2017-02-03 15:13 | PN ---
SUBJECTIVE: The patient is a 66 years old, seen and examined, lying in bed, seems to be comfortable. She said cramps are much better. She still has epigastric discomfort; feels nauseous; does not have appetite. PHYSICAL EXAMINATION: VITAL SIGNS: She is afebrile, pulse 73, respirations 20, and blood pressure 115/58. LUNGS: Bilateral fair air flow. No rhonchi or crackles. HEART: S1 and S2, audible. ABDOMEN: Soft, nontender. No rebound. No guarding. NEUROLOGIC: She is awake and alert, able to communicate, moves all extremities. LABORATORY DATA: WBC is 6.3, hemoglobin 11.6, hematocrit 36, platelet 188. Chemistry: Sodium 144, potassium 4.4, chloride 105, carbon dioxide 29, BUN 25, creatinine 0.6. Blood sugar of 82. ASSESSMENT: 1. Partial small-bowel obstruction, status post intractable nausea and vomiting, seems to be improving. 2. History of ventral hernia repair, followed by revision and removal of infected mesh. 3. Coronary artery disease. 4. Hypertension. 5. Hyperlipidemia. 6. Chronic obstructive pulmonary disease. PLAN: We will continue the patient on current medical treatment. She is still n.p.o., we will keep her on IV fluid. Followup her electrolyte in a.m. Lori Aguila MD
--- NOTE | 2017-02-03 22:09 | CP.PCM.PN ---
Subjective - Date & Time of Evaluation Date of Evaluation: 02/03/17 Time of Evaluation: 22:08 - Subjective Subjective: Patient was seen at bedside.As per nurse, has headache, BP 135/66, HR 83/min. Complained of head ache, is mild, frontal and in the vertex , does not get headache usually. Has no other complaints. Denies history of head injury, no eye symptoms, has difficulty in hearing in left ear, sinuses bothers her sometimes, states that she had history of polio, denies nausea, paraesthesia, dizziness, weakness. Medical reocord was reviewed. This 66 year old white woman was admitted with intractable nausea, abdominal discomfort , cramping/SBO. Has PMH of HTN,COPD,GERD, CAD, S/P angioplasty, chronic degenerative disc disease. Objective - Vital Signs/Intake and Output Vital Signs (last 24 hours): Temp Pulse Resp BP Pulse Ox 98.3 F 70 20 124/61 98 02/03/17 16:00 02/03/17 16:00 02/03/17 16:00 02/03/17 16:00 02/03/17 16:00 - Medications Medications: Current Medications Alprazolam (Xanax) 0.5 mg PO BID PRN; Protocol PRN Reason: Anxiety Aspirin (Ecotrin) 81 mg PO DAILY [facility] Last Admin: 02/03/17 10:40 Dose: Not Given Atorvastatin Calcium (Lipitor) 10 mg PO DIN [facility] Hydromorphone HCl (Dilaudid) 0.5 mg IVP Q6H PRN PRN Reason: Pain, severe (8-10) Last Admin: 02/03/17 17:29 Dose: 0.5 mg Metronidazole (Flagyl) 500 mg in 100 mls @ 100 mls/hr IVPB Q8H [facility] PRN Reason: Protocol Last Admin: 02/03/17 17:30 Dose: 100 mls/hr Lactated Ringer's (Lactated Ringer's) 1,000 mls @ 150 mls/hr IV .Q6H40M [facility] Last Admin: 02/03/17 21:58 Dose: 150 mls/hr Levalbuterol HCl (Xopenex) 0.63 mg IH Q6H [facility] Last Admin: 02/03/17 19:57 Dose: 0.63 mg Levothyroxine Sodium (Synthroid) 112 mcg PO ACB [facility] Levothyroxine Sodium (Synthroid) 25 mcg PO ACB [facility] Methylprednisolone (Solu-Medrol) 20 mg IVP Q8 [facility] Last Admin: 02/03/17 21:57 Dose: 20 mg Metoprolol Succinate (Toprol Xl) 25 mg PO DAILY [facility] Last Admin: 02/03/17 10:41 Dose: Not Given Non-Formulary Medication (Diclofenac Sodium [Voltaren]) 1 appl TP TID [facility] Last Admin: 02/03/17 17:29 Dose: Not Given Ondansetron HCl (Zofran Inj) 4 mg IVP Q6H PRN PRN Reason: Nausea/Vomiting Last Admin: 02/03/17 17:30 Dose: 4 mg Pantoprazole Sodium (Protonix Inj) 40 mg IVP DAILY [facility] Last Admin: 02/03/17 10:24 Dose: 40 mg - Labs Labs: 02/03/17 06:52 02/03/17 06:52 Laboratory Last Values WBC 6.3 10^3/ul (4.5-11.0) D 02/03/17 06:52 RBC 3.84 10^6/uL (3.5-6.1) 02/03/17 06:52 Hgb 11.6 g/dL (12.0-16.0) L D 02/03/17 06:52 Hct 36.6 % (36.0-48.0) 02/03/17 06:52 MCV 95.3 fl (80.0-105.0) 02/03/17 06:52 MCH 30.2 pg (25.0-35.0) 02/03/17 06:52 MCHC 31.7 g/dl (31.0-37.0) 02/03/17 06:52 RDW 15.0 % (11.5-14.5) H 02/03/17 06:52 Plt Count 188 10^3/uL (120.0-450.0) 02/03/17 06:52 MPV 10.4 fl (7.0-11.0) 02/03/17 06:52 Gran % 53.0 % (50.0-68.0) 02/03/17 06:52 Lymph % (Auto) 34.9 % (22.0-35.0) 02/03/17 06:52 [place] % (Auto) 10.5 % (1.0-6.0) H 02/03/17 06:52 Eos % (Auto) 1.4 % (1.5-5.0) L 02/03/17 06:52 Baso % (Auto) 0.2 % (0.0-3.0) 02/03/17 06:52 Gran # 3.32 (1.4-6.5) 02/03/17 06:52 Lymph # 2.2 (1.2-3.4) 02/03/17 06:52 [place] # 0.7 (0.1-0.6) H 02/03/17 06:52 Eos # 0.1 (0.0-0.7) 02/03/17 06:52 Baso # 0.01 K/mm3 (0.0-2.0) 02/03/17 06:52 Sodium 144 mmol/L (132-148) 02/03/17 06:52 Potassium 4.4 mmol/L (3.6-5.0) 02/03/17 06:52 Chloride 105 mmol/L (98-107) 02/03/17 06:52 Carbon Dioxide 29 mmol/L (21-33) 02/03/17 06:52 Anion Gap 14 (10-20) 02/03/17 06:52 BUN 25 mg/dL (7-21) H 02/03/17 06:52 Creatinine 0.6 mg/dL (0.5-1.4) 02/03/17 06:52 Est GFR ( Amer) > 60 02/03/17 06:52 Est GFR (Non-Af Amer) > 60 02/03/17 06:52 POC Glucose (mg/dL) 111 mg/dL (65-110) H 02/03/17 21:40 Random Glucose 82 mg/dL (70-110) 02/03/17 06:52 Lactic Acid 1.2 mmol/L (0.7-2.1) 02/02/17 12:00 Calcium 8.5 mg/dL (8.4-10.5) 02/03/17 06:52 Phosphorus 3.5 mg/dL (2.5-4.5) 02/03/17 06:52 Magnesium 2.0 mg/dL (1.7-2.2) 02/03/17 06:52 Total Bilirubin 0.9 mg/dL (0.2-1.3) 02/03/17 06:52 AST 42 U/L (14-36) H D 02/03/17 06:52 ALT 50 U/L (7-56) 02/03/17 06:52 Alkaline Phosphatase 81 U/L (38-126) 02/03/17 06:52 Lactate Dehydrogenase 533 U/L (333-699) 02/02/17 11:34 Total Creatine Kinase 64 U/L (35-230) 02/02/17 11:34 Troponin I < 0.01 ng/mL 02/02/17 11:34 Total Protein 6.0 g/dL (5.8-8.3) 02/03/17 06:52 Albumin 3.6 g/dL (3.0-4.8) 02/03/17 06:52 Globulin 2.4 gm/dL 02/03/17 06:52 Albumin/Globulin Ratio 1.5 (1.1-1.8) 02/03/17 06:52 Amylase 80 U/L (35-125) 02/02/17 11:34 Lipase 155 U/L (23-300) 02/02/17 11:34 Procalcitonin 0.22 NG/ML (0.19-0.49) 02/03/17 06:52 Free T4 0.96 ng/dL (0.78-2.19) 02/03/17 06:52 TSH 3rd Generation 2.16 mIU/mL (0.46-4.68) 02/03/17 06:52 Urine Color Yellow (YELLOW) 02/03/17 09:54 Urine Appearance Clear (CLEAR) 02/03/17 09:54 Urine pH 5.5 (4.7-8.0) 02/03/17 09:54 Ur Specific [place] >= 1.030 (1.005-1.035) 02/03/17 09:54 Urine Protein Negative mg/dL (<30 mg/dL) 02/03/17 09:54 Urine Glucose (UA) Negative mg/dL (NEGATIVE) 02/03/17 09:54 Urine Ketones Trace mg/dL (NEGATIVE) H 02/03/17 09:54 Urine Blood Negative (NEGATIVE) 02/03/17 09:54 Urine Nitrate Negative (NEGATIVE) 02/03/17 09:54 Urine Bilirubin Negative (NEGATIVE) 02/03/17 09:54 Urine Urobilinogen 0.2 E.U./dL (<1 E.U./dL) 02/03/17 09:54 Ur Leukocyte Esterase Negative [place]hana/uL (NEGATIVE) 02/03/17 09:54 - Constitutional Appears: Well, No Acute Distress - Head Exam Head Exam: ATRAUMATIC, NORMAL INSPECTION, NORMOCEPHALIC - Eye Exam Eye Exam: Normal appearance - ENT Exam ENT Exam: Normal External Ear Exam - Neck Exam Neck Exam: Normal Inspection - Respiratory Exam Respiratory Exam: NORMAL BREATHING PATTERN - Cardiovascular Exam Cardiovascular Exam: absent: JVD - GI/Abdominal Exam GI & Abdominal Exam: absent: Distended - Exam Additional comments: Deferred. - Extremities Exam Extremities Exam: Normal Inspection - Back Exam Back Exam: NORMAL INSPECTION - Neurological Exam Neurological Exam: Alert, Oriented x3 - Psychiatric Exam Psychiatric exam: Normal Affect, Normal Mood - Skin Skin Exam: Warm Assessment and Plan - Assessment and Plan (Free Text) Assessment: Headache. HTN. CAD. S/P angioplasty. COPD. GERD. Chronic degenerative disc disease. Plan: Tylenol 650 mg PO stat. Continue present management.
[2017-02-04] MEDS: metroNIDAZOLE IV 500 mg/100 ml 500 MG/100 ML BAG IVPB SCH ×2 (02:11→10:22)
[2017-02-04] MEDS: Levalbuterol 0.63 MG/3 ML Inhal Soln UD IH SCH ×4 (02:11→19:24)
[2017-02-04] MEDS: HYDROmorphone 0.5 mg/0.5 ml ISec IVP PRN ×2 (04:15→10:19)
[2017-02-04] MEDS: MethylPREDNISolone 40 mg Vial IVP SCH ×3 (05:53→21:01)
[2017-02-04 06:22] LABS: HEMATOCRIT 34.9 % (36.0-48.0); MEAN CELL VOLUME 92.8 fl (80.0-105.0); MEAN CORPUSCULAR HEMOGLOBIN 30.1 pg (25.0-35.0); MEAN CORPUSCULAR HGB CONC 32.4 g/dl (31.0-37.0); MEAN PLATELET VOLUME 10.3 fl (7.0-11.0); WHITE BLOOD COUNT 6.1 10^3/ul (4.5-11.0)
[2017-02-04 06:47] LABS: ALB/GLOB RATIO 1.3 (1.1-1.8); ALKALINE PHOSPHATASE 73 U/L (38-126); ALT/SGPT 41 U/L (7-56); AST/SGOT 27 U/L (14-36); BILIRUBIN,TOTAL 0.7 mg/dL (0.2-1.3); BLOOD UREA NITROGEN 14 mg/dL (7-21); CALCIUM 8.6 mg/dL (8.4-10.5); CARBON DIOXIDE 26 mmol/L (21-33); CHLORIDE 106 mmol/L (95-110); GFR AFRICAN-AMERICAN > 60; GLUCOSE,RANDOM 115 mg/dL (70-110); POTASSIUM 3.9 mmol/L (3.6-5.0); SODIUM 142 mmol/L (132-148)
[2017-02-04] MEDS: Metoprolol Succinate 25 mg XL Tab PO SCH (09:16)
[2017-02-04] MEDS: Levothyroxine 112 MCG TAB PO SCH (09:19)
[2017-02-04] MEDS: Levothyroxine 25 MCG TAB PO SCH (09:19)
[2017-02-04] MEDS: DICLOFENAC SODIUM APPL TP SCH ×3 (10:23→18:19)
--- NOTE | 2017-02-04 11:28 | CP.PCM.PCO ---
Physician Communication Note - Physician Communication Note Physician Communication Note: + BM/Rx progress [id number]
[2017-02-04] MEDS ORDERED: Barium Sulfate for Susp 96% w/w 176g Bottle PR ONE (12:03)
--- NOTE | 2017-02-04 12:09 | CP.PCM.PN ---
Subjective - Date & Time of Evaluation Date of Evaluation: 02/04/17 Time of Evaluation: 12:06 - Subjective Subjective: General Surgery progress note for Dr. Reeder Patient states she had a bowel movement. Patient states she's feeling better and wants to eat and go home. Patient denies f/c/, n/v, constipation. Patient still has abdominal pain, but is tolerating it better. Objective - Vital Signs/Intake and Output Vital Signs (last 24 hours): Temp Pulse Resp BP Pulse Ox 97.9 F 75 21 110/53 L 98 02/04/17 08:43 02/04/17 09:16 02/04/17 08:43 02/04/17 09:16 02/03/17 16:00 Intake and Output: 02/04/17 02/04/17 06:59 18:59 Intake Total 1650 0 Output Total 450 Balance 1200 0 - Medications Medications: Current Medications Alprazolam (Xanax) 0.5 mg PO BID PRN; Protocol PRN Reason: Anxiety Aspirin (Ecotrin) 81 mg PO DAILY [facility] Last Admin: 02/04/17 09:15 Dose: 81 mg Atorvastatin Calcium (Lipitor) 10 mg PO DIN [facility] Hydromorphone HCl (Dilaudid) 0.5 mg IVP Q6H PRN PRN Reason: Pain, severe (8-10) Last Admin: 02/04/17 10:19 Dose: 0.5 mg Levalbuterol HCl (Xopenex) 0.63 mg IH Q6H [facility] Last Admin: 02/04/17 07:50 Dose: 0.63 mg Levothyroxine Sodium (Synthroid) 112 mcg PO ACB [facility] Last Admin: 02/04/17 09:19 Dose: 112 mcg Levothyroxine Sodium (Synthroid) 25 mcg PO ACB [facility] Last Admin: 02/04/17 09:19 Dose: 25 mcg Methylprednisolone (Solu-Medrol) 20 mg IVP Q8 [facility] Last Admin: 02/04/17 05:53 Dose: 20 mg Metoprolol Succinate (Toprol Xl) 25 mg PO DAILY [facility] Last Admin: 02/04/17 09:16 Dose: 25 mg Non-Formulary Medication (Diclofenac Sodium [Voltaren]) 1 appl TP TID [facility] Last Admin: 02/04/17 10:23 Dose: Not Given Ondansetron HCl (Zofran Inj) 4 mg IVP Q6H PRN PRN Reason: Nausea/Vomiting Last Admin: 02/04/17 10:19 Dose: 4 mg Pantoprazole Sodium (Protonix Inj) 40 mg IVP DAILY [facility] Last Admin: 02/04/17 09:15 Dose: 40 mg - Labs Labs: 02/04/17 06:00 02/04/17 06:00 - Constitutional Appears: No Acute Distress - Head Exam Head Exam: NORMAL INSPECTION - Eye Exam Eye Exam: EOMI, Normal appearance - ENT Exam ENT Exam: Mucous Membranes Moist - Neck Exam Neck Exam: Full ROM, Normal Inspection - Respiratory Exam Respiratory Exam: Clear to Ausculation Bilateral, NORMAL BREATHING PATTERN. absent: Accessory Muscle Use, Respiratory Distress - Cardiovascular Exam Cardiovascular Exam: REGULAR RHYTHM. absent: Bradycardia, Tachycardia - GI/Abdominal Exam GI & Abdominal Exam: Soft, Tenderness, Normal Bowel Sounds. absent: Diminished Bowel Sounds, Rebound Additional comments: no rebound. tenderness in right lower quadrant. - Extremities Exam Extremities Exam: Full ROM, Normal Inspection. absent: Joint Swelling, Pedal Edema - Neurological Exam Neurological Exam: Alert, Awake, Normal Gait Assessment and Plan - Assessment and Plan (Free Text) Assessment: 66F with bowel obstruction Plan: diet: advanced to soft diet, will advance to regular if tolerated strict I/Os, weight, monitor BMs monitor CBC, CMP monitor diet tolerance discontinued ABX d/w Dr. Varinder Merida, DO PGY1
--- NOTE | 2017-02-04 13:24 | PN ---
SUBJECTIVE: The patient is a 66 years old, seen and examined. She states she feel lot better; still feels nauseous. No abdominal cramping or documented vomiting. No fever or chills. PHYSICAL EXAMINATION: VITAL SIGNS: She is afebrile, pulse 75, respirations 21, and blood pressure 110/53. LUNGS: Bilateral fair air flow. No rhonchi or crackles. HEART: S1 and S2, audible. ABDOMEN: Soft, slight epigastric discomfort. No rebound. No guarding. NEUROLOGIC: She is awake and alert, able to communicate. LABORATORY DATA: WBC is 6.1, hemoglobin 11.3, hematocrit 34.9, platelet 205. Chemistry: Sodium 142, potassium 3.9, chloride 106, carbon dioxide 26, BUN 14, creatinine 0.4. Blood sugar of 146. ASSESSMENT: 1. Partial small-bowel obstruction. 2. Status post intractable nausea and vomiting. 3. Coronary artery disease. 4. Hypertension. 5. Hyperlipidemia. 6. Chronic obstructive pulmonary disease, stable. PLAN: We will continue the patient on IV fluid. She is going for small bowel series. We will follow that. She has been started on liquid diet, will be advanced after we have small bowel series result available. Lori Aguila MD
--- NOTE | 2017-02-04 14:03 | RAD ---
PROCEDURE: Small bowel series HISTORY: PSBO Recurrent COMPARISON: TECHNIQUE: A single contrast study was performed. Eight images were submitted FINDINGS: The small bowel is normal in caliber. The mucosal pattern is normal. There is no evidence of obstruction. Contrast reaches the colon within 1 hour and 15 minutes. The terminal ileum is normal. IMPRESSION: Negative study
[2017-02-04] MEDS ORDERED: DiphenhydrAMINE 50 mg/ml Inj IVP STA (17:01)
[2017-02-05] MEDS: Levalbuterol 0.63 MG/3 ML Inhal Soln UD IH SCH ×3 (01:36→13:18)
[2017-02-05] MEDS: MethylPREDNISolone 40 mg Vial IVP SCH (05:06)
[2017-02-05] MEDS ORDERED: Pantoprazole 40 mg EC Tab PO SCH (06:00)
[2017-02-05] MEDS: Levothyroxine 112 MCG TAB PO SCH (08:09)
[2017-02-05] MEDS: Levothyroxine 25 MCG TAB PO SCH (08:09)
[2017-02-05 08:24] VITALS: BP 125/55; PULSE 68; RESP 21; TEMP 98; O2SAT 98
[2017-02-05] MEDS: Metoprolol Succinate 25 mg XL Tab PO SCH (09:08)
[2017-02-05] MEDS: DICLOFENAC SODIUM APPL TP SCH (09:09)
--- NOTE | 2017-02-05 09:34 | CP.PCM.PN ---
Subjective - Date & Time of Evaluation Date of Evaluation: 02/05/17 Time of Evaluation: 09:31 - Subjective Subjective: General Surgery progress note for Dr. Reeder Patient states she had a bowel movement. Patient states she's feeling better and wants to eat and go home. Patient denies f/c/, n/v, constipation. Patient is tolerating pain. Patient tolerating pureed/soft food. Patient is walking around. Objective - Vital Signs/Intake and Output Vital Signs (last 24 hours): Temp Pulse Resp BP Pulse Ox 98 F 68 21 125/55 L 98 02/05/17 08:23 02/05/17 09:08 02/05/17 08:23 02/05/17 09:08 02/05/17 08:23 Intake and Output: 02/05/17 02/05/17 06:59 18:59 Intake Total 1780 Balance 1780 - Medications Medications: Current Medications Alprazolam (Xanax) 0.5 mg PO BID PRN; Protocol PRN Reason: Anxiety Last Admin: 02/04/17 20:59 Dose: 0.5 mg Aspirin (Ecotrin) 81 mg PO DAILY [facility] Last Admin: 02/05/17 09:08 Dose: 81 mg Atorvastatin Calcium (Lipitor) 10 mg PO DIN [facility] Last Admin: 02/04/17 16:48 Dose: 10 mg Ketorolac Tromethamine (Toradol) 15 mg IVP Q6 PRN PRN Reason: Pain, moderate (4-7) Last Admin: 02/04/17 23:24 Dose: 15 mg Levalbuterol HCl (Xopenex) 0.63 mg IH Q6H [facility] Last Admin: 02/05/17 07:52 Dose: 0.63 mg Levothyroxine Sodium (Synthroid) 112 mcg PO ACB [facility] Last Admin: 02/05/17 08:09 Dose: 112 mcg Levothyroxine Sodium (Synthroid) 25 mcg PO ACB [facility] Last Admin: 02/05/17 08:09 Dose: 25 mcg Methylprednisolone (Solu-Medrol) 20 mg IVP Q8 [facility] Last Admin: 02/05/17 05:06 Dose: 20 mg Metoprolol Succinate (Toprol Xl) 25 mg PO DAILY [facility] Last Admin: 02/05/17 09:08 Dose: 25 mg Non-Formulary Medication (Diclofenac Sodium [Voltaren]) 1 appl TP TID [facility] Last Admin: 02/05/17 09:09 Dose: Not Given Ondansetron HCl (Zofran Inj) 4 mg IVP Q6H PRN PRN Reason: Nausea/Vomiting Last Admin: 02/04/17 10:19 Dose: 4 mg Pantoprazole Sodium (Protonix Ec Tab) 40 mg PO 0600 [facility] Last Admin: 02/05/17 05:06 Dose: 40 mg - Labs Labs: 02/04/17 06:00 02/04/17 06:00 - Constitutional Appears: Non-toxic - Head Exam Head Exam: NORMAL INSPECTION - Eye Exam Eye Exam: EOMI, Normal appearance - ENT Exam ENT Exam: Mucous Membranes Moist - Neck Exam Neck Exam: Full ROM - Respiratory Exam Respiratory Exam: Clear to Ausculation Bilateral, NORMAL BREATHING PATTERN. absent: Accessory Muscle Use, Respiratory Distress - Cardiovascular Exam Cardiovascular Exam: REGULAR RHYTHM. absent: Bradycardia, Tachycardia - GI/Abdominal Exam GI & Abdominal Exam: Soft, Normal Bowel Sounds. absent: Firm, Guarding, Rigid, Tenderness - Extremities Exam Extremities Exam: Full ROM. absent: Calf Tenderness, Pedal Edema - Neurological Exam Neurological Exam: Alert, Awake, Oriented x3 - Psychiatric Exam Psychiatric exam: Normal Affect, Normal Mood - Skin Skin Exam: Dry, Intact, Normal Color, Warm Assessment and Plan - Assessment and Plan (Free Text) Assessment: 66F with bowel obstruction Plan: Diet: advanced to pureed/soft diet, will advance to regular if tolerated strict I/Os, weight, monitor BMs monitor CBC, CMP monitor diet tolerance d/w Dr. Varinder Merida, DO PGY1
--- NOTE | 2017-02-05 22:44 | DS ---
SUBJECTIVE: The patient is a 66-year-old, seen and examined. She states she is tolerating fluids. She had a big bowel movement. No abdominal pain. Some epigastric discomfort. Neurologically, she is awake and alert, communicative. PHYSICAL EXAMINATION: VITAL SIGNS: She is afebrile, pulse 60, respirations 21, blood pressure 125/55. LUNGS: Bilateral fair airflow. No rhonchi or crackles. HEART: S1 and S2 audible. ABDOMEN: Soft, nontender. No rebound, no guarding. NEUROLOGIC: She is awake and alert, able to communicate, ambulatory. ASSESSMENT: 1. Status post partial small-bowel obstruction. 2. Hypertension. 3. Coronary artery disease. 4. Chronic obstructive pulmonary disease. PLAN: The patient is tolerating food. If cleared by surgical team, the patient can be discharged today. Lori Aguila MD
[2017-02-09] MEDS ORDERED: Ergocalciferol 50,000 Intl Units Cap PO SCH (10:00)
== END 2017-02-05 12:55 | disposition home or self-care (01) | DRG 390 ==
LOC: ED 10:56 → ERH 13:39 → 3RSO 14:56
PROVIDERS: ADMIT Internal Medicine; ATTEND Internal Medicine
PROC: 0D9670Z Drainage of Stomach with Drainage Device, Via Natural or Artificial Opening (ICD-10-PCS; principal; 2017-02-02)
DX: K56.60 Unspecified intestinal obstruction (principal); J44.9 Chronic obstructive pulmonary disease, unspecified; I10 Essential (primary) hypertension; I25.10 Atherosclerotic heart disease of native coronary artery without angina pectoris; M51.9 Unspecified thoracic, thoracolumbar and lumbosacral intervertebral disc disorder; K21.9 Gastro-esophageal reflux disease without esophagitis; E78.5 Hyperlipidemia, unspecified; E03.9 Hypothyroidism, unspecified; R51 Headache; H40.9 Unspecified glaucoma; I25.2 Old myocardial infarction; Z87.891 Personal history of nicotine dependence; Z79.82 Long term (current) use of aspirin; Z95.5 Presence of coronary angioplasty implant and graft

== ENCOUNTER 2017-06-20 00:29 | Observation (INO) | payer OTHER, MEDICARE ==
[2017-06-20 00:35] VITALS: TEMP 98
--- NOTE | 2017-06-20 00:42 | ED PDOC ---
Arrival/HPI <Marah,Rob - Last Filed: 06/20/17 04:17> - General Historian: Patient, EMS <Joe Cruz - Last Filed: 06/20/17 15:15> - General Chief Complaint: Abdominal Pain Time Seen by Provider: 06/20/17 00:34 - History of Present Illness Narrative History of Present Illness (Text): 06/20/17 00:37 67 y/o female, pmh including htn/copd/cad/pneumonia/small bowel obstruction, allergic to penicillin and fluoroquinolones/contrast, biba c/o nausea and vomiting with generalized abdominal pain x 4 hours. Pt. stated that she had dinner tonight, after eating started to have nausea and vomiting, generalized abdominal pain, no palpitation, no rash, no night sweat, no dizziness, no chest pain or tearing pain, no palpitation, no recent traveling, no other medical or psychological complaints. (Joe Cruz) Past Medical History - Provider Review Nursing Documentation Reviewed: Yes - Infectious Disease Hx of Infectious Diseases: None - Tetanus Immunization Tetanus Immunization: Unknown - Cardiac Hx Cardiac Disorders: Yes ([place] 06/09/13, DVT s/p filter,ANGIOPLASTY) Hx Hypertension: Yes - Pulmonary Hx Chronic Obstructive Pulmonary Disease (COPD): Yes (O2 @ Home) - Neurological HX Cerebrovascular Accident: Yes - HEENT Hx HEENT Disorder: Yes Hx Cataracts: (Unknown) Hx Deafness: Yes ([place]) Hx Difficulty Chewing: No Hx Glaucoma: Yes - Renal Hx Renal Disorder: No Hx Dialysis: No - Endocrine/Metabolic Hx Diabetes Mellitus Type 2: Yes Hx Hypothyroidism: Yes - Hematological/Oncological Hx Blood Disorders: Yes Hx Anemia: Yes (BT) Hx Cancer: No - Integumentary Hx Dermatological Disorder: Yes Other/Comment: bilateral arms eccymotic areas - Musculoskeletal/Rheumatological Hx Musculoskeletal Disorders: Yes Hx Falls: Yes - Gastrointestinal Hx Gastrointestinal Disorders: Yes (hiatal hernia, umbilical hernia) Hx Diverticulitis: Yes (and diverticulosis) Hx Gall Bladder Disease: Yes (CHOLECYSTECTOMY) Hx Gastroesophageal Reflux: Yes Hx Liver Failure: No Hx Pancreatitis: Yes HX Swallowing Problems: No - Genitourinary/Gynecological Hx Genitourinary Disorders: Yes Hx Incontinence: Yes 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 - Psychiatric Hx Psychophysiologic Disorder: Yes Hx Anxiety: Yes Hx Depression: Yes Hx Substance Use: No - Surgical History Hx Cholecystectomy: Yes Hx Coronary Stent: Yes (06/09/13) Other/Comment: Hernia Surgery-15 June 2016 - Anesthesia Hx Anesthesia Reactions: No Hx Malignant Hyperthermia: No - Suicidal Assessment Feels Threatened In Home Enviroment: No <Joe Cruz - Last Filed: 06/20/17 15:15> Family/Social History - Physician Review Nursing Documentation Reviewed: Yes Family/Social History: Unknown Family HX Smoking Status: Former Smoker Hx Alcohol Use: No Hx Substance Use: No Hx Substance Use Treatment: No <Joe Cruz - Last Filed: 06/20/17 15:15> Allergies/Home Meds <Rob Crystal - Last Filed: 06/20/17 04:17> <Joe Cruz - Last Filed: 06/20/17 15:15> Allergies/Adverse Reactions: Allergies amoxicillin [From Augmentin] Allergy (Verified 02/02/17 20:38) RASH ciprofloxacin [From Cipro] Allergy (Verified 02/02/17 20:38) RASH ciprofloxacin HCl [From Cipro] Allergy (Verified 02/02/17 20:38) RASH clavulanic acid [From Augmentin] Allergy (Verified 02/02/17 20:38) RASH iodine Allergy (Verified 02/02/17 20:38) RASH linezolid [From Zyvox] Allergy (Verified 02/02/17 20:38) REDNESS Sulfa (Sulfonamide Antibiotics) Allergy (Verified 02/02/17 20:38) RASH tiotropium bromide [From Spiriva with HandiHaler] Allergy (Verified 02/02/17 20: 38) RASH seafood Allergy (Uncoded 02/02/17 20:38) RASH Home Medications: Home Meds Medication Instructions Recorded Confirmed Alprazolam [Xanax] 0.5 mg PO BID 11/11/16 06/20/17 Aspirin [Adult Low Dose Aspirin EC] 81 mg PO DAILY 11/11/16 06/20/17 Budesonide/Formoterol Fumarate 2 puff IH DAILY 11/11/16 06/20/17 [Symbicort 80-4.5 Mcg Inhaler] Cetirizine HCl [Zyrtec] 10 mg PO DAILY 11/11/16 06/20/17 Diclofenac Sodium [Voltaren] 1 appl TP TID 11/11/16 06/20/17 Ergocalciferol (Vitamin D2) 50,000 unit PO QWK 11/11/16 06/20/17 [Vitamin D2] Hydrocodone/Acetaminophen [[place] 1 each PO TID 11/11/16 06/20/17 10-325 Tablet] Levalbuterol [Xopenex] 0.63 mg IH Q6H 11/11/16 06/20/17 Levothyroxine [Synthroid] 137 mcg PO DAILY 11/11/16 06/20/17 Lisinopril [Zestril] 5 mg PO DAILY 11/11/16 06/20/17 Metoprolol Succinate 25 mg PO DAILY 11/11/16 06/20/17 Pantoprazole [Protonix EC Tab] 40 mg PO DAILY 11/11/16 06/20/17 Polyethylene Glycol 3350 [Miralax] 17 gm PO HS 11/11/16 06/20/17 Potassium Chloride [K-Dur 20 mEq 20 meq PO DAILY 11/11/16 06/20/17 ER Tab] Simvastatin [Zocor] 20 mg PO DAILY 11/11/16 06/20/17 Review of Systems - Review of Systems Constitutional: absent: Fatigue, Fevers Eyes: absent: Vision Changes ENT: absent: Hearing Changes Respiratory: absent: SOB, Cough Cardiovascular: absent: Chest Pain Gastrointestinal: Abdominal Pain, Nausea, Vomiting. absent: Diarrhea Musculoskeletal: absent: Arthralgias Skin: absent: Rash, Pruritis Neurological: absent: Headache, Dizziness Psychiatric: absent: Anxiety, Depression <Joe Cruz Q - Last Filed: 06/20/17 15:15> Physical Exam Vital Signs Reviewed: Yes Temperature: Afebrile Blood Pressure: Normal Pulse: Tachycardic Respiratory Rate: Normal Appearance: Positive for: Well-Appearing, Non-Toxic, Comfortable Pain Distress: Mild Mental Status: Positive for: Alert and Oriented X 3 - Systems Exam Head: Present: Atraumatic, Normocephalic Pupils: Present: PERRL Extroacular Muscles: Present: EOMI Conjunctiva: Present: Normal Mouth: Present: Moist Mucous Membranes Neck: Present: Normal Range of Motion Respiratory/Chest: Present: Clear to Auscultation, Good Air Exchange. No: Respiratory Distress, Accessory Muscle Use Cardiovascular: Present: Regular Rate and Rhythm, Normal S1, S2. No: Murmurs Abdomen: Present: Tenderness (+epigastric and lt. sided), Normal Bowel Sounds. No: Distention, Peritoneal Signs, Rebound, Guarding Back: Present: Normal Inspection Upper Extremity: Present: Normal Inspection. No: Cyanosis, Edema Lower Extremity: Present: Normal Inspection. No: Edema Neurological: Present: GCS=15, Speech Normal, Motor Func Grossly Intact, Gait Normal, Memory Normal Skin: Present: Warm, Dry, Normal Color. No: Rashes Psychiatric: Present: Alert, Oriented x 3, Normal Insight, Normal Concentration <Joe Cruz - Last Filed: 06/20/17 15:15> Vital Signs Temp Pulse Resp BP Pulse Ox 06/20/17 05:15 77 20 113/55 L 96 06/20/17 04:45 81 20 121/46 L 98 06/20/17 03:45 82 18 135/61 99 06/20/17 02:45 83 20 113/63 99 06/20/17 01:15 98 H 18 137/71 95 06/20/17 00:34 98 F 102 H 20 150/73 95 Medical Decision Making <Rob Crystal - Last Filed: 06/20/17 04:17> - RAD Interpretation Personal Development Mentor: Radiologist - EKG Interpretation Interpreted by ED Physician: Yes Type: 12 lead EKG <Joe Cruz - Last Filed: 06/20/17 15:15> ED Course and Treatment: EXAM: CT Abdomen and Pelvis Without Intravenous Contrast Dictated and Authenticated by: Chitra Graham MD 06/20/2017 3:37 AM IMPRESSION: Distended fluid-filled small bowel loops throughout the abdomen and pelvis as discussed above 06/20/17 04:[address] Aguila who accepts patient into her service on NPO IV fluid and consult with Dr. Sears. (Rob Crystal) 06/20/17 00:43 -labs/cardiac enzyme/pt/ptt/type and screen/lipase -ekg -cxr -Ct abdomen and pelvis -IVF/morphine/zofran/pepcid -Observe and reassess 06/20/17 01:14 -Pt. still in pain, morphine 4mg ordered. 06/20/17 03:06 -EKG: SR @ 97 BPM, no acute ST or T wave changes compared with previous ekg, chronic RBBB -Chest xray: no active disease -CT abdomen and pelvis is pending -Labs show no acute findings except wbc 13 -Case discussed and endorsed to Dr. Crystal to follow up on the CT abdomen and pending labs. (Joe Cruz) - Lab Interpretations Lab Results: 06/20/17 00:40 06/20/17 00:40 Lab Results 06/20/17 00:40: Blood Type A POSITIVE, Antibody Screen Negative, BBK History Checked Patient has bt 06/20/17 00:40: PT 10.1, INR 0.89 L, APTT 29.2 06/20/17 00:40: Influenza Typ A,B (EIA) Negative for flu a/b 06/20/17 00:40: Sodium 145, Potassium 4.1, Chloride 103, Carbon Dioxide 27, Anion Gap 20, BUN 24 H, Creatinine 0.6 L, Est GFR ( Amer) > 60, Est GFR ( Non-Af Amer) > 60, Random Glucose 95, Calcium 10.0, Total Bilirubin 0.5, AST 28 , ALT 26, Alkaline Phosphatase 60, Lactate Dehydrogenase 613, Total Creatine Kinase 94, Troponin I < 0.01, NT-Pro-B Natriuret Pep 452 H, Total Protein 7.8, Albumin 4.7, Globulin 3.1, Albumin/Globulin Ratio 1.5 06/20/17 00:40: WBC 13.3 H D, RBC 4.52, Hgb 14.4 D, Hct 43.4, MCV 96.0 D, MCH 31.9, MCHC 33.2, RDW 13.4, Plt Count 253, MPV 10.9, Gran % 76.0 H, Lymph % (Auto ) 14.9 L, [place] % (Auto) 8.6 H, Eos % (Auto) 0.4 L, Baso % (Auto) 0.1, Gran # 10.11 H, Lymph # 2.0, [place] # 1.1 H, Eos # 0.1, Baso # 0.01 - RAD Interpretation Radiology Orders: 06/20/17 00:36 CHEST PORTABLE [RAD] Stat 06/20/17 02:06 ABDOMEN & PELVIS [ABD & PELVIS W/O PO OR IV CONT] [CT] Stat no active pulmonary disease on chest xray. (Joe Cruz) - EKG Interpretation EKG Interpretation (Text): 06/20/17 01:16 -EKG: SR @ 97 BPM, no acute ST or T wave changes, chronic RBBB (Joe Cruz) - Medication Orders Current Medication Orders: Sodium Chloride (Sodium Chloride 0.9%) 1,000 mls @ 125 mls/hr IV .Q8H SALLY Last Admin: 06/20/17 06:27 Dose: 125 mls/hr eMAR Start Stop Document 06/20/17 06:27 STOCP (Rec: 06/20/17 06:28 [id number] Intravenous Solution Start Date 06/20/17 Start Time 06:28 Ondansetron HCl (Zofran Inj) 4 mg IVP Q6H PRN PRN Reason: Nausea/Vomiting Pantoprazole Sodium (Protonix Inj) 40 mg IVP DAILY SALLY Discontinued Medications Famotidine (Pepcid) 20 mg IVP STAT STA Stop: 06/20/17 00:37 Last Admin: 06/20/17 01:03 Dose: 20 mg IVP Administration Document 06/20/17 01:03 YP (Rec: 06/20/17 01:03 YP [id number]) Charges for Administration # of IVP Administrations 1 Sodium Chloride (Sodium Chloride 0.9%) 1,000 mls @ 100 mls/hr IV .Q10H [facility] Last Admin: 06/20/17 01:03 Dose: 100 mls/hr eMAR Start Stop Document 06/20/17 01:03 YP (Rec: 06/20/17 01:03 YP [id number]) Intravenous Solution Start Date 06/20/17 Start Time 01:03 End Date 06/20/17 End time 01:34 Total Infusion Time 31 Ketorolac Tromethamine (Toradol) 15 mg IVP STAT STA Stop: 06/20/17 06:09 Last Admin: 06/20/17 06:24 Dose: 15 mg MAR Pain Assessment Document 06/20/17 06:24 STOCP (Rec: 06/20/17 06:25 [facility][id number][facility] Pain Reassessment Is this a pain reassessment? Yes Sleep Is patient sleeping during reassessment? No Presence of Pain Presence of Pain Yes Pain Scale Used Pain Scale Used Numeric Location Pain Location Body Site Abdomen Description Description Constant Intensity of Pain at present 9 Acceptable Level of Pain 1 Pain Behavior Facial Grimacing Aggravating Factors None Alleviating Factors/Management Medication Techniques Alleviating Factors Medication IVP Administration Document 06/20/17 06:24 STOCP (Rec: 06/20/17 06:25 [place] [facility] [id number] Charges for Administration # of IVP Administrations 1 Morphine Sulfate (Morphine) 2 mg IVP STAT STA Stop: 06/20/17 00:44 Last Admin: 06/20/17 01:03 Dose: 2 mg MAR Pain Assessment Document 06/20/17 01:03 YP (Rec: 06/20/17 01:03 YP [id number]) Pain Reassessment Is this a pain reassessment? No Sleep Is patient sleeping during reassessment? No Presence of Pain Presence of Pain Yes IVP Administration Document 06/20/17 01:03 YP (Rec: 06/20/17 01:03 YP [id number]) Charges for Administration # of IVP Administrations 1 Morphine Sulfate (Morphine) 4 mg IVP STAT STA Stop: 06/20/17 01:15 Last Admin: 06/20/17 01:32 Dose: 4 mg MAR Pain Assessment Document 06/20/17 01:32 [facility] (Rec: 06/20/17 01:33 [id number] Pain Reassessment Is this a pain reassessment? No Sleep Is patient sleeping during reassessment? No Presence of Pain Presence of Pain Yes Pain Scale Used Pain Scale Used Numeric Location Pain Location Body Site Abdomen Description Description Throbbing Intensity of Pain at present 7 Pain Behavior Rubbing Site Aggravating Factors ADL's IVP Administration Document 06/20/17 01:32 R (Rec: 06/20/17 01:33 [id number] Charges for Administration # of IVP Administrations 1 Ondansetron HCl (Zofran Inj) 4 mg IVP STAT STA Stop: 06/20/17 00:37 Last Admin: 06/20/17 01:04 Dose: IVP Administration Document 06/20/17 01:04 YP (Rec: 06/20/17 01:04 YP [id number]) Charges for Administration # of IVP Administrations 1 Ondansetron HCl (Zofran Inj) 4 mg IVP STAT STA Stop: 06/20/17 02:37 Last Admin: 06/20/17 02:39 Dose: 4 mg IVP Administration Document 06/20/17 02:39 YP (Rec: 06/20/17 02:39 YP [id number]) Charges for Administration # of IVP Administrations 1 Ondansetron HCl (Zofran Inj) 4 mg IVP Q4H PRN PRN Reason: Nausea/Vomiting Stop: 06/20/17 11:00 - PA / DIRECTOR INTERNATIONAL / Resident Statement JOHANA has reviewed & agrees with the documentation as recorded. JOHANA has examined the patient and agrees with the treatment plan. <Rob Crystal - Last Filed: 06/20/17 04:17> - PA / DIRECTOR INTERNATIONAL / Resident Statement JOHANA has reviewed & agrees with the documentation as recorded. <Joe Cruz - Last Filed: 06/20/17 15:15> Disposition/Present on Arrival - Present on Arrival Any Indicators Present on Arrival: No History of DVT/PE: No History of Uncontrolled Diabetes: No Urinary Catheter: No History of Decub. Ulcer: No History Surgical Site Infection Following: None - Disposition Have Diagnosis and Disposition been Completed?: Yes Disposition Time: 04:13 Patient Plan: Observation <Rob Crystal - Last Filed: 06/20/17 04:17> - Present on Arrival Any Indicators Present on Arrival: No History of DVT/PE: No History of Uncontrolled Diabetes: No Urinary Catheter: No History of Decub. Ulcer: No History Surgical Site Infection Following: None - Disposition Have Diagnosis and Disposition been Completed?: Yes <Joe Cruz - Last Filed: 06/20/17 15:15> - Disposition Diagnosis: Abdominal pain, Ileus, Vomiting Disposition: HOSPITALIZED Patient Problems: Current Active Problems Problem Status Onset Abdominal pain Acute Ileus Acute Vomiting Acute Condition: STABLE
[2017-06-20] MEDS ORDERED: Morphine 2 mg/ml ISec IVP STA (00:43)
[2017-06-20] MEDS ORDERED: Sodium Chloride 0.9% 1,000 ML IV SCH (00:45)
[2017-06-20 01:11] LABS: BASO # 0.01 K/mm3 (0.0-2.0); BASO % 0.1 % (0.0-3.0); EOS # 0.1 (0.0-0.7); EOS % 0.4 % (1.5-5.0); GRAN # 10.11 (1.4-6.5); HEMOGLOBIN 14.4 g/dL (12.0-16.0); LYMPH % 14.9 % (22.0-35.0); MEAN CORPUSCULAR HEMOGLOBIN 31.9 pg (25.0-35.0); MEAN CORPUSCULAR HGB CONC 33.2 g/dl (31.0-37.0); MEAN PLATELET VOLUME 10.9 fl (7.0-11.0); MONO # 1.1 (0.1-0.6); MONO % 8.6 % (1.0-6.0); RBC 4.52 10^6/uL (3.5-6.1); RED CELL DISTRIBUTION WIDTH 13.4 % (11.5-14.5); WHITE BLOOD COUNT 13.3 10^3/ul (4.5-11.0)
[2017-06-20] MEDS ORDERED: Morphine 4 mg/ml ISec IVP STA (01:14)
[2017-06-20 01:18] LABS: INR 0.89 (0.93-1.08); PARTIAL THROMBOPLASTIN TIME 29.2 Seconds (25.1-36.5); PROTHROMBIN TIME 10.1 SECONDS (9.4-12.5)
[2017-06-20 01:21] LABS: ALB/GLOB RATIO 1.5 (1.1-1.8); ALBUMIN 4.7 g/dL (3.0-4.8); ALT/SGPT 26 U/L (7-56); AST/SGOT 28 U/L (14-36); BLOOD UREA NITROGEN 24 mg/dL (7-21); GFR AFRICAN-AMERICAN > 60; GFR NON-AFRICAN AMERICAN > 60
[2017-06-20 01:31] LABS: B-TYPE NATRIURETIC PEPTIDE 452 pg/mL (0-450); TROPONIN I < 0.01 ng/mL
[2017-06-20] MEDS: Sodium Chloride 0.9% 1,000 ML IV SCH ×2 (01:34→06:27)
--- NOTE | 2017-06-20 03:37 | CT ---
EXAM: CT Abdomen and Pelvis Without Intravenous Contrast EXAM DATE/TIME: 06/20/2017 2:06 AM CLINICAL HISTORY: 67 years old, female; Pain; Abdominal pain; Generalized; Prior surgery; Surgery type: Hernia repair; Additional info: Nausea/vomiting, allergic to contrast TECHNIQUE: Axial computed tomography images of the abdomen and pelvis without intravenous contrast. All CT scans at this facility use one or more dose reduction techniques, viz.: automated exposure control; ma/kV adjustment per patient size (including targeted exams where dose is matched to indication; i.e. head); or iterative reconstruction technique. Coronal and sagittal reformatted images were created and reviewed. COMPARISON: CT - ABD PELVIS W/O PO OR IV CONT 2017-02-02 12:55 FINDINGS: IVC filter. Cholecystectomy clips are present.There is intrahepatic duct dilation similar to prior and likely secondary to cholecystectomy however correlation with laboratory values may be helpful. The liver, spleen, and pancreas appear grossly normal on this non-contrast study. There are non obstructing renal calculi. Tiny stable hyperdense left renal lesion possible complex cyst. Evidence of a hernia repair anterior abdomen. There are distended fluid-filled small bowel loops throughout the abdomen and pelvis. Although the distention is slightly greater in proximal loops, there is no transition point and there are no decompressed loops to suggest obstruction. Developing ileus would be possible although the colon is of normal caliber. Mild enteritis would also be possible. Colonic diverticulosis. A normal appendix is identified coronal 70 through 80, axial series 3 images 114- 120. IMPRESSION: Distended fluid-filled small bowel loops throughout the abdomen and pelvis as discussed above.
--- NOTE | 2017-06-20 06:09 | CP.PCM.PN ---
Subjective - Date & Time of Evaluation Date of Evaluation: 06/20/17 Time of Evaluation: 06:08 - Subjective Subjective: Patient was seen at bedside. She complained of abdominal pain, diffuse, mild. Denies nausea, vomiting, diarrhoea, constipation. Medical record was reviewed. This 67 year old white woman was admitted with generalized abdominal pain. Has PMH of NSTEMI, angioplasty,COPD, HTN, HLD, CAD, on home oxygen, hiatus hernia, umbilical hernia, diverticulosis. Objective - Vital Signs/Intake and Output Vital Signs (last 24 hours): Temp Pulse Resp BP Pulse Ox 98 F 77 20 113/55 L 96 06/20/17 00:34 06/20/17 05:15 06/20/17 05:15 06/20/17 05:15 06/20/17 05:15 - Medications Medications: Current Medications Sodium Chloride (Sodium Chloride 0.9%) 1,000 mls @ 125 mls/hr IV .Q8H SALLY Last Admin: 06/20/17 01:34 Dose: 125 mls/hr Ondansetron HCl (Zofran Inj) 4 mg IVP Q4H PRN PRN Reason: Nausea/Vomiting Stop: 06/20/17 11:00 - Labs Labs: PT 10.1 SECONDS (9.4-12.5) 06/20/17 00:40 INR 0.89 (0.93-1.08) L 06/20/17 00:40 APTT 29.2 Seconds (25.1-36.5) 06/20/17 00:40 - Constitutional Appears: Well, No Acute Distress - Head Exam Head Exam: ATRAUMATIC, NORMAL INSPECTION, NORMOCEPHALIC - Eye Exam Eye Exam: Normal appearance - ENT Exam ENT Exam: Normal External Ear Exam - Neck Exam Neck Exam: Normal Inspection - Respiratory Exam Respiratory Exam: NORMAL BREATHING PATTERN - Cardiovascular Exam Cardiovascular Exam: absent: JVD - GI/Abdominal Exam GI & Abdominal Exam: Soft (Yes.), Normal Bowel Sounds. absent: Distended, Firm , Guarding, Rigid, Tenderness, Hernia, Mass, Organomegaly, Pulsatile Mass, Rebound - Rectal Exam Rectal Exam: Deferred - Exam Additional comments: Deferred. - Extremities Exam Extremities Exam: Normal Inspection - Back Exam Back Exam: NORMAL INSPECTION - Neurological Exam Neurological Exam: Alert, Oriented x3 - Psychiatric Exam Psychiatric exam: Normal Affect, Normal Mood - Skin Skin Exam: Normal Color Assessment and Plan - Assessment and Plan (Free Text) Assessment: Diffuse abdominal pain. COPD. HTN. CAD. HLD. Hx NSTEMI. Plan: Toradol 15 mg IV x 1. Continue present management as per PMD.
[2017-06-20 06:44] VITALS: BP 97/49; PULSE 75; RESP 22; O2SAT 98
[2017-06-20 06:58] VITALS: BMI 25.2
--- NOTE | 2017-06-20 09:29 | CP.PCM.CON ---
<Ramirez Carlisle - Last Filed: 06/20/17 10:57> History of Present Illness - History of Present Illness History of Present Illness: General Surgery- Dr. Reeder 67F w/ extensive pmhxincluding COPD on home O2, HTN, CAD, HLD, multiple abd surgeries; presents to [facility] ED w/ generalized abdominal pain for 1 day. Patient has experienced pain like this in the past, and usually resolves spontaneously. Pt admits to having chicken from a new place where she does not usually shop. Few hours after consuming the chicken is when abd pain began. Since being in the hospital had one episode of non-bloody, non-bilious vomiting and two non- bloody large well formed BM. Since then then pt reports feeling better. currently passing flatus, abdominal pain only to palpation Denies: Fevers, chills, chest pain, nausea, diarrhea, numbness/tingling in extremities PMH: HTN, PVD, COPD, NSTEMI, CAD s/p angioplasty, hiatal hernia, umbilical hernia, diverticulosis PSH: cholecystectomy, ventral hernia repair, ex-lap with removal of mesh, cardiac cath () A::: amoxicillin, ciprofloxacin, clavulanic acid, iodine, linezolid, sulfa drugs , tiotropium bromide, seafood SocialHx: former smoker, denies EtOH/drugs Review of Systems - Review of Systems All systems: reviewed and no additional remarkable complaints except - Constitutional Constitutional: As Per HPI Past Patient History - Infectious Disease Hx of Infectious Diseases: None - Tetanus Immunizations Tetanus Immunization: Unknown - Past Social History Smoking Status: Never Smoked - CARDIAC Hx Cardiac Disorders: Yes ([place] 06/09/13, DVT s/p filter,ANGIOPLASTY) Hx Hypertension: Yes - PULMONARY Hx Chronic Obstructive Pulmonary Disease (COPD): Yes (O2 @ Home) Hx Emphysema: Yes - NEUROLOGICAL HX Cerebrovascular Accident: Yes - HEENT Hx HEENT Problems: Yes Hx Cataracts: (Unknown) Hx Deafness: Yes ([place]) Hx Difficulty Chewing: No Hx Glaucoma: Yes - RENAL Hx Chronic Kidney Disease: No Hx Dialysis: No - ENDOCRINE/METABOLIC Hx Diabetes Mellitus Type 2: Yes (DIET CONTROLLED) Hx Hypothyroidism: Yes - HEMATOLOGICAL/ONCOLOGICAL Hx Blood Disorders: Yes Hx Anemia: Yes (BT) Hx Cancer: No - INTEGUMENTARY Hx Dermatological Problems: Yes Other/Comment: bilateral arms eccymotic areas - MUSCULOSKELETAL/RHEUMATOLOGICAL Hx Musculoskeletal Disorders: Yes Hx Falls: Yes Hx Unsteady Gait: Yes (USES WALKER) - GASTROINTESTINAL Hx Gastrointestinal Disorders: Yes (hiatal hernia, umbilical hernia) Hx Diverticulitis: Yes (and diverticulosis) Hx Gall Bladder Disease: Yes (CHOLECYSTECTOMY) Hx Gastroesophageal Reflux: Yes Hx Liver Failure: No Hx Pancreatitis: Yes HX Swallowing Problems: No - GENITOURINARY/GYNECOLOGICAL Hx Genitourinary Disorders: Yes Hx Incontinence: Yes 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 THYROIDECTOMY - ANESTHESIA Hx Anesthesia Reactions: No Hx Malignant Hyperthermia: No Meds Allergies/Adverse Reactions: Allergies Allergy/AdvReac Type Severity Reaction Status Date / Time amoxicillin [From Augmentin] Allergy RASH Verified 02/02/17 20:38 ciprofloxacin [From Cipro] Allergy RASH Verified 02/02/17 20:38 ciprofloxacin HCl Allergy RASH Verified 02/02/17 20:38 [From Cipro] clavulanic acid Allergy RASH Verified 02/02/17 20:38 [From Augmentin] iodine Allergy RASH Verified 02/02/17 20:38 linezolid [From Zyvox] Allergy REDNESS Verified 02/02/17 20:38 Sulfa (Sulfonamide Allergy RASH Verified 02/02/17 20:38 Antibiotics) tiotropium bromide Allergy RASH Verified 02/02/17 20:38 [From Spiriva with HandiHaler] seafood Allergy RASH Uncoded 02/02/17 20:38 - Medications Medications: Current Medications Sodium Chloride (Sodium Chloride 0.9%) 1,000 mls @ 125 mls/hr IV .Q8H SALLY Last Admin: 06/20/17 06:27 Dose: 125 mls/hr Ondansetron HCl (Zofran Inj) 4 mg IVP Q4H PRN PRN Reason: Nausea/Vomiting Stop: 06/20/17 11:00 Physical Exam - Constitutional Appears: Non-toxic, No Acute Distress - Head Exam Additional comments: consistent nodding motion - Eye Exam Eye Exam: EOMI. absent: Scleral icterus - ENT Exam ENT Exam: Mucous Membranes Moist - Respiratory Exam Respiratory Exam: NORMAL BREATHING PATTERN. absent: Accessory Muscle Use, Respiratory Distress - Cardiovascular Exam Cardiovascular Exam: +S1, +S2. absent: Bradycardia, Tachycardia - GI/Abdominal Exam GI & Abdominal Exam: Soft, Tenderness. absent: Distended, Firm, Guarding, Hernia, Rebound, Rigid Additional comments: Tender to deep palpation in RightU&L quadrant midline incision well healed - Back Exam Back exam: absent: CVA tenderness (L), CVA tenderness (R) - Neurological Exam Neurological exam: Alert, Oriented x3 - Psychiatric Exam Psychiatric exam: Normal Affect - Skin Skin Exam: Warm Results - Vital Signs Recent Vital Signs: Last Vital Signs Temp 98 F 06/20/17 08:08 Pulse 75 06/20/17 08:08 Resp 22 06/20/17 08:08 BP 97/49 L 06/20/17 08:08 Pulse Ox 98 06/20/17 08:08 - Labs Result Diagrams: 06/20/17 00:40 06/20/17 00:40 Assessment & Plan - Assessment and Plan (Free Text) Assessment: 67F genralzied abd pain currently resolved s/p BM and flatus; gastroenteritis vs ileus Plan: - NPO - IVF - serial abd exams - will hold Abx for now - further recs per Dr. Reeder Surgical attending Ramirez Carlisle PGY1 <Martin Reeder - Last Filed: 06/21/17 11:33> Results - Vital Signs Recent Vital Signs: Last Vital Signs Temp 98 F 06/20/17 08:08 Pulse 75 06/20/17 08:08 Resp 22 06/20/17 08:08 BP 97/49 L 06/20/17 08:08 Pulse Ox 98 06/20/17 08:08 - Labs Result Diagrams: 06/20/17 00:40 06/20/17 00:40 Assessment & Plan - Assessment and Plan (Free Text) Assessment: acute gastroenteritis NOT PSBO This consult done uder my direct supervision Pt can be discharged for office follow up Akil Reeder MD FACS
--- NOTE | 2017-06-20 09:52 | RAD ---
HISTORY: medical clearance COMPARISON: 02/02/2017. FINDINGS: LUNGS: The lungs are well inflated. There is mild pulmonary venous congestion. PLEURA: No significant pleural effusion identified, no pneumothorax apparent. CARDIOVASCULAR: There is mild cardiomegaly. Atherosclerotic aortic arch calcifications are present. OSSEOUS STRUCTURES: No significant abnormalities. VISUALIZED UPPER ABDOMEN: Normal. OTHER FINDINGS: None. IMPRESSION: No active pulmonary disease.
--- NOTE | 2017-06-20 19:27 | CARD ---
APPROVED REPORT EKG Measurement Heart [id number] CT 180P40 [id number] <Conclusion> Sinus rhythm with premature atrial complexes Possible Left atrial enlargement Right bundle branch block Left anterior fascicular block Bifascicular block Left ventricular hypertrophy with repolarization abnormality Abnormal ECG
--- NOTE | 2017-06-21 01:39 | HP ---
HISTORY OF PRESENT ILLNESS: The patient is a 67-year-old known to me from multiple previous admissions, recently had abdominal hernia surgery done. The patient states yesterday her boyfriend brought chicken fingers, she had couple of bites and after few hours, she started to vomit and developed severe abdominal pain, so she came to Emergency Room around 11 o'clock at night. She has been throwing up since then, was kept n.p.o., given IV fluids, seems to be doing well, and wants to go home. PAST MEDICAL HISTORY: She has significant past medical history for: 1. COPD. 2. Hypertension. 3. On home oxygen. 4. Coronary artery disease, status post angioplasty. 5. Hyperlipidemia. 6. Chronic degenerative disk disease. 7. Multiple ventral hernia repair, followed by wound infection and had revision done. ALLERGIES: SHE IS ALLERGIC TO AMOXICILLIN, CIPRO, AUGMENTIN, IODINE, AND SEAFOODS. MEDICATIONS AT HOME: The patient is on simvastatin, Zocor 20 mg daily, potassium 20 mEq daily, Protonix 40 mg daily, metoprolol 25 daily, lisinopril 5 mg daily, levothyroxine 137 mcg daily, Xopenex, vitamin D, Zyrtec, aspirin, and Xanax. SOCIAL HISTORY: She lives with her boyfriend. She used to be very heavy smoker. PHYSICAL EXAMINATION: GENERAL: She is awake, alert, oriented, and communicative. VITAL SIGNS: She is afebrile, pulse 75, respirations 22, and blood pressure 97/49. LUNGS: Bilateral good airflow. No rhonchi or crackle. HEART: S1 and S2 audible. ABDOMEN: Soft and nontender. No rebound. No guarding. NEUROLOGIC: The patient is awake, alert, oriented, and able to communicate. LABORATORY DATA: WBC of 13.3, hemoglobin of 14, hematocrit of 43, and platelet of . PT of 10.1 and INR was 0.89. Chemistry: Sodium 145, potassium 4.1, chloride 103, CO2 of 27, BUN 24, creatinine 0.6, and blood sugar of 95. LFTs are within normal limits. Flu test is negative. ASSESSMENT: 1. Partial small bowel obstruction with multiple fluid level. 2. Gastroenteritis. 3. Hypertension. 4. Coronary artery disease. 5. Degenerative disk disease. 6. Multiple abdominal surgeries. PLAN: The patient is clinically stable, tolerating the liquid diet, and seen by Dr. Sears and is recommended to be discharged. The patient will be sent home on liquid diet and soft diet and she will follow up with me and Dr. Sears as outpatient. Lori Aguila MD
== END 2017-06-20 17:33 | disposition home or self-care (01) ==
LOC: ED 00:29 → ERH 04:14 → 5RNO 05:44
PROVIDERS: ADMIT Internal Medicine; ATTEND Internal Medicine
DX: K52.9 Noninfective gastroenteritis and colitis, unspecified (principal); R10.84 Generalized abdominal pain; J43.9 Emphysema, unspecified; I25.10 Atherosclerotic heart disease of native coronary artery without angina pectoris; I10 Essential (primary) hypertension; E78.5 Hyperlipidemia, unspecified; E11.51 Type 2 diabetes mellitus with diabetic peripheral angiopathy without gangrene; E03.9 Hypothyroidism, unspecified; I25.2 Old myocardial infarction; M51.9 Unspecified thoracic, thoracolumbar and lumbosacral intervertebral disc disorder; Z95.5 Presence of coronary angioplasty implant and graft; Z87.891 Personal history of nicotine dependence; Z88.2 Allergy status to sulfonamides; Z99.81 Dependence on supplemental oxygen
CPT/HCPCS: 71045; 74176; 80053; 82550; 83615; 83880; 84484; 85025; 85610; 85730; 86850; 86900; 87804; 93005; 96361; 96374; 96375; 96376; 99285; G0378; J1885; J2270; J2405; J7040

== ENCOUNTER 2017-08-15 15:09 | Emergency (ER) | payer OTHER, MEDICARE ==
[2017-08-15 15:09] VITALS: BMI 25.2
--- NOTE | 2017-08-15 15:22 | ED PDOC ---
Arrival/HPI - General Time Seen by Provider: 08/15/17 15:17 Historian: Patient, Family, EMS - History of Present Illness Narrative History of Present Illness (Text): 08/15/17 15:19 67 y/o female, pmh including htn/hyperlipidemia/hypothryoidism/copd/bowel obstruction/cad with angioplasty, allergic to penicillin/fluoroquinolones, biba for syncope episode and lt. shoulder pain x 1 hour. Pt. is here with the niece which she witnessed the entire episode of the syncope. Pt. was at her great granddaughter this after, been crying and very emotional, syncopized when they were closing the gasket, catch by her niece with out falling to the ground. Pt. has no chest pain or shortness of breath, no night sweat, no dizziness, no change in vision, no palpitation, no rash, no numbness or tingling , no change in speech patern or behavior, no other medical or psychological complaints. Past Medical History - Provider Review Nursing Documentation Reviewed: Yes - Infectious Disease Hx of Infectious Diseases: None - Tetanus Immunization Tetanus Immunization: Unknown - Cardiac Hx Cardiac Disorders: Yes ([place] 06/09/13, DVT s/p filter,ANGIOPLASTY) Hx Hypertension: Yes - Pulmonary Hx Chronic Obstructive Pulmonary Disease (COPD): Yes (O2 @ Home) - Neurological HX Cerebrovascular Accident: Yes - HEENT Hx HEENT Disorder: Yes Hx Cataracts: (Unknown) Hx Deafness: Yes (RINCON) Hx Difficulty Chewing: No Hx Glaucoma: Yes - Renal Hx Renal Disorder: No Hx Dialysis: No - Endocrine/Metabolic Hx Diabetes Mellitus Type 2: Yes Hx Hypothyroidism: Yes - Hematological/Oncological Hx Blood Disorders: Yes Hx Anemia: Yes (BT) Hx Cancer: No - Integumentary Hx Dermatological Disorder: Yes Other/Comment: bilateral arms eccymotic areas - Musculoskeletal/Rheumatological Hx Musculoskeletal Disorders: Yes Hx Falls: Yes - Gastrointestinal Hx Gastrointestinal Disorders: Yes (hiatal hernia, umbilical hernia) Hx Diverticulitis: Yes (and diverticulosis) Hx Gall Bladder Disease: Yes (CHOLECYSTECTOMY) Hx Gastroesophageal Reflux: Yes Hx Liver Failure: No Hx Pancreatitis: Yes HX Swallowing Problems: No - Genitourinary/Gynecological Hx Genitourinary Disorders: Yes Hx Incontinence: Yes 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 - Psychiatric Hx Psychophysiologic Disorder: Yes Hx Anxiety: Yes Hx Depression: Yes Hx Substance Use: No - Surgical History Hx Cholecystectomy: Yes Hx Coronary Stent: Yes (06/09/13) Other/Comment: Hernia Surgery-15 June 2016 - Anesthesia Hx Anesthesia Reactions: No Hx Malignant Hyperthermia: No - Suicidal Assessment Feels Threatened In Home Enviroment: No Family/Social History - Physician Review Nursing Documentation Reviewed: Yes Family/Social History: Unknown Family HX Smoking Status: Former Smoker Hx Alcohol Use: No Hx Substance Use: No Hx Substance Use Treatment: No Allergies/Home Meds Allergies/Adverse Reactions: Allergies amoxicillin [From Augmentin] Allergy (Verified 02/02/17 20:38) RASH ciprofloxacin [From Cipro] Allergy (Verified 02/02/17 20:38) RASH ciprofloxacin HCl [From Cipro] Allergy (Verified 02/02/17 20:38) RASH clavulanic acid [From Augmentin] Allergy (Verified 02/02/17 20:38) RASH iodine Allergy (Verified 02/02/17 20:38) RASH linezolid [From Zyvox] Allergy (Verified 02/02/17 20:38) REDNESS Sulfa (Sulfonamide Antibiotics) Allergy (Verified 02/02/17 20:38) RASH tiotropium bromide [From Spiriva with HandiHaler] Allergy (Verified 02/02/17 20: 38) RASH seafood Allergy (Uncoded 02/02/17 20:38) RASH Home Medications: Home Meds Medication Instructions Recorded Confirmed Alprazolam [Xanax] 0.5 mg PO BID 11/11/16 06/20/17 Aspirin [Adult Low Dose Aspirin EC] 81 mg PO DAILY 11/11/16 06/20/17 Budesonide/Formoterol Fumarate 2 puff IH DAILY 11/11/16 06/20/17 [Symbicort 80-4.5 Mcg Inhaler] Cetirizine HCl [Zyrtec] 10 mg PO DAILY 11/11/16 06/20/17 Diclofenac Sodium [Voltaren] 1 appl TP TID 11/11/16 06/20/17 Ergocalciferol (Vitamin D2) 50,000 unit PO QWK 11/11/16 06/20/17 [Vitamin D2] Hydrocodone/Acetaminophen [[place] 1 each PO TID 11/11/16 06/20/17 10-325 Tablet] Levalbuterol [Xopenex] 0.63 mg IH Q6H 11/11/16 06/20/17 Levothyroxine [Synthroid] 137 mcg PO DAILY 11/11/16 06/20/17 Lisinopril [Zestril] 5 mg PO DAILY 11/11/16 06/20/17 Metoprolol Succinate 25 mg PO DAILY 11/11/16 06/20/17 Pantoprazole [Protonix EC Tab] 40 mg PO DAILY 11/11/16 06/20/17 Polyethylene Glycol 3350 [Miralax] 17 gm PO HS 11/11/16 06/20/17 Potassium Chloride [K-Dur 20 mEq 20 meq PO DAILY 11/11/16 06/20/17 ER Tab] Simvastatin [Zocor] 20 mg PO DAILY 11/11/16 06/20/17 Review of Systems - Review of Systems Constitutional: absent: Fatigue, Fevers Eyes: absent: Vision Changes ENT: absent: Hearing Changes Respiratory: absent: SOB, Cough Cardiovascular: Syncope. absent: Chest Pain Gastrointestinal: absent: Abdominal Pain, Nausea, Vomiting, Anorexia Musculoskeletal: absent: Arthralgias, Back Pain Skin: absent: Rash, Pruritis Neurological: absent: Headache, Dizziness, Focal Weakness, Gait Changes Psychiatric: absent: Anxiety, Depression, Suicidal Ideation Physical Exam Vital Signs Temp Pulse Resp BP Pulse Ox 08/15/17 15:10 98.2 F 93 H 18 135/94 H 99 - Systems Exam Head: Present: Atraumatic, Normocephalic Pupils: Present: PERRL Extroacular Muscles: Present: EOMI Conjunctiva: Present: Normal Mouth: Present: Moist Mucous Membranes Neck: Present: Normal Range of Motion Respiratory/Chest: Present: Clear to Auscultation, Good Air Exchange. No: Respiratory Distress, Accessory Muscle Use Cardiovascular: Present: Regular Rate and Rhythm, Normal S1, S2. No: Murmurs Abdomen: Present: Normal Bowel Sounds. No: Tenderness, Distention, Peritoneal Signs Back: Present: Normal Inspection. No: Midline Tenderness, Paraspinal Tenderness Upper Extremity: Present: Normal Inspection, Other (Lt. shoulder: +ttp on the lt. shoulder joint region, no deformity, FROM without limitation, sensation intact, motor 5/5, +radial pulse, capillary refill< 2 seconds, neurovascular intact. ). No: Cyanosis, Edema Lower Extremity: Present: Normal Inspection. No: Edema Neurological: Present: GCS=15, Speech Normal, Motor Func Grossly Intact, Gait Normal, Memory Normal, Other (no drift. ) Skin: Present: Warm, Dry, Normal Color. No: Rashes Psychiatric: Present: Alert, Oriented x 3, Normal Insight, Normal Concentration Medical Decision Making ED Course and Treatment: 08/15/17 15:24 -labs/ua/alcohol/cardiac enzyme -CT head -Chest xray and lt. shoulder xray -surveillance monitor and orthostatic v/s -observe and reassess 08/15/17 18:00 -EKG: NSR @ 91 BPM, RBBB with LVH and bifasicular block, no acute ST or T wave changes compared with 06/20/2017 ekg. -CT head: Unremarkable unenhanced head CT. Incidental changed her prior head CT 06/08/2013. Incidental left maxillary sinusitis. -Chest xray: no active disease -Lt. shoulder xray: no fracture or dislocation -Labs are non-significant except mg 2.4 -Pending UA/UDS and orthostatic vital signs -Pt. request to sign out against medical advice as she is completely asymptomatic at this time, family and niece on the bed side which they agreed that they respect the patient's decision. Family will stay with the patient tonight. -Pt. understanding that the ER evaluation and work up is not complete but she wishes to be out of here at before 6pm. -AMA ER The patient refuses to stay in the Emergency Room (ER) to continue the care and wishes to leave the emergency department against my medical advice. Patient was told that staying in the ER is necessary and a full explanation of the reasons why was given, and understood by the patient with alert and oriented x4. The risk of leaving were explained in laymans term and including but not limited to syncope, stroke, intracranial bleeding, myocardial infarction, cardiac arrythmia, , pain, worsening of condition, permanent disability and from an undiagnosed or untreated condition. The patient accepts these risks, able to verbally repeated back to me about the risk of signing out against medical advice, and is in my judgment is competent and capable of understanding the clinical situation and explanation of the risk of leaving. The patient is able to verbally repeated me back the above explained risks and benefits back to me, and verbally expressed understanding. Patient was given the opportunity to ask questions and change mind. The patient was instructed regarding the best care for the present symptoms, and to follow up as soon as possible with the primary care doctor including specialist or return to the emergency department at any time for continuing care. -You sign out against medical advice. you are given the zithromax for the sinusitis and you are advised to stay in the ER for continue of the care with possible admission. You decided to leave and please follow up with your own pmd /patient relations representative and neurologist as soon as possible, return to the ER if you wishes to continue the medical care. 08/15/17 18:16 -I spoke to DR. Aguila about the case, agreed that the patient should be observed over night. She will see the patient tomorrow if the patient sign out against medical advice. - Lab Interpretations Lab Results: 08/15/17 16:40 08/15/17 16:40 Lab Results 08/15/17 16:40: Alcohol, Quantitative < 10 08/15/17 16:40: Salicylates < 1 L, Acetaminophen < 10.0 L 08/15/17 16:40: Sodium 144, Potassium 4.3, Chloride 104, Carbon Dioxide 31, Anion Gap 14, BUN 13, Creatinine 0.6 L, Est GFR ( Amer) > 60, Est GFR ( Non-Af Amer) > 60, Random Glucose 124 H, Calcium 10.0, Magnesium 2.4 H, Total Bilirubin 0.5, AST 31, ALT 29, Alkaline Phosphatase 56, Lactate Dehydrogenase 621, Total Creatine Kinase 145, Troponin I < 0.01, NT-Pro-B Natriuret Pep 457 H , Total Protein 7.8, Albumin 4.7, Globulin 3.1, Albumin/Globulin Ratio 1.5 08/15/17 16:40: WBC 7.6 D, RBC 4.42, Hgb 14.0, Hct 42.1, MCV 95.2, MCH 31.7, MCHC 33.3, RDW 13.5, Plt Count 250, MPV 10.8, Gran % 74.9 H, Lymph % (Auto) 19.3 L, Bonner % (Auto) 5.4, Eos % (Auto) 0.3 L, Baso % (Auto) 0.1, Gran # 5.72, Lymph # (Auto) 1.5, Bonner # (Auto) 0.4, Eos # (Auto) 0.0, Baso # (Auto) 0.01 - RAD Interpretation Radiology Orders: 08/15/17 15:29 HEAD W/O CONTRAST [CT] Stat SHOULDER LEFT [RAD] Stat 08/15/17 15:37 CHEST ONE VIEW [RAD] Stat CT Head: HEMORRHAGE: No intracranial hemorrhage. BRAIN: Normal martinez-white matter differentiation and density are appreciated throughout the cerebrum and cerebellum with the brainstem appearing unremarkable as well. There is no mass effect. There is no suspicious extra-axial fluid collection and the midline brain anatomy appears diffusely unremarkable. VENTRICLES: Unremarkable. No hydrocephalus. CALVARIUM: Unremarkable. PARANASAL SINUSES: Mild left maxillary sinusitis. MASTOID AIR CELLS: Unremarkable as visualized. No inflammatory changes. OTHER FINDINGS: None. IMPRESSION: Unremarkable unenhanced head CT. Incidental changed her prior head CT 2013. Incidental left maxillary sinusitis. Lt. shoulder xray: Chest xray: Denitrator Operator: Radiologist - EKG Interpretation EKG Interpretation (Text): 08/15/17 15:36 NSR @ 91 BPM, RBBB with LVH and bifasicular block, no acute ST or T wave changes compared with 06/20/2017 ekg. Interpreted by ED Physician: Yes Comparison: Com.w/previous EKG - Medication Orders Current Medication Orders: Sodium Chloride (Sodium Chloride 0.9%) 1,000 mls @ 75 mls/hr IV .[id number] SALLY - PA / BUSINESS ANALYST [employer] / Resident Statement MD/DO has reviewed & agrees with the documentation as recorded. Disposition/Present on Arrival - Present on Arrival Any Indicators Present on Arrival: No History of DVT/PE: No History of Uncontrolled Diabetes: No Urinary Catheter: No History of Decub. Ulcer: No History Surgical Site Infection Following: None - Disposition Have Diagnosis and Disposition been Completed?: Yes Diagnosis: Syncope, Noncompliance by refusing service, Sinusitis Disposition: AGAINST MEDICAL ADVICE Disposition Time: 18:05 Patient Problems: Current Active Problems Problem Status Onset Noncompliance by refusing service Acute Sinusitis Acute Syncope Acute Condition: STABLE Discharge Instructions (ExitCare): Syncope (ED) Additional Instructions: -You sign out against medical advice. you are given the zithromax for the sinusitis and you are advised to stay in the ER for continue of the care with possible admission. You decided to leave and please follow up with your own pmd /patient relations representative and neurologist as soon as possible, return to the ER if you wishes to continue the medical care. Prescriptions: Azithromycin [Zithromax] 250 mg PO DAILY #6 tab Referrals: PCP,TIANNA [Non-Staff] - Follow up with primary Lori Aguila MD [Primary Care Provider] - Follow up with primary Princess Mariano MD [Staff Provider] - Follow up with primary Julio Martines MD [Staff Provider] - Follow up with primary Forms: WORK NOTE
[2017-08-15 15:27] VITALS: RESP 18; TEMP 98.2
[2017-08-15] MEDS ORDERED: Sodium Chloride 0.9% 1,000 ML IV SCH (15:30)
[2017-08-15 17:16] LABS: ACETAMINOPHEN < 10.0 ug/ml (10.0-20.0); SALICYLATE < 1 mg/dL (2.0-20.0)
[2017-08-15 17:19] LABS: ALB/GLOB RATIO 1.5 (1.1-1.8); ALBUMIN 4.7 g/dL (3.0-4.8); ALT/SGPT 29 U/L (7-56); AST/SGOT 31 U/L (14-36); BLOOD UREA NITROGEN 13 mg/dL (7-21); GFR AFRICAN-AMERICAN > 60; GFR NON-AFRICAN AMERICAN > 60
--- NOTE | 2017-08-15 17:30 | CT ---
PROCEDURE: CT HEAD WITHOUT CONTRAST. HISTORY: syncope, r/o bleed COMPARISON: Unenhanced head CT 06/08/2013. TECHNIQUE: Axial computed tomography images were obtained through the head/brain without intravenous contrast. Radiation dose: Total exam DLP = 927.78 mGy-cm. This CT exam was performed using one or more of the following dose reduction techniques: Automated exposure control, adjustment of the mA and/or kV according to patient size, and/or use of iterative reconstruction technique. FINDINGS: HEMORRHAGE: No intracranial hemorrhage. BRAIN: Normal martinez-white matter differentiation and density are appreciated throughout the cerebrum and cerebellum with the brainstem appearing unremarkable as well. There is no mass effect. There is no suspicious extra-axial fluid collection and the midline brain anatomy appears diffusely unremarkable. VENTRICLES: Unremarkable. No hydrocephalus. CALVARIUM: Unremarkable. PARANASAL SINUSES: Mild left maxillary sinusitis. MASTOID AIR CELLS: Unremarkable as visualized. No inflammatory changes. OTHER FINDINGS: None. IMPRESSION: Unremarkable unenhanced head CT. Incidental changed her prior head CT 06/08/2013. Incidental left maxillary sinusitis.
[2017-08-15 17:36] LABS: B-TYPE NATRIURETIC PEPTIDE 457 pg/mL (0-450); BASO # 0.01 K/mm3 (0.0-2.0); BASO % 0.1 % (0.0-3.0); EOS % 0.3 % (1.5-5.0); GRAN # 5.72 (1.4-6.5); GRAN % 74.9 % (50.0-68.0); LYMPH # 1.5 (1.2-3.4); LYMPH % 19.3 % (22.0-35.0); MEAN CELL VOLUME 95.2 fl (80.0-105.0); MEAN CORPUSCULAR HEMOGLOBIN 31.7 pg (25.0-35.0); MEAN CORPUSCULAR HGB CONC 33.3 g/dl (31.0-37.0); MEAN PLATELET VOLUME 10.8 fl (7.0-11.0); MONO # 0.4 (0.1-0.6); MONO % 5.4 % (1.0-6.0); RBC 4.42 10^6/uL (3.5-6.1); RED CELL DISTRIBUTION WIDTH 13.5 % (11.5-14.5); TROPONIN I < 0.01 ng/mL; WHITE BLOOD COUNT 7.6 10^3/ul (4.5-11.0)
[2017-08-15 18:36] VITALS: BP 137/74; PULSE 79; O2SAT 98
[2017-08-15 18:54] LABS: PH,URINE 6.5 (4.7-8.0); URINE BILIRUBIN NEGATIVE (NEGATIVE); URINE BLOOD NEGATIVE (NEGATIVE); URINE GLUCOSE (UA) NEGATIVE (NEGATIVE); URINE LEUKOCYTE ESTERASE NEGATIVE Leu/uL (NEGATIVE); URINE PROTEIN NEGATIVE mg/dL (<30 mg/dL); URINE UROBILINOGEN 0.2 E.U./dL (<1 E.U./dL)
[2017-08-15 18:59] LABS: URINE APPEARANCE CLEAR (CLEAR); URINE COLOR LIGHT YELLOW (YELLOW)
--- NOTE | 2017-08-16 08:11 | RAD ---
PROCEDURE: CHEST RADIOGRAPH, 1 VIEW HISTORY: medical clearance COMPARISON: Portable chest 06/20/2017. FINDINGS: LUNGS: No interval acute infiltrate bilaterally. PLEURA: No pneumothorax or pleural fluid seen. CARDIOVASCULAR: Cardiac silhouette remains mildly enlarged. No pulmonary vascular derangement. OSSEOUS STRUCTURES: No significant abnormalities. VISUALIZED UPPER ABDOMEN: Normal. OTHER FINDINGS: None. IMPRESSION: No interval acute cardiopulmonary disease appreciated. Stable cardiomegaly.
--- NOTE | 2017-08-16 08:12 | RAD ---
PROCEDURE: Radiographs of the Left Shoulder HISTORY: lt. shoulder pain from syncope COMPARISON: No prior. FINDINGS: BONES: No acute fracture or destructive bony lesion identified. JOINTS: Degenerative sclerosis appreciated at the acromioclavicular and glenohumeral joints with fibrocystic changes suggests at the humeral head superolaterally. SOFT TISSUES: Normal. OTHER FINDINGS: None. IMPRESSION: No acute fracture or dislocation. Degenerative changes as discussed above.
--- NOTE | 2017-08-16 10:13 | CARD ---
APPROVED REPORT EKG Measurement Heart [id number] FL 178P58 [id number] <Conclusion> Normal sinus rhythm Right bundle branch block Left anterior fascicular block Bifascicular block Voltage criteria for left ventricular hypertrophy Abnormal ECG
== END 2017-08-15 18:36 | disposition left against medical advice (07) ==
LOC: ED 15:09
DX: R55 Syncope and collapse (principal); J32.9 Chronic sinusitis, unspecified; Z91.19 Patient's noncompliance with other medical treatment and regimen; I10 Essential (primary) hypertension; E11.9 Type 2 diabetes mellitus without complications; D64.9 Anemia, unspecified; Z87.891 Personal history of nicotine dependence

== ENCOUNTER 2017-08-29 09:57 | Emergency (ER) | payer OTHER, MEDICARE ==
[2017-08-29 10:02] VITALS: BMI 23.5
[2017-08-29 10:13] VITALS: BP 153/97; PULSE 99; RESP 20; TEMP 98.1; O2SAT 98
--- NOTE | 2017-08-29 10:15 | ED PDOC ---
Arrival/HPI - General Chief Complaint: ENT Problem Time Seen by Provider: 08/29/17 09:59 Historian: Patient, Spouse - History of Present Illness Time/Duration: Prior to Arrival Symptom Course: Unchanged Severity Level: Moderate Activities at Onset: Rest Associated Symptoms (Text): 08/29/17 10:12 Patient complains of feeling a foreign body sensation in her left ear since this morning upon awakening. She feels as if something is moving in her ear. No sore throat. No fever or chills. No cough or congestion. No injury or trauma. Past Medical History - Infectious Disease Hx of Infectious Diseases: None - Tetanus Immunization Tetanus Immunization: Unknown - Cardiac Hx Cardiac Disorders: Yes ([place] 06/09/13, DVT s/p filter,ANGIOPLASTY) Hx Hypertension: Yes - Pulmonary Hx Chronic Obstructive Pulmonary Disease (COPD): Yes (O2 @ Home) - Neurological HX Cerebrovascular Accident: Yes - HEENT Hx HEENT Disorder: Yes Hx Cataracts: (Unknown) Hx Deafness: Yes ([place]) Hx Difficulty Chewing: No Hx Glaucoma: Yes - Renal Hx Renal Disorder: No Hx Dialysis: No - Endocrine/Metabolic Hx Diabetes Mellitus Type 2: Yes Hx Hypothyroidism: Yes - Hematological/Oncological Hx Blood Disorders: Yes Hx Anemia: Yes (BT) Hx Cancer: No - Integumentary Hx Dermatological Disorder: Yes Other/Comment: bilateral arms eccymotic areas - Musculoskeletal/Rheumatological Hx Musculoskeletal Disorders: Yes Hx Falls: Yes - Gastrointestinal Hx Gastrointestinal Disorders: Yes (hiatal hernia, umbilical hernia) Hx Diverticulitis: Yes (and diverticulosis) Hx Gall Bladder Disease: Yes (CHOLECYSTECTOMY) Hx Gastroesophageal Reflux: Yes Hx Liver Failure: No Hx Pancreatitis: Yes HX Swallowing Problems: No - Genitourinary/Gynecological Hx Genitourinary Disorders: Yes Hx Incontinence: Yes 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 - Psychiatric Hx Psychophysiologic Disorder: Yes Hx Anxiety: Yes Hx Depression: Yes Hx Substance Use: No - Surgical History Hx Cholecystectomy: Yes Hx Coronary Stent: Yes (06/09/13) Other/Comment: Hernia Surgery-15 June 2016 - Anesthesia Hx Anesthesia Reactions: No Hx Malignant Hyperthermia: No - Suicidal Assessment Feels Threatened In Home Enviroment: No Family/Social History - Physician Review Nursing Documentation Reviewed: Yes Family/Social History: Unknown Family HX Smoking Status: Former Smoker Hx Alcohol Use: No Hx Substance Use: No Hx Substance Use Treatment: No Allergies/Home Meds Allergies/Adverse Reactions: Allergies amoxicillin [From Augmentin] Allergy (Verified 02/02/17 20:38) RASH ciprofloxacin [From Cipro] Allergy (Verified 02/02/17 20:38) RASH ciprofloxacin HCl [From Cipro] Allergy (Verified 02/02/17 20:38) RASH clavulanic acid [From Augmentin] Allergy (Verified 02/02/17 20:38) RASH iodine Allergy (Verified 02/02/17 20:38) RASH linezolid [From Zyvox] Allergy (Verified 02/02/17 20:38) REDNESS Sulfa (Sulfonamide Antibiotics) Allergy (Verified 02/02/17 20:38) RASH tiotropium bromide [From Spiriva with HandiHaler] Allergy (Verified 02/02/17 20: 38) RASH seafood Allergy (Uncoded 02/02/17 20:38) RASH Home Medications: Home Meds Medication Instructions Recorded Confirmed Alprazolam [Xanax] 0.5 mg PO BID 11/11/16 08/29/17 Aspirin [Adult Low Dose Aspirin EC] 81 mg PO DAILY 11/11/16 08/29/17 Budesonide/Formoterol Fumarate 2 puff IH DAILY 11/11/16 08/29/17 [Symbicort 80-4.5 Mcg Inhaler] Cetirizine HCl [Zyrtec] 10 mg PO DAILY 11/11/16 08/29/17 Diclofenac Sodium [Voltaren] 1 appl TP TID 11/11/16 08/29/17 Ergocalciferol (Vitamin D2) 50,000 unit PO QWK 11/11/16 08/29/17 [Vitamin D2] Hydrocodone/Acetaminophen [[place] 1 each PO TID 11/11/16 08/29/17 10-325 Tablet] Levalbuterol [Xopenex] 0.63 mg IH Q6H 11/11/16 08/29/17 Levothyroxine [Synthroid] 137 mcg PO DAILY 11/11/16 08/29/17 Lisinopril [Zestril] 5 mg PO DAILY 11/11/16 08/29/17 Metoprolol Succinate 25 mg PO DAILY 11/11/16 08/29/17 Pantoprazole [Protonix EC Tab] 40 mg PO DAILY 11/11/16 08/29/17 Polyethylene Glycol 3350 [Miralax] 17 gm PO HS 11/11/16 08/29/17 Potassium Chloride [K-Dur 20 mEq 20 meq PO DAILY 11/11/16 08/29/17 ER Tab] Simvastatin [Zocor] 20 mg PO DAILY 11/11/16 08/29/17 Review of Systems - Physician Review All systems were reviewed & negative as marked: Yes Physical Exam Vital Signs Temp Pulse Resp BP Pulse Ox 08/29/17 10:08 98.1 F 99 H 20 153/97 H 98 Temperature: Afebrile Blood Pressure: Hypertensive Pulse: Regular Respiratory Rate: Normal Appearance: Positive for: Well-Appearing, Non-Toxic, Comfortable, Other ( chronic respiratory distress, no different from usual.) Pain Distress: None Mental Status: Positive for: Alert and Oriented X 3 - Systems Exam Head: Present: Atraumatic, Normocephalic Pupils: Present: PERRL Extroacular Muscles: Present: EOMI Conjunctiva: Present: Normal Ears: Present: Erythema, Normal Canal, Other (left otitis media. Right clear.) . No: NORMAL TM, TM Bulging, TM Perf Mouth: Present: Moist Mucous Membranes Pharnyx: No: ERYTHEMA, EXUDATE, TONSILS ENLARGED Nose (Internal): Present: Normal Inspection Respiratory/Chest: Present: Wheezes Cardiovascular: Present: Regular Rate and Rhythm, Normal S1, S2. No: Murmurs Disposition/Present on Arrival - Present on Arrival Any Indicators Present on Arrival: No History of DVT/PE: No History of Uncontrolled Diabetes: No Urinary Catheter: No History of Decub. Ulcer: No History Surgical Site Infection Following: None - Disposition Have Diagnosis and Disposition been Completed?: Yes Diagnosis: COPD (chronic obstructive pulmonary disease), Otitis media Disposition: HOME/ ROUTINE Disposition Time: 10:15 Patient Plan: Discharge Condition: GOOD Discharge Instructions (ExitCare): Ear Infections (Otitis Media), Chronic Obstructive Pulmonary Disease (COPD), Including Emphysema Additional Instructions: Tylenol or Advil as directed on bottle as needed. Follow-up with PMD. Follow up in ER as needed. Prescriptions: Azithromycin [Zithromax] 250 mg PO DAILY #6 tab
== END 2017-08-29 10:29 | disposition home or self-care (01) ==
LOC: ED 09:57
DX: J44.9 Chronic obstructive pulmonary disease, unspecified (principal); H66.92 Otitis media, unspecified, left ear; Z87.891 Personal history of nicotine dependence

== ENCOUNTER 2018-03-13 01:39 | Observation (INO) | payer OTHER, MEDICARE ==
[2018-03-13 01:48] VITALS: BMI 24.0
--- NOTE | 2018-03-13 01:57 | ED PDOC ---
Arrival/HPI - General Chief Complaint: Abdominal Pain Time Seen by Provider: 03/13/18 01:45 Historian: Patient - History of Present Illness Narrative History of Present Illness (Text): 03/13/18 01:57 67 year old female, whose past medical history includes COPD, hypertension, CAD s/p angioplasty, hyperlipidemia, hiatal hernia repair, and cholecystectomy, presents to the emergency department complaining of sudden onset of abdominal discomfort associated with episodes of vomiting that began this evening. Patient states she is vomiting mainly liquids. She states her last meal was earlier this evening and feels that the food may have been possibly bad. She believes it may have caused the symptoms, but is not sure. Patient denies any fever, chills, chest pain, shortness of breath, diarrhea, urinary symptoms, back pain, neck pain, headache, dizziness, or any other complaints. Time/Duration: Other (this evening) Symptom Onset: Sudden Symptom Course: Unchanged Activities at Onset: Light Context: Home Past Medical History - Provider Review Nursing Documentation Reviewed: Yes - Infectious Disease Hx of Infectious Diseases: None - Tetanus Immunization Tetanus Immunization: Unknown - Cardiac Hx Cardiac Disorders: Yes ([place] 06/09/13, DVT s/p filter,ANGIOPLASTY) Hx Hypertension: Yes - Pulmonary Hx Chronic Obstructive Pulmonary Disease (COPD): Yes (2L O2 @ Home) - Neurological HX Cerebrovascular Accident: Yes - HEENT Hx HEENT Disorder: Yes Hx Cataracts: (Unknown) Hx Deafness: Yes ([place]) Hx Difficulty Chewing: No Hx Glaucoma: Yes - Renal Hx Renal Disorder: No Hx Dialysis: No - Endocrine/Metabolic Hx Diabetes Mellitus Type 2: Yes Hx Hypothyroidism: Yes - Hematological/Oncological Hx Blood Disorders: Yes Hx Anemia: Yes ([place]) Hx Cancer: No - Integumentary Hx Dermatological Disorder: Yes Other/Comment: bilateral arms eccymotic areas - Musculoskeletal/Rheumatological Hx Musculoskeletal Disorders: Yes Hx Falls: Yes - Gastrointestinal Hx Gastrointestinal Disorders: Yes (hiatal hernia, umbilical hernia) Hx Diverticulitis: Yes (and diverticulosis) Hx Gall Bladder Disease: Yes (CHOLECYSTECTOMY) Hx Gastroesophageal Reflux: Yes Hx Liver Failure: No Hx Pancreatitis: Yes HX Swallowing Problems: No - Genitourinary/Gynecological Hx Genitourinary Disorders: Yes Hx Incontinence: Yes 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 - Psychiatric Hx Psychophysiologic Disorder: Yes Hx Anxiety: Yes Hx Depression: Yes Hx Substance Use: No - Surgical History Hx Cholecystectomy: Yes Hx Coronary Stent: Yes (06/09/13) Other/Comment: Hernia Surgery-15 June 2016 - Anesthesia Hx Anesthesia Reactions: No Hx Malignant Hyperthermia: No - Suicidal Assessment Feels Threatened In Home Enviroment: No Family/Social History - Physician Review Nursing Documentation Reviewed: Yes Family/Social History: No Known Family HX Smoking Status: Former Smoker Hx Alcohol Use: No Hx Substance Use: No Hx Substance Use Treatment: No Allergies/Home Meds Allergies/Adverse Reactions: Allergies amoxicillin [From Augmentin] Allergy (Verified 03/13/18 01:48) RASH ciprofloxacin [From Cipro] Allergy (Verified 03/13/18 01:48) RASH ciprofloxacin HCl [From Cipro] Allergy (Verified 03/13/18 01:48) RASH clavulanic acid [From Augmentin] Allergy (Verified 03/13/18 01:48) RASH iodine Allergy (Verified 03/13/18 01:48) RASH linezolid [From Zyvox] Allergy (Verified 03/13/18 01:48) REDNESS Sulfa (Sulfonamide Antibiotics) Allergy (Verified 03/13/18 01:48) RASH tiotropium bromide [From Spiriva with HandiHaler] Allergy (Verified 03/13/18 01:48) RASH seafood Allergy (Uncoded 03/13/18 01:48) RASH Home Medications: Home Meds Medication Instructions Recorded Confirmed Alprazolam [Xanax] 0.5 mg PO BID 11/11/16 03/13/18 Aspirin [Adult Low Dose Aspirin EC] 81 mg PO DAILY 11/11/16 03/13/18 Budesonide/Formoterol Fumarate 2 puff IH DAILY 11/11/16 03/13/18 [Symbicort 80-4.5 Mcg Inhaler] Cetirizine HCl [Zyrtec] 10 mg PO DAILY 11/11/16 03/13/18 Diclofenac Sodium [Voltaren] 1 appl TP TID 11/11/16 03/13/18 Ergocalciferol (Vitamin D2) 50,000 unit PO QWK 11/11/16 03/13/18 [Vitamin D2] Levothyroxine [Synthroid] 137 mcg PO DAILY 11/11/16 03/13/18 Lisinopril [Zestril] 5 mg PO DAILY 11/11/16 03/13/18 Metoprolol Succinate 25 mg PO DAILY 11/11/16 03/13/18 Pantoprazole [Protonix EC Tab] 40 mg PO DAILY 11/11/16 03/13/18 Potassium Chloride [K-Dur 20 mEq 20 meq PO DAILY 11/11/16 03/13/18 ER Tab] Simvastatin [Zocor] 20 mg PO DAILY 11/11/16 03/13/18 Polyethylene Glycol 3350 [Miralax] 1 packet PO HS 03/13/18 03/13/18 predniSONE [predniSONE Tab] 5 mg PO BID 03/13/18 03/13/18 Review of Systems - Physician Review All systems were reviewed & negative as marked: Yes - Review of Systems Constitutional: absent: Fevers, Other (Chills) Respiratory: absent: SOB Cardiovascular: absent: Chest Pain Gastrointestinal: Abdominal Pain, Vomiting. absent: Diarrhea Genitourinary Female: absent: Dysuria, Frequency, Hematuria Musculoskeletal: absent: Back Pain, Neck Pain Neurological: absent: Headache, Dizziness Physical Exam Vital Signs Reviewed: Yes Vital Signs Temp Pulse Resp BP Pulse Ox 03/13/18 01:54 97.9 F 108 H 20 121/94 H 97 Temperature: Afebrile Blood Pressure: Normal Pulse: Tachycardic Respiratory Rate: Normal Appearance: Positive for: Well-Appearing, Non-Toxic, Comfortable Pain Distress: None Mental Status: Positive for: Alert and Oriented X 3 - Systems Exam Head: Present: Atraumatic, Normocephalic Pupils: Present: PERRL Extroacular Muscles: Present: EOMI Conjunctiva: Present: Normal Mouth: Present: Moist Mucous Membranes Neck: Present: Normal Range of Motion Respiratory/Chest: Present: Clear to Auscultation, Good Air Exchange. No: Respiratory Distress, Accessory Muscle Use Cardiovascular: Present: Regular Rate and Rhythm, Normal S1, S2. No: Murmurs Abdomen: Present: Tenderness (diffuse palpable tenderness to the mid and upper abdomen ). No: Distention, Normal Bowel Sounds (decreased bowel sounds), Peritoneal Signs Back: Present: Normal Inspection Upper Extremity: Present: Normal Inspection, Normal ROM. No: Cyanosis, Edema Lower Extremity: Present: Normal Inspection, Normal ROM. No: Edema Neurological: Present: GCS=15, CN II-XII Intact, Speech Normal Skin: Present: Warm, Dry, Normal Color. No: Rashes Psychiatric: Present: Alert, Oriented x 3, Normal Insight, Normal Concentration Medical Decision Making ED Course and Treatment: 03/13/18 01:57 Impression: 67 year old female presents complaining of onset of abdominal discomfort this evening associated with episodes of vomiting. Plan: -- CT Abd and pelvis w/o contrast -- Labs -- EKG -- Chest X-ray -- Pepcid, IV Fluids, Zofran Inj -- Reassess and disposition Prior Visits: Notes and results from previous visits were reviewed. Progress Notes: 03/13/18 01:48 EKG shows Sinus Tachycardia at 105 BPM with RBBB, LVH. Interpreted by me. 03/13/18 03:00 CXR Impression: As read by me, no acute process. CT SCAN OF THE ABDOMEN AND PELVIS WITHOUT ORAL OR IV CONTRAST Electronically signed on Mar 13, 2018 3:43:12 AM EDT by: Petar Miner M.D. IMPRESSION: Ileus versus developing partial low-grade small bowel obstruction. Clinical evaluation and followup exam is suggested. No bowel perforation or pneumatosis intestinalis. 03/13/18 04:[address] Saucedo covering for Dr. Aguila who is aware and agrees with the plan. Accepts patient into his service and requests Dr. Reeder for consult. - Lab Interpretations I have reviewed the lab results: Yes - EKG Interpretation Interpreted by ED Physician: Yes Type: 12 lead EKG - Scribe Statement The provider has reviewed the documentation as recorded by the Danny Shen Provider Scribe Attestation: All medical record entries made by the Dileepibmelissa were at my direction and personally dictated by me. I have reviewed the chart and agree that the record accurately reflects my personal performance of the history, physical exam, medical decision making, and the department course for this patient. I have also personally directed, reviewed, and agree with the discharge instructions and disposition. Disposition/Present on Arrival - Present on Arrival Any Indicators Present on Arrival: No History of DVT/PE: No History of Uncontrolled Diabetes: No Urinary Catheter: No History of Decub. Ulcer: No History Surgical Site Infection Following: None - Disposition Have Diagnosis and Disposition been Completed?: Yes Diagnosis: Small bowel obstruction, Ileus Disposition: HOSPITALIZED Disposition Time: 04:06 Patient Plan: Observation Patient Problems: Current Active Problems Problem Status Onset Ileus Acute Small bowel obstruction Acute Condition: STABLE Forms: [facility] ([place])
[2018-03-13] MEDS ORDERED: Sodium Chloride 0.9% 1,000 ML IV SCH (02:00)
[2018-03-13 02:05] LABS: HEMOGLOBIN 13.5 g/dL (12.0-16.0); MEAN CELL VOLUME 94.9 fl (80.0-105.0); MEAN CORPUSCULAR HEMOGLOBIN 31.2 pg (25.0-35.0); MEAN CORPUSCULAR HGB CONC 32.8 g/dl (31.0-37.0); MEAN PLATELET VOLUME 10.3 fl (7.0-11.0); RBC 4.33 10^6/uL (3.5-6.1); WHITE BLOOD COUNT 12.5 10^3/ul (4.5-11.0)
[2018-03-13 02:17] LABS: ALB/GLOB RATIO 1.6 (1.1-1.8); ALBUMIN 4.8 g/dL (3.0-4.8); BLOOD UREA NITROGEN 22 mg/dL (7-21); CALCIUM 9.5 mg/dL (8.4-10.5); GFR NON-AFRICAN AMERICAN > 60; LIPASE 95 U/L (23-300)
[2018-03-13 02:18] LABS: ALT/SGPT 25 U/L (7-56); AST/SGOT 34 U/L (14-36)
[2018-03-13] MEDS ORDERED: metroNIDAZOLE IV 500 mg/100 ml 500 MG/100 ML BAG IVPB STA (04:05)
[2018-03-13] MEDS ORDERED: Aztreonam 1 Gm in NS 100mL 100 ML IVPB STA (04:05)
[2018-03-13] MEDS ORDERED: Morphine 2 mg/ml ISec IVP STA (04:08)
--- NOTE | 2018-03-13 07:37 | CP.PCM.CON ---
History of Present Illness - History of Present Illness History of Present Illness: General Surgery Consult Note for Dr. Reeder CC: Back pain This is a 67F with HTN, PVD, COPD, NSTEMI, CAD s/p angioplasty, hiatal hernia, umbilical hernia, diverticulosis she presents because yesterday she was at a when she developed right sided back pain, then she went to [facility] where she ate chicken. She then had 5 bowel movements the first was dark and the following were brown and formed. She then through up clear emesis followed by slighty brown emesis. PMH: HTN, PVD, COPD, NSTEMI, CAD s/p angioplasty, hiatal hernia, umbilical hernia, diverticulosis PSH: cholecystectomy, ventral hernia repair, ex-lap with removal of mesh, cardiac cath () All: PCN, Quinilones, Sulfa, Iodine, Zyvox Review of Systems - Review of Systems Review of Systems: 12 point review of systems conducted and negative aside from back pain, abd piain and SOB. Past Patient History - Infectious Disease Hx of Infectious Diseases: None - Tetanus Immunizations Tetanus Immunization: Unknown - Past Social History Smoking Status: Former Smoker - CARDIAC Hx Cardiac Disorders: Yes ([place] 06/09/13, DVT s/p filter,ANGIOPLASTY) Hx Hypertension: Yes - PULMONARY Hx Chronic Obstructive Pulmonary Disease (COPD): Yes (2L O2 @ Home) - NEUROLOGICAL HX Cerebrovascular Accident: Yes - HEENT Hx HEENT Problems: Yes Hx Cataracts: (Unknown) Hx Deafness: Yes ([place]) Hx Difficulty Chewing: No Hx Glaucoma: Yes - RENAL Hx Chronic Kidney Disease: No Hx Dialysis: No - ENDOCRINE/METABOLIC Hx Diabetes Mellitus Type 2: Yes Hx Hypothyroidism: Yes - HEMATOLOGICAL/ONCOLOGICAL Hx Blood Disorders: Yes Hx Anemia: Yes (BT) Hx Cancer: No - INTEGUMENTARY Hx Dermatological Problems: Yes Other/Comment: bilateral arms eccymotic areas - MUSCULOSKELETAL/RHEUMATOLOGICAL Hx Musculoskeletal Disorders: Yes Hx Falls: Yes - GASTROINTESTINAL Hx Gastrointestinal Disorders: Yes (hiatal hernia, umbilical hernia) Hx Diverticulitis: Yes (and diverticulosis) Hx Gall Bladder Disease: Yes (CHOLECYSTECTOMY) Hx Gastroesophageal Reflux: Yes Hx Liver Failure: No Hx Pancreatitis: Yes HX Swallowing Problems: No - GENITOURINARY/GYNECOLOGICAL Hx Genitourinary Disorders: Yes Hx Incontinence: Yes 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 - PSYCHIATRIC Hx Psychophysiologic Disorder: Yes Hx Anxiety: Yes Hx Depression: Yes Hx Substance Use: No - SURGICAL HISTORY Hx Cholecystectomy: Yes Hx Coronary Stent: Yes (06/09/13) Other/Comment: Hernia Surgery-15 June 2016 - ANESTHESIA Hx Anesthesia Reactions: No Hx Malignant Hyperthermia: No Meds Allergies/Adverse Reactions: Allergies Allergy/AdvReac Type Severity Reaction Status Date / Time amoxicillin [From Augmentin] Allergy RASH Verified 03/13/18 01:48 ciprofloxacin [From Cipro] Allergy RASH Verified 03/13/18 01:48 ciprofloxacin HCl Allergy RASH Verified 03/13/18 01:48 [From Cipro] clavulanic acid Allergy RASH Verified 03/13/18 01:48 [From Augmentin] iodine Allergy RASH Verified 03/13/18 01:48 linezolid [From Zyvox] Allergy REDNESS Verified 03/13/18 01:48 Sulfa (Sulfonamide Allergy RASH Verified 03/13/18 01:48 Antibiotics) tiotropium bromide Allergy RASH Verified 03/13/18 01:48 [From Spiriva with HandiHaler] seafood Allergy RASH Uncoded 03/13/18 01:48 - Medications Medications: Current Medications Sodium Chloride (Sodium Chloride 0.9%) 1,000 mls @ 100 mls/hr IV .Q10H SALLY Last Admin: 03/13/18 02:09 Dose: 100 mls/hr Ondansetron HCl (Zofran Inj) 4 mg IVP Q6H PRN PRN Reason: Nausea/Vomiting Stop: 03/13/18 12:00 Pneumococcal Polyvalent Vaccine (Pneumovax 23 Vaccine) 0.5 ml IM .ONCE ONE Stop: 03/16/18 10:01 Physical Exam - Constitutional Appears: Non-toxic, No Acute Distress - Head Exam Head Exam: ATRAUMATIC, NORMOCEPHALIC - Eye Exam Eye Exam: EOMI - ENT Exam ENT Exam: Mucous Membranes Moist - Respiratory Exam Respiratory Exam: Accessory Muscle Use - Cardiovascular Exam Cardiovascular Exam: +S1, +S2 - GI/Abdominal Exam GI & Abdominal Exam: Hernia, Soft, Tenderness. absent: Distended, Firm, Guarding - Neurological Exam Neurological exam: Alert, Oriented x3 - Psychiatric Exam Psychiatric exam: Normal Affect, Normal Mood - Skin Skin Exam: Dry, Intact Results - Vital Signs Recent Vital Signs: Last Vital Signs Temp 98.2 F 03/13/18 04:55 Pulse 79 03/13/18 04:55 Resp 20 03/13/18 05:02 BP 140/75 03/13/18 04:55 Pulse Ox 99 03/13/18 04:55 - Labs Result Diagrams: 03/13/18 01:50 03/13/18 01:50 Labs: Laboratory Results - last 24 hr 03/13/18 03/13/18 01:50 01:50 WBC 12.5 H D RBC 4.33 Hgb 13.5 Hct 41.1 MCV 94.9 MCH 31.2 MCHC 32.8 RDW 13.0 Plt Count 246 MPV 10.3 Sodium 141 Potassium 4.3 Chloride 102 Carbon Dioxide 26 Anion Gap 17 BUN 22 H Creatinine 0.7 Est GFR ( Amer) > 60 Est GFR (Non-Af Amer) > 60 Random Glucose 111 H Calcium 9.5 Total Bilirubin 0.8 AST 34 ALT 25 Alkaline Phosphatase 60 Total Protein 7.8 Albumin 4.8 Globulin 3.0 Albumin/Globulin Ratio 1.6 Lipase 95 Assessment & Plan - Assessment and Plan (Free Text) Assessment: 67F with back pain Pt refuses colonoscopy, endoscopy or surgery CT scan showes stool in ascending colon and transverse colon and liquid in small bowl NPO IVF Monitor Bowel function Milton Montes PGY3
[2018-03-13] MEDS ORDERED: Levothyroxine 125 MCG TAB PO SCH (10:00)
[2018-03-13] MEDS ORDERED: Metoprolol Succinate 25 mg XL Tab PO SCH (10:00)
--- NOTE | 2018-03-13 10:07 | CT ---
Date of service: 03/13/2018 PROCEDURE: CT Abdomen and Pelvis without intravenous contrast HISTORY: pain COMPARISON: 06/20/2017. CT abdomen and pelvis. TECHNIQUE: Unenhanced. Neither IV nor oral contrast administered Radiation dose: Total exam DLP = 593.93 mGy-cm. This CT exam was performed using one or more of the following dose reduction techniques: Automated exposure control, adjustment of the mA and/or kV according to patient size, and/or use of iterative reconstruction technique. FINDINGS: LOWER THORAX: Unremarkable. LIVER: Hepatomegaly without focal abnormality. GALLBLADDER AND BILE DUCTS: Status post cholecystectomy. No abnormality is seen in the gallbladder fossa. PANCREAS: Punctate calcifications within the pancreatic body may reflect the sequela of prior/chronic pancreatitis. Otherwise unremarkable pancreas. SPLEEN: Unremarkable. ADRENALS: Unremarkable. No mass. KIDNEYS AND URETERS: Unremarkable. No hydronephrosis. No solid mass. VASCULATURE: Calcified plaque identified in nonaneurysmal abdominal aorta and proximal iliac vessels. IVC filter documented. BOWEL: Diverticulosis without an acute inflammatory component or other associated pathologic process. Constipation without fecal impaction or obstruction. Non dilated, fluid-filled loops of small bowel identified, improved compared to the prior study. APPENDIX: No abnormalities to suggest acute appendicitis. No right lower quadrant inflammatory processes identified. PERITONEUM: Unremarkable. No free fluid. No free air. LYMPH NODES: Unremarkable. No enlarged lymph nodes. BLADDER: Unremarkable. REPRODUCTIVE: Unremarkable. BONES: No acute fracture. OTHER FINDINGS: None. IMPRESSION: Dilated small bowel the overall appearance suggests ileus rather than obstruction. Similar more pronounced changes noted previously. Concordant results (preliminary interpretation) provided by [email or web address]. Procedure Completed: 02:31. Preliminary Report: Dictated and Authenticated: 03:43. Final Interpretation: 10:03. March 13, 2018
--- NOTE | 2018-03-13 10:37 | RAD ---
Date of service: 03/13/2018 HISTORY: Abdominal pain. COMPARISON: 08/15/2017. FINDINGS: LUNGS: No active pulmonary disease. PLEURA: No significant pleural effusion identified, no pneumothorax apparent. CARDIOVASCULAR: Atherosclerotic calcifications identified primarily aortic arch. No radiographic findings to suggest acute or significant cardiovascular disease. OSSEOUS STRUCTURES: No significant abnormalities. VISUALIZED UPPER ABDOMEN: Normal. OTHER FINDINGS: None. IMPRESSION: No active disease. No significant interval change compared to the prior examination(s).
[2018-03-13] MEDS ORDERED: Dibucaine 1% Oint(1 oz) TOP PRN (11:46)
--- NOTE | 2018-03-13 12:22 | CARD ---
APPROVED REPORT Date of service: 03/13/2018 EKG Measurement Heart [id number] CT [id number] <Conclusion> Sinus tachycardia Possible Left atrial enlargement Right bundle branch block Left anterior fascicular block Bifascicular block Left ventricular hypertrophy with repolarization abnormality Abnormal ECG
--- NOTE | 2018-03-13 16:21 | HP ---
HISTORY OF PRESENT ILLNESS: Ms. Greer is a 67-year-old female with COPD, hypertension, status post angioplasty, hernia repair came to emergency department with abdominal discomfort, episodes of vomiting. CAT scan of the abdomen showed low-grade small bowel obstruction. She was evaluated by Dr. Reeder who cleared her for discharge today. PAST MEDICAL HISTORY: Diabetes mellitus type 2; hypothyroidism; COPD, terminal on home oxygen; CVA, cardiovascular accident; anemia; hiatal hernia; diverticulitis. PAST SURGICAL HISTORY: Cholecystectomy, coronary stent placement. FAMILY HISTORY: Noncontributory. PERSONAL HISTORY: Former smoker. No history of alcohol abuse. ALLERGIES: MULTIPLE DRUG ALLERGIES LISTED ON JUL. HOME MEDICATIONS: On JUL reviewed. REVIEW OF SYSTEMS: As per HPI. PHYSICAL EXAMINATION: GENERAL: Mild respiratory distress, sitting in bed. VITAL SIGNS: Temperature 97.9, heart rate is 100 per minute, respiratory rate 20 per minute, blood pressure 120/94, pulse ox is 97% on room air. HEENT: Pallor positive. NECK: No lymphadenopathy. CHEST: Air entry present and equal bilaterally. No added sounds. CARDIOVASCULAR: S1 and S2 normal. No murmur. No gallop. ABDOMEN: Soft and nontender. No hepatosplenomegaly. EXTREMITIES: No edema. SUPERINTENDENT SERVICE: Alert and oriented x3. No focal sensory motor deficit. CT abdomen is as per HPI. LABORATORY DATA: White count 12.5, hemoglobin 13.5, hematocrit 41.5. Sodium 141, potassium 4.3, creatinine 0.7. ASSESSMENT: 1. Small bowel re-obstruction. 2. History of diverticulitis. 3. Abdominal discomfort. 4. Chronic obstructive pulmonary disease, terminal. PLAN: Surgery consultation, Dr. Reeder requested. Discussed with Dr. Reeder. He cleared her for discharge. No significant finding on the review of the CAT scan related to diverticulitis or small bowel obstruction. She was allowed to drink liquids. Blood count stable. Chemistries normal. She will be discharged home today to continue on the home meds. Itzel Saucedo MD
--- NOTE | 2018-03-13 16:32 | DS ---
HISTORY OF PRESENT ILLNESS: Detailed note dictated on the same date, 03/13/2018. Date of discharge 03/13/2018. The patient is being discharged home in stable condition. Please refer to the detailed note dated under the same date. Itzel Saucedo MD
[2018-03-13 16:44] VITALS: BP 106/46; PULSE 78; RESP 18; TEMP 97.4; O2SAT 97
[2018-03-16] MEDS ORDERED: Pneumococcal 23-Valent Vaccine IM ONE (10:00)
== END 2018-03-13 16:58 | disposition home or self-care (01) ==
LOC: ED 01:39 → ERH 04:06 → 5RSO 05:30
PROVIDERS: ADMIT Internal Medicine; ATTEND Internal Medicine
DX: K56.609 Unspecified intestinal obstruction, unspecified as to partial versus complete obstruction (principal); K44.9 Diaphragmatic hernia without obstruction or gangrene; J44.9 Chronic obstructive pulmonary disease, unspecified; E11.51 Type 2 diabetes mellitus with diabetic peripheral angiopathy without gangrene; E03.9 Hypothyroidism, unspecified; D64.9 Anemia, unspecified; K57.90 Diverticulosis of intestine, part unspecified, without perforation or abscess without bleeding; K42.9 Umbilical hernia without obstruction or gangrene; I25.10 Atherosclerotic heart disease of native coronary artery without angina pectoris; I10 Essential (primary) hypertension; E78.5 Hyperlipidemia, unspecified; H40.9 Unspecified glaucoma; K21.9 Gastro-esophageal reflux disease without esophagitis; I25.2 Old myocardial infarction; Z86.73 Personal history of transient ischemic attack (TIA), and cerebral infarction without residual deficits; Z99.81 Dependence on supplemental oxygen; Z79.82 Long term (current) use of aspirin; Z87.891 Personal history of nicotine dependence; Z95.5 Presence of coronary angioplasty implant and graft; Z86.718 Personal history of other venous thrombosis and embolism
CPT/HCPCS: 71045; 74176; 80053; 83690; 85027; 87040; 93005; 96374; 96375; 99284; G0378; J2270; J2405; J7030

== ENCOUNTER 2018-03-17 22:36 | Observation (INO) | payer OTHER, MEDICARE ==
[2018-03-17 22:36] VITALS: BMI 24.0
[2018-03-17 23:31] LABS: HEMOGLOBIN 13.3 g/dL (12.0-16.0); MEAN CELL VOLUME 95.1 fl (80.0-105.0); MEAN CORPUSCULAR HEMOGLOBIN 31.1 pg (25.0-35.0); MEAN CORPUSCULAR HGB CONC 32.7 g/dl (31.0-37.0); MEAN PLATELET VOLUME 10.5 fl (7.0-11.0); RBC 4.28 10^6/uL (3.5-6.1); WHITE BLOOD COUNT 7.8 10^3/uL (4.5-11.0)
[2018-03-17] MEDS ORDERED: Morphine 2 mg/ml ISec IVP STA (23:42)
[2018-03-17 23:43] LABS: INR 0.92; PARTIAL THROMBOPLASTIN TIME 27.4 Seconds (25.1-36.5); PROTHROMBIN TIME 10.5 SECONDS (9.4-12.5)
[2018-03-17 23:56] LABS: TROPONIN I < 0.01 ng/mL
[2018-03-18 00:04] LABS: ALB/GLOB RATIO 1.5 (1.1-1.8); ALBUMIN 4.9 g/dL (3.0-4.8); ALT/SGPT 23 U/L (7-56); AST/SGOT 28 U/L (14-36); BLOOD UREA NITROGEN 15 mg/dL (7-21); CALCIUM 9.5 mg/dL (8.4-10.5); GFR NON-AFRICAN AMERICAN > 60
--- NOTE | 2018-03-18 00:10 | ED PDOC ---
Arrival/HPI - General Chief Complaint: Chest Pain Time Seen by Provider: 03/17/18 22:46 Historian: Patient - History of Present Illness Narrative History of Present Illness (Text): 03/18/18 23:47 67 year old female, whose past medical history includes COPD, hypertension, CAD, angioplasty, hyperlipidemia, and cholecystectomy, presents to the emergency department with intermittent chest pain, since earlier today. Patient informs of no associated shortness of breath. Patient states pain radiates to the left shoulder and arm. Patient informs taking sublingual nitroglycerin earlier with some relief. Patient denies any shortness of breath, leg pain, abdominal pain, fevers, chills, headache, dizziness, or any other complaint. Time/Duration: 4-6 hours Symptom Onset: Gradual Symptom Course: Unchanged Past Medical History - Provider Review Nursing Documentation Reviewed: Yes - Infectious Disease Hx of Infectious Diseases: None - Tetanus Immunization Tetanus Immunization: Unknown - Reproductive Menopause: No - Cardiac Hx Cardiac Disorders: Yes ([place] 06/09/13, DVT s/p filter,ANGIOPLASTY) Hx Hypertension: Yes - Pulmonary Hx Chronic Obstructive Pulmonary Disease (COPD): Yes (2L O2 @ Home) - Neurological HX Cerebrovascular Accident: Yes - HEENT Hx HEENT Disorder: Yes Hx Cataracts: (Unknown) Hx Deafness: Yes ([place]) Hx Difficulty Chewing: No Hx Glaucoma: Yes - Renal Hx Renal Disorder: No Hx Dialysis: No - Endocrine/Metabolic Hx Diabetes Mellitus Type 2: Yes Hx Hypothyroidism: Yes - Hematological/Oncological Hx Blood Disorders: Yes Hx Anemia: Yes (BT) Hx Cancer: No - Integumentary Hx Dermatological Disorder: Yes Other/Comment: bilateral arms eccymotic areas - Musculoskeletal/Rheumatological Hx Musculoskeletal Disorders: Yes Hx Falls: Yes - Gastrointestinal Hx Gastrointestinal Disorders: Yes (hiatal hernia, umbilical hernia) Hx Diverticulitis: Yes (and diverticulosis) Hx Gall Bladder Disease: Yes (CHOLECYSTECTOMY) Hx Gastroesophageal Reflux: Yes Hx Liver Failure: No Hx Pancreatitis: Yes HX Swallowing Problems: No - Genitourinary/Gynecological Hx Genitourinary Disorders: Yes Hx Incontinence: Yes 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 - Psychiatric Hx Psychophysiologic Disorder: Yes Hx Anxiety: Yes Hx Depression: Yes Hx Substance Use: No - Surgical History Hx Cholecystectomy: Yes Hx Coronary Stent: Yes (06/09/13) Other/Comment: Hernia Surgery-15 June 2016 - Anesthesia Hx Anesthesia Reactions: No Hx Malignant Hyperthermia: No - Suicidal Assessment Feels Threatened In Home Enviroment: No Family/Social History - Physician Review Nursing Documentation Reviewed: Yes Family/Social History: No Known Family HX Smoking Status: Former Smoker Hx Alcohol Use: No Hx Substance Use: No Hx Substance Use Treatment: No Allergies/Home Meds Allergies/Adverse Reactions: Allergies amoxicillin [From Augmentin] Allergy (Verified 03/17/18 22:43) RASH ciprofloxacin [From Cipro] Allergy (Verified 03/17/18 22:43) RASH ciprofloxacin HCl [From Cipro] Allergy (Verified 03/17/18 22:43) RASH clavulanic acid [From Augmentin] Allergy (Verified 03/17/18 22:43) RASH iodine Allergy (Verified 03/17/18 22:43) RASH linezolid [From Zyvox] Allergy (Verified 03/17/18 22:43) REDNESS Sulfa (Sulfonamide Antibiotics) Allergy (Verified 03/17/18 22:43) RASH tiotropium bromide [From Spiriva with HandiHaler] Allergy (Verified 03/17/18 22:43) RASH seafood Allergy (Uncoded 03/17/18 22:43) RASH Home Medications: Home Meds Medication Instructions Recorded Confirmed Alprazolam [Xanax] 0.5 mg PO BID 11/11/16 03/13/18 Aspirin [Adult Low Dose Aspirin EC] 81 mg PO DAILY 11/11/16 03/13/18 Budesonide/Formoterol Fumarate 2 puff IH DAILY 11/11/16 03/13/18 [Symbicort 80-4.5 Mcg Inhaler] Cetirizine HCl [Zyrtec] 10 mg PO DAILY 11/11/16 03/13/18 Diclofenac Sodium [Voltaren] 1 appl TP TID 11/11/16 03/13/18 Ergocalciferol (Vitamin D2) 50,000 unit PO QWK 11/11/16 03/13/18 [Vitamin D2] Levothyroxine [Synthroid] 137 mcg PO DAILY 11/11/16 03/13/18 Lisinopril [Zestril] 5 mg PO DAILY 11/11/16 03/13/18 Metoprolol Succinate 25 mg PO DAILY 11/11/16 03/13/18 Pantoprazole [Protonix EC Tab] 40 mg PO DAILY 11/11/16 03/13/18 Potassium Chloride [K-Dur 20 mEq 20 meq PO DAILY 11/11/16 03/13/18 ER Tab] Simvastatin [Zocor] 20 mg PO DAILY 11/11/16 03/13/18 Polyethylene Glycol 3350 [Miralax] 1 packet PO HS 03/13/18 03/13/18 predniSONE [predniSONE Tab] 5 mg PO BID 03/13/18 03/13/18 Review of Systems - Physician Review All systems were reviewed & negative as marked: Yes - Review of Systems Constitutional: absent: Fevers, Night Sweats Respiratory: absent: SOB Cardiovascular: Chest Pain. absent: Calf Pain Gastrointestinal: absent: Abdominal Pain Neurological: absent: Headache, Dizziness Physical Exam Vital Signs Reviewed: Yes Vital Signs Temp Pulse Resp BP Pulse Ox 03/17/18 22:49 98.3 F 95 H 12 145/49 L 96 Temperature: Afebrile Blood Pressure: Hypotensive Pulse: Tachycardic Respiratory Rate: Normal Appearance: Positive for: Well-Appearing, Non-Toxic, Comfortable Pain Distress: None Mental Status: Positive for: Alert and Oriented X 3 - Systems Exam Head: Present: Atraumatic, Normocephalic Pupils: Present: PERRL Extroacular Muscles: Present: EOMI Conjunctiva: Present: Normal Mouth: Present: Moist Mucous Membranes Neck: Present: Normal Range of Motion Respiratory/Chest: Present: Clear to Auscultation, Good Air Exchange. No: Respiratory Distress, Accessory Muscle Use Cardiovascular: Present: Regular Rate and Rhythm, Normal S1, S2. No: Murmurs Abdomen: No: Tenderness, Distention, Peritoneal Signs Back: Present: Normal Inspection Upper Extremity: Present: Normal Inspection. No: Cyanosis, Edema Lower Extremity: Present: Normal Inspection. No: Edema Neurological: Present: GCS=15, CN II-XII Intact, Speech Normal Skin: Present: Warm, Dry, Normal Color. No: Rashes Psychiatric: Present: Alert, Oriented x 3, Normal Insight, Normal Concentration Medical Decision Making ED Course and Treatment: 03/18/18 00:12 Impression: 67 year old female presents with chest pain. Plan: -- EKG -- Chest X-ray -- Aspirin -- Morphine -- Reassess and disposition Prior Visits: Notes and results from previous visits were reviewed. Progress Notes: 03/18/18 00:[address] Aguila who accepts patient to her service. - Lab Interpretations Lab Results: 03/17/18 22:50 03/17/18 22:50 Lab Results 03/17/18 22:50: Sodium Pending, Potassium Pending, Chloride Pending, Carbon Dioxide Pending, Anion Gap Pending, BUN Pending, Creatinine Pending, Est GFR ( Amer) Pending, Est GFR (Non-Af Amer) Pending, Random Glucose Pending, Calcium Pending, Total Bilirubin Pending, AST Pending, ALT Pending, Alkaline Phosphatase Pending, Lactate Dehydrogenase Pending, Total Creatine Kinase Pending, Troponin I < 0.01, Total Protein Pending, Albumin Pending, Globulin Pending, Albumin/Globulin Ratio Pending 03/17/18 22:50: PT 10.5, INR 0.92, APTT 27.4 03/17/18 22:50: WBC 7.8 D, RBC 4.28, Hgb 13.3, Hct 40.7, MCV 95.1, MCH 31.1, MCHC 32.7, RDW 13.0, Plt Count 249, MPV 10.5 - RAD Interpretation Radiology Orders: 03/17/18 23:23 CHEST PORTABLE [RAD] Stat - Medication Orders Current Medication Orders: Discontinued Medications Aspirin (Aspirin) 325 mg PO ONCE STA Stop: 03/17/18 23:43 Last Admin: 03/17/18 23:53 Dose: 325 mg Morphine Sulfate (Morphine) 2 mg IVP STAT STA Stop: 03/17/18 23:43 Last Admin: 03/17/18 23:53 Dose: 2 mg MAR Pain Assessment Document 03/17/18 23:53 CNR (Rec: 03/17/18 23:53 CNR [id number]) Pain Reassessment Is this a pain reassessment? No IVP Administration Document 03/17/18 23:53 CNR (Rec: 03/17/18 23:53 CNR [id number]) Charges for Administration # of IVP Administrations 1 - Scribe Statement The provider has reviewed the documentation as recorded by the Danny Ashby Provider Scribe Attestation: All medical record entries made by the Scribe were at my direction and personally dictated by me. I have reviewed the chart and agree that the record accurately reflects my personal performance of the history, physical exam, medical decision making, and the department course for this patient. I have also personally directed, reviewed, and agree with the discharge instructions and disposition. Disposition/Present on Arrival - Present on Arrival Any Indicators Present on Arrival: No History of DVT/PE: No History of Uncontrolled Diabetes: No Urinary Catheter: No History of Decub. Ulcer: No History Surgical Site Infection Following: None - Disposition Have Diagnosis and Disposition been Completed?: Yes Diagnosis: Chest pain Disposition: HOSPITALIZED Disposition Time: 00:34 Patient Plan: Observation Patient Problems: Current Active Problems Problem Status Onset Chest pain Acute Condition: STABLE Discharge Instructions (ExitCare): Chest Pain (ED) Forms: [employer] (Pashto)
[2018-03-18 05:34] VITALS: O2SAT 94
[2018-03-18] MEDS ORDERED: Albuterol 0.083% Inhal Sol (2.5 mg/3 mL) UD INH PRN (07:05)
--- NOTE | 2018-03-18 08:01 | CP.PCM.CON ---
History of Present Illness - History of Present Illness History of Present Illness: Awake, short of breath just talking, on nasal cannula Reason for consultation: Cardiac evaluation of chest pain, history of coronary a rtery disease with coronary stenting Brief history of present illness: A 67 year old female who came in to the ER due to intermittent chest pain radiating to left arm and left side of shoulder and jaw. She took some Nitroglycerin sublingual with some relief. History of coronary artery disease with PCI (06/12/13), hypertension, COPD, hyperlipidemia, cholecystectomy,diverticulitis, history of NSTEMI, VRE in urine,former smoker, takes oxygen at home. Seen and examined by me and Dr. Mariano Review of Systems - Review of Systems All systems: reviewed and no additional remarkable complaints except Review of Systems: as per HPI Past Patient History - Infectious Disease Hx of Infectious Diseases: None - Tetanus Immunizations Tetanus Immunization: Unknown - Past Social History Smoking Status: Former Smoker - CARDIAC Hx Cardiac Disorders: Yes ([place] 06/09/13, DVT s/p filter,ANGIOPLASTY) Hx Angina: Yes Hx Circulatory Problems: Yes Hx Hypercholesterolemia: Yes Hx Hypertension: Yes Hx Peripheral Vascular Disease: Yes - PULMONARY Hx Respiratory Disorders: Yes Hx Asthma: Yes Hx Bronchitis: Yes Hx Chronic Obstructive Pulmonary Disease (COPD): Yes (2L O2 @ Home) Hx Emphysema: Yes Hx Pneumonia: Yes Hx Tuberculosis: Yes - NEUROLOGICAL Hx Neurological Disorder: Yes HX Cerebrovascular Accident: Yes Hx Dementia: Yes Hx Dizziness: Yes Hx Parkinson's Disease: Yes Hx Seizures: Yes Hx Transient Ischemic Attacks (TIA): Yes - HEENT Hx Cataracts: Yes Hx Glaucoma: Yes - RENAL Hx Chronic Kidney Disease: No Hx Dialysis: No - ENDOCRINE/METABOLIC Hx Diabetes Mellitus Type 2: Yes Hx Hypothyroidism: Yes Hx Systemic Lupus Erythematosus: Yes - HEMATOLOGICAL/ONCOLOGICAL Hx Blood Disorders: Yes Hx Cancer: Yes - INTEGUMENTARY Hx Dermatological Problems: Yes Other/Comment: bilateral arms eccymotic areas - MUSCULOSKELETAL/RHEUMATOLOGICAL Hx Arthritis: Yes Hx Back Pain: Yes Hx Falls: Yes Hx Fractures: Yes Hx Herniated Disk: Yes Hx Osteoarthritis: Yes Hx Unsteady Gait: Yes - GASTROINTESTINAL Hx Gastrointestinal Disorders: Yes (hiatal hernia, umbilical hernia) Hx Diverticulitis: Yes (and diverticulosis) Hx Gall Bladder Disease: Yes (CHOLECYSTECTOMY) Hx Gastroesophageal Reflux: Yes Hx Liver Failure: No Hx Pancreatitis: Yes HX Swallowing Problems: No Hx Ulcer: Yes - GENITOURINARY/GYNECOLOGICAL Hx Genitourinary Disorders: Yes Hx Incontinence: Yes 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 - PSYCHIATRIC Hx Psychophysiologic Disorder: Yes Hx Anxiety: Yes Hx Depression: Yes - SURGICAL HISTORY Hx Cardiac Catheterization: Yes Hx Cholecystectomy: Yes Hx Coronary Stent: Yes (06/09/13) Other/Comment: Hernia Surgery-15 June 2016 - ANESTHESIA Hx Anesthesia Reactions: No Hx Malignant Hyperthermia: No Meds Allergies/Adverse Reactions: Allergies Allergy/AdvReac Type Severity Reaction Status Date / Time amoxicillin [From Augmentin] Allergy RASH Verified 03/17/18 22:43 ciprofloxacin [From Cipro] Allergy RASH Verified 03/17/18 22:43 ciprofloxacin HCl Allergy RASH Verified 03/17/18 22:43 [From Cipro] clavulanic acid Allergy RASH Verified 03/17/18 22:43 [From Augmentin] iodine Allergy RASH Verified 03/17/18 22:43 linezolid [From Zyvox] Allergy REDNESS Verified 03/17/18 22:43 Sulfa (Sulfonamide Allergy RASH Verified 03/17/18 22:43 Antibiotics) tiotropium bromide Allergy RASH Verified 03/17/18 22:43 [From Spiriva with HandiHaler] seafood Allergy RASH Uncoded 03/17/18 22:43 - Medications Medications: Current Medications Acetaminophen (Tylenol 325mg Tab) 650 mg PO Q6H PRN PRN Reason: Pain, Mild (1-3) Albuterol Sulfate (Albuterol 0.083% Inhal Ann-Marie (2.5 Mg/3 Ml) Ud) 2.5 mg INH N4HNAYS PRN PRN Reason: sob Physical Exam - Constitutional Additional comments: short of breath when talking, on nasal cannula - Eye Exam Eye Exam: Normal appearance Pupil Exam: NORMAL ACCOMODATION - ENT Exam ENT Exam: Mucous Membranes Dry - Respiratory Exam Respiratory Exam: Decreased Breath Sounds, NORMAL BREATHING PATTERN - Cardiovascular Exam Cardiovascular Exam: REGULAR RHYTHM, +S1, +S2 Additional comments: denies chest pain now, mild shortness of breath - GI/Abdominal Exam GI & Abdominal Exam: Normal Bowel Sounds, Soft - Neurological Exam Neurological exam: Alert, Oriented x3 Additional comments: very anxious - Psychiatric Exam Psychiatric exam: Anxious - Skin Skin Exam: Dry, Normal Color, Warm Results - Vital Signs Recent Vital Signs: Last Vital Signs Temp 97.6 F 03/18/18 05:33 Pulse 63 03/18/18 05:33 Resp 20 03/18/18 05:33 BP 147/73 03/18/18 05:33 Pulse Ox 94 L 03/18/18 05:33 - Labs Result Diagrams: 03/17/18 22:50 03/17/18 22:50 Labs: Laboratory Results - last 24 hr 03/17/18 03/17/18 03/17/18 22:50 22:50 22:50 WBC 7.8 D RBC 4.28 Hgb 13.3 Hct 40.7 MCV 95.1 MCH 31.1 MCHC 32.7 RDW 13.0 Plt Count 249 MPV 10.5 PT 10.5 INR 0.92 APTT 27.4 Sodium 139 Potassium 4.2 Chloride 99 Carbon Dioxide 30 Anion Gap 13 BUN 15 Creatinine 0.6 L Est GFR ( Amer) > 60 Est GFR (Non-Af Amer) > 60 Random Glucose 130 H Calcium 9.5 Total Bilirubin 0.4 AST 28 ALT 23 Alkaline Phosphatase 66 Lactate Dehydrogenase 553 Total Creatine Kinase 105 Troponin I < 0.01 Total Protein 8.0 Albumin 4.9 H Globulin 3.2 Albumin/Globulin Ratio 1.5 03/18/18 06:45 WBC RBC Hgb Hct MCV MCH MCHC RDW Plt Count MPV PT INR APTT Sodium Potassium Chloride Carbon Dioxide Anion Gap BUN Creatinine Est GFR ( Amer) Est GFR (Non-Af Amer) Random Glucose Calcium Total Bilirubin AST ALT Alkaline Phosphatase Lactate Dehydrogenase Total Creatine Kinase Troponin I < 0.01 Total Protein Albumin Globulin Albumin/Globulin Ratio Assessment & Plan - Assessment and Plan (Free Text) Assessment: A 67 year old female who came in to the ER due to intermittent chest pain radiating to left arm and left side of shoulder and jaw. She took some Nitroglycerin sublingual with some relief. History of coronary artery disease with PCI (06/12/13), hypertension,COPD, hyperlipidemia, cholecystectomy,diverticulitis, history of NSTEMI, VRE in urine, former smoker, takes oxygen at home. herniated disk, diabetes, hypothyroidism, Parkinson;s disease,asthma, COPD,emphysema,TIA, CVA,DVT with fliter.Denies chest pain now,moderate shortness of breath, Initial troponin negative, will order 2 more sets. Unstable angina, exacerbation of COPD. Review of previous cardiac work up at [facility] [place]: 08/10/16 Cardiac catheterization due to NSTEMI Non obstructive CAD Patent stent in distal Circumflex Mild to moderate disease in LAD/CX Diagonal 1 ostial 55% stenosis LVEF 65% 07/01/16- ECHO done LVEF 50-55%, Trace AR, Mild to moderate aortic stenosis Mild MR, Trace TR, RVSP 22 mmHg No vegetation or thrombus Plan: Unstable angina Will order 2 more set of troponin, initial troponin negative Echo to evaluate LV function Possible cardiac cath if troponin level positive (about 3pm) Kept NPO after breakfast Nebulizer treatment for shortness of breath Continue current treatment Continue current medications Chart reviewed Will follow up Further recommendations during hospital course Plan and treatment discussed with Dr. Mariano Thank you Dr. Aguila for the opportunity of taking care of Kellie Greer - Date & Time Date: 03/18/18 Time: 07:55
[2018-03-18] MEDS ORDERED: Metoprolol Succinate 25 mg XL Tab PO SCH ×2 (08:45→10:00)
[2018-03-18] MEDS: Levalbuterol 0.63 MG/3 ML Inhal Soln UD IH SCH ×2 (09:03→14:02)
[2018-03-18] MEDS ORDERED: Levalbuterol 0.63 MG/3 ML Inhal Soln UD ONE (09:04)
[2018-03-18] MEDS ORDERED: Pantoprazole 40 mg EC Tab PO SCH (10:00)
[2018-03-18] MEDS ORDERED: Potassium Chloride 20 mEq ER Tab PO SCH (10:00)
--- NOTE | 2018-03-18 10:23 | RAD ---
HISTORY: chest pain COMPARISON: Chest x-ray performed 03/13/18 TECHNIQUE: Chest, one view. FINDINGS: Examination limited by habitus. LUNGS: Mild pulmonary venous congestion. No focal consolidation. Please note that chest x-ray has limited sensitivity for the detection of pulmonary masses. PLEURA: No significant pleural effusion identified. No definite pneumothorax . CARDIOVASCULAR: Borderline cardiomegaly. Dense atherosclerotic calcification of the aorta. OSSEOUS STRUCTURES: Degenerative changes of the spine. VISUALIZED UPPER ABDOMEN: Unremarkable. OTHER FINDINGS: None. IMPRESSION: Borderline cardiomegaly. Mild pulmonary venous congestion.
[2018-03-18] MEDS ORDERED: Levothyroxine 25 MCG TAB ONE (10:49)
[2018-03-18] MEDS ORDERED: Levothyroxine 112 MCG TAB ONE (10:50)
--- NOTE | 2018-03-18 11:08 | CARD ---
APPROVED REPORT Date of service: 03/17/2018 EKG Measurement Heart [id number] <Conclusion> Normal sinus rhythm Right bundle branch block Left anterior fascicular block Bifascicular block No change Artifact present
[2018-03-18 11:58] VITALS: BP 120/70; RESP 19; TEMP 98.1
[2018-03-18 15:47] VITALS: PULSE 83
--- NOTE | 2018-03-18 17:07 | CARD ---
APPROVED REPORT Date of service: 03/18/2018 EXAM: Two-dimensional and M-mode echocardiogram with Doppler and color Doppler. INDICATION LV Function:SystolicDiastolic 2D DIMENSIONS Left Atrium (2D)3.9 (1.6-4.0cm)IVSd1.4 (0.7-1.1cm) LVDd4.4 (3.9-5.9cm)PWd1.3 (0.7-1.1cm) LVDs3.2 (2.5-4.0cm)FS (%) 25.7 % LVEF (%)50.9 (>50%) M-Mode DIMENSIONS Aortic Root2.90 (2.2-3.7cm)Aortic Cusp Exc.1.10 (1.5-2.0cm) Aortic Valve AoV Peak Wizqznpt778.0cm/Indy Peak GR.14mmHg Mitral Valve MV E Tkmgosfz908.0cm/sMV A Zkooaxre671.0cm/sE/A ratio0.9 TDI E/Lateral E'0.0E/Medial E'0.0 Tricuspid Valve TR Peak [id number] [id number] Peak Gr.24mmHg [id number] LEFT VENTRICLE The left ventricle is normal size. There is mild concentric left ventricular hypertrophy. The left ventricular function is normal. The left ventricular ejection fraction is within the normal range.LV Ej>Fr: 51%. RIGHT VENTRICLE The right ventricle is normal size. The right ventricular systolic function is normal. ATRIA The left atrium size is normal. The right atrium size is normal. AORTIC VALVE Aortic Valve Calcified and shows Mild Aortic Stenosis. MITRAL VALVE Mitral Leaflets are Thickened But Opening is Adequate. Mitral Annuls Calcified. Mitral regurgitation is mild. TRICUSPID VALVE The tricuspid valve is normal in structure. There is mild tricuspid regurgitation. PERICARDIAL EFFUSION Small Pericardial Effusion Present. <Conclusion> The left ventricle is normal size. There is mild concentric left ventricular hypertrophy. The left ventricular function is normal. The left ventricular ejection fraction is within the Low normal range.LV Ej>Fr: 51%. The right ventricle is normal size. The right ventricular systolic function is normal. The left atrium size is normal. The right atrium size is normal. Aortic Valve Calcified and shows Mild Aortic Stenosis. Mitral Leaflets are Thickened But Opening is Adequate. Mild Mitral Regurge. Mitral Annuls Calcified. The tricuspid valve is normal in structure. There is mild tricuspid regurgitation. RVSP 34mm Hg. Small Pericardial Effusion Present.
--- NOTE | 2018-03-18 19:26 | CON ---
DATE: 03/18/2018 The patient is seen. Her chart reviewed with Citlali Skelton our nurse practitioner. BRIEF SUMMARY: The patient has history of coronary artery disease, status post PTCA of the circumflex 05/30/2013. Eventually, the patient was admitted with hernia surgery and non-ST segment myocardial infarction. Later on the patient had repeat cardiac catheterization done that is 08/06/2016 that shows nonoperative coronary artery disease, patent stent. The patient admitted this time what appeared to be more exacerbation of COPD and mild tenderness in the epigastrium, but complained of tightness in the chest. In view of risk for coronary artery disease, we suggest follow up serial CPK troponin. First troponin on admission was negative. We will add two more troponin, one in the morning 7 o' clock added in the blood drawn, second at 1 p.m. If the troponin becomes abnormal or increasing, then we will do the cardiac catheterization at 3 p.m., otherwise will treat medically. Explained this to the patient, explained this to the nursing staff taking care of the patient. Also the patient was tentatively placed on cath schedule at 3 p.m. provided if the troponin remains abnormal. We will follow with you. Thank you Dr. Aguila for providing the opportunity in taking care of patient Kellie Greer. We will follow as mentioned serial CPK troponin. For now, we will continue baby aspirin, continue atorvastatin, continue levothyroxine. If the troponin turns out to be positive, will load with Plavix. Otherwise will treat medically. Princess Mariano MD
[2018-03-18] MEDS ORDERED: POLYETHYLENE GLYCOL 3350 17 GM/Dose PACKET PO SCH (22:00)
--- NOTE | 2018-03-19 00:35 | HP ---
HISTORY OF PRESENT ILLNESS: The patient is a 67-year-old, well known to me from multiple previous admissions. The patient stated she woke up this morning with chest pain radiating to the left arm and going towards the mandible. She stated that the pain was similar to before when she had OR, so her boyfriend called ambulance and she was rushed to the emergency room for further evaluation. The patient denies any nausea or vomiting, no fever, no chills, no cough, no congestion. PAST MEDICAL HISTORY/PAST SURGICAL HISTORY: 1. Hypertension. 2. Coronary artery disease. 3. Status post angioplasty last year. 4. History of PCI in 2013. 5. History of ventral hernia repair last year. 6. History of mesh infection and had the mesh removed and repair done again. 7. COPD, on home oxygen. 8. Degenerative disk disease. 9. Hyperlipidemia. 10. History of diverticulosis. 11. Cholecystectomy. 12. Multiple ventral hernia repairs. 13. Gastroesophageal reflux disease. SOCIAL HISTORY: She lives with her boyfriend. She used to be very heavy smoker, but quit since she was diagnosed with a known COPD. MEDICATIONS AT HOME: 1. She is on vitamin D. 2. She is on lisinopril 5 mg daily. 3. Levothyroxine 137 mcg daily. 4. Voltaren gel for arthritic joints. 5. Zyrtec 10 mg daily. 6. Symbicort. 7. Aspirin 81 daily. 8. Xanax 0.5 twice a day. 9. Prednisone 5 mg twice a day. 10. Simvastatin 20 mg daily. 11. MiraLax as needed. 12. Protonix 40 daily. 13. Metoprolol 25 daily. ALLERGIES: SHE IS ALLERGIC TO AMOXICILLIN, CIPRO, AUGMENTIN, IODINE, SULFA, ZYVOX, AND SPIRIVA. PHYSICAL EXAMINATION: GENERAL: The patient is awake, alert, and oriented. When I saw the patient, she is completely chest pain free. Denies any nausea or vomiting. VITAL SIGNS: She is afebrile, pulse 69, respirations 19, and blood pressure 120/70. LUNGS: Bilateral diffusely decreased breath sounds. HEART: S1 and S2 audible. ABDOMEN: Soft and nontender. No rebound. No guarding. NEUROLOGICAL: She is awake, alert, oriented, communicative, and ambulatory. LABORATORY DATA: WBC 7.8, hemoglobin 13, hematocrit 40, and platelets 249. PT 10.5 and INR 0.92. Chemistry: Sodium 139, potassium 4.2, chloride 99, CO2 of 30, BUN 15, creatinine 0.6, and blood sugar 130. LFTs are within normal limits. Three sets of cardiac enzymes are negative. ASSESSMENT: 1. Chest pain, seems to be noncardiac. Three sets of troponin negative. 2. Chronic obstructive pulmonary disease. 3. Hypertension. 4. Hyperlipidemia. 5. Gastroesophageal reflux disease. PLAN: Dr. Mariano evaluated the patient. Since three troponins were negative, the patient is asymptomatic, so she was discharged home and we will follow her up in the office. Lori Aguila MD
[2018-03-19] MEDS ORDERED: Levothyroxine 125 MCG TAB PO SCH ×2 (06:00)
== END 2018-03-18 16:23 | disposition home or self-care (01) ==
LOC: ED 22:36 → ERH 03-18 00:30 → 2RSO 03-18 01:55
PROVIDERS: ADMIT Internal Medicine; ATTEND Internal Medicine
DX: J44.1 Chronic obstructive pulmonary disease with (acute) exacerbation (principal); I25.10 Atherosclerotic heart disease of native coronary artery without angina pectoris; I25.2 Old myocardial infarction; I10 Essential (primary) hypertension; E78.5 Hyperlipidemia, unspecified; G20 Parkinson's disease; F02.80 Dementia in other diseases classified elsewhere, unspecified severity, without behavioral disturbance, psychotic disturbance, mood disturbance, and anxiety; E03.9 Hypothyroidism, unspecified; K21.9 Gastro-esophageal reflux disease without esophagitis; Z99.81 Dependence on supplemental oxygen; Z95.5 Presence of coronary angioplasty implant and graft; Z87.891 Personal history of nicotine dependence; Z86.718 Personal history of other venous thrombosis and embolism; Z86.73 Personal history of transient ischemic attack (TIA), and cerebral infarction without residual deficits
CPT/HCPCS: 36415; 71045; 80053; 82550; 83615; 84484; 85027; 85610; 85730; 93005; 93306; 94640; 94760; 96374; 99285; G0378; J2270

== ENCOUNTER 2018-05-01 19:35 | Emergency (ER) | payer OTHER, MEDICARE ==
[2018-05-01 19:41] VITALS: BMI 25.8
[2018-05-01 19:48] VITALS: TEMP 98.2
[2018-05-01] MEDS ORDERED: Morphine 2 mg/ml ISec IVP STA ×2 (20:23→23:48)
[2018-05-01 20:25] LABS: BASO # 0.01 K/mm3 (0.0-2.0); BASO % 0.1 % (0.0-3.0); EOS % 0.1 % (1.5-5.0); GRAN # 8.07 (1.4-6.5); GRAN % 81.5 % (50.0-68.0); HEMOGLOBIN 13.1 g/dL (12.0-16.0); LYMPH # 1.2 (1.2-3.4); LYMPH % 12.2 % (22.0-35.0); MEAN CELL VOLUME 95.5 fl (80.0-105.0); MEAN CORPUSCULAR HGB CONC 32.4 g/dl (31.0-37.0); MEAN PLATELET VOLUME 9.9 fl (7.0-11.0); MONO # 0.6 (0.1-0.6); MONO % 6.1 % (1.0-6.0); RBC 4.23 10^6/uL (3.5-6.1); RED CELL DISTRIBUTION WIDTH 13.5 % (11.5-14.5); WHITE BLOOD COUNT 9.9 10^3/uL (4.5-11.0)
[2018-05-01] MEDS ORDERED: Sodium Chloride 0.9% 1,000 ML IV SCH (20:30)
[2018-05-01 20:39] LABS: INR 0.92; PARTIAL THROMBOPLASTIN TIME 24.8 Seconds (25.1-36.5); PROTHROMBIN TIME 10.5 SECONDS (9.4-12.5)
[2018-05-01 20:41] LABS: ALB/GLOB RATIO 1.4 (1.1-1.8); ALBUMIN 4.3 g/dL (3.0-4.8); ALT/SGPT 26 U/L (7-56); AMYLASE 95 U/L (35-125); AST/SGOT 29 U/L (14-36); BLOOD UREA NITROGEN 19 mg/dL (7-21); CALCIUM 9.3 mg/dL (8.4-10.5); GFR NON-AFRICAN AMERICAN > 60; LIPASE 118 U/L (23-300)
[2018-05-01 20:51] LABS: TROPONIN I < 0.01 ng/mL
--- NOTE | 2018-05-01 21:52 | ED PDOC ---
Arrival/HPI - General Chief Complaint: Abdominal Pain Time Seen by Provider: 05/01/18 19:42 Historian: Patient - History of Present Illness Narrative History of Present Illness (Text): 05/01/18 20:05 Kellie Greer is a 67 year old female, whose past medical history includes hypertension, CAD, ventral hernia s/p multiple ventral hernia repairs, COPD, degenerative disc disease, hyperlipidemia, diverticulosis, cholecystectomy, and GERD, who presents to the Emergency department complaining of abdominal pain. Patient states she has been experiencing abdominal pain and black stools but notes stools are brown now. Patient denies any fever, chills, chest pain, nausea, vomiting, urinary symptoms, back pain, neck pain, headache, dizziness, or any other complaints. Symptom Onset: Gradual Symptom Course: Unchanged Activities at Onset: Light Context: Home Past Medical History - Provider Review Nursing Documentation Reviewed: Yes - Infectious Disease Hx of Infectious Diseases: None - Tetanus Immunization Tetanus Immunization: Unknown - Cardiac Hx Cardiac Disorders: Yes ([place] 06/09/13, DVT s/p filter,ANGIOPLASTY) Hx Angina: Yes Hx Circulatory Problems: Yes Hx Hypertension: Yes Hx Peripheral Vascular Disease: Yes - Pulmonary Hx Respiratory Disorders: Yes Hx Asthma: Yes Hx Bronchitis: Yes Hx Chronic Obstructive Pulmonary Disease (COPD): Yes (2L O2 @ Home) Hx Emphysema: Yes Hx Pneumonia: Yes Hx Tuberculosis: Yes - Neurological Hx Neurological Disorder: Yes HX Cerebrovascular Accident: Yes Hx Dementia: Yes Hx Dizziness: Yes Hx Parkinson's Disease: Yes Hx Seizures: Yes Hx Transient Ischemic Attacks (TIA): Yes - HEENT Hx Cataracts: Yes Hx Glaucoma: Yes - Renal Hx Renal Disorder: No Hx Dialysis: No - Endocrine/Metabolic Hx Diabetes Mellitus Type 2: Yes Hx Hypothyroidism: Yes Hx Systemic Lupus Erythematosus: Yes - Hematological/Oncological Hx Blood Disorders: Yes Hx Cancer: Yes - Integumentary Hx Dermatological Disorder: Yes Other/Comment: bilateral arms eccymotic areas - Musculoskeletal/Rheumatological Hx Arthritis: Yes Hx Back Pain: Yes Hx Falls: Yes Hx Fractures: Yes Hx Herniated Disk: Yes Hx Osteoarthritis: Yes Hx Unsteady Gait: Yes - Gastrointestinal Hx Gastrointestinal Disorders: Yes (hiatal hernia, umbilical hernia) Hx Diverticulitis: Yes (and diverticulosis) Hx Gall Bladder Disease: Yes (CHOLECYSTECTOMY) Hx Gastroesophageal Reflux: Yes Hx Liver Failure: No Hx Pancreatitis: Yes HX Swallowing Problems: No - Genitourinary/Gynecological Hx Genitourinary Disorders: Yes Hx Incontinence: Yes 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 - Psychiatric Hx Psychophysiologic Disorder: Yes Hx Anxiety: Yes Hx Depression: Yes Hx Substance Use: No - Surgical History Hx Cardiac Catheterization: Yes Hx Cholecystectomy: Yes Hx Coronary Stent: Yes (06/09/13) Other/Comment: Hernia Surgery-15 June 2016 - Anesthesia Hx Anesthesia: Yes Hx Anesthesia Reactions: No Hx Malignant Hyperthermia: No - Suicidal Assessment Feels Threatened In Home Enviroment: No Family/Social History - Physician Review Nursing Documentation Reviewed: Yes Family/Social History: Unknown Family HX Smoking Status: Former Smoker Hx Alcohol Use: No Hx Substance Use: No Hx Substance Use Treatment: No Allergies/Home Meds Allergies/Adverse Reactions: Allergies amoxicillin [From Augmentin] Allergy (Verified 05/01/18 19:42) RASH ciprofloxacin [From Cipro] Allergy (Verified 05/01/18 19:42) RASH ciprofloxacin HCl [From Cipro] Allergy (Verified 05/01/18 19:42) RASH clavulanic acid [From Augmentin] Allergy (Verified 05/01/18 19:42) RASH iodine Allergy (Verified 05/01/18 19:42) RASH linezolid [From Zyvox] Allergy (Verified 05/01/18 19:42) REDNESS Sulfa (Sulfonamide Antibiotics) Allergy (Verified 05/01/18 19:42) RASH tiotropium bromide [From Spiriva with HandiHaler] Allergy (Verified 05/01/18 19:42) RASH seafood Allergy (Uncoded 05/01/18 19:42) RASH Home Medications: Home Meds Medication Instructions Recorded Confirmed Alprazolam [Xanax] 0.5 mg PO BID 11/11/16 05/01/18 Aspirin [Adult Low Dose Aspirin EC] 81 mg PO DAILY 11/11/16 05/01/18 Budesonide/Formoterol Fumarate 2 puff IH DAILY 11/11/16 05/01/18 [Symbicort 80-4.5 Mcg Inhaler] Cetirizine HCl [Zyrtec] 10 mg PO DAILY 11/11/16 05/01/18 Diclofenac Sodium [Voltaren] 1 appl TP TID 11/11/16 05/01/18 Ergocalciferol (Vitamin D2) 50,000 unit PO QWK 11/11/16 05/01/18 [Vitamin D2] Levothyroxine [Synthroid] 137 mcg PO DAILY 11/11/16 05/01/18 Lisinopril [Zestril] 5 mg PO DAILY 11/11/16 05/01/18 Metoprolol Succinate 25 mg PO DAILY 11/11/16 05/01/18 Pantoprazole [Protonix EC Tab] 40 mg PO DAILY 11/11/16 05/01/18 Potassium Chloride [K-Dur 20 mEq 20 meq PO DAILY 11/11/16 05/01/18 ER Tab] Simvastatin [Zocor] 20 mg PO DAILY 11/11/16 05/01/18 Polyethylene Glycol 3350 [Miralax] 1 packet PO HS 03/13/18 05/01/18 predniSONE [predniSONE Tab] 5 mg PO BID 03/13/18 05/01/18 Review of Systems - Physician Review All systems were reviewed & negative as marked: Yes - Review of Systems Constitutional: Normal. absent: Fevers Eyes: Normal ENT: Normal Respiratory: Normal. absent: SOB, Cough Cardiovascular: Normal. absent: Chest Pain Gastrointestinal: Abdominal Pain, Hematochezia Genitourinary Female: Normal. absent: Dysuria, Frequency, Hematuria, Urine Output Changes Musculoskeletal: Normal. absent: Back Pain, Neck Pain Skin: Normal. absent: Rash Neurological: Normal. absent: Headache, Dizziness Endocrine: Normal Hemo/Lymphatic: Normal Psychiatric: Normal Physical Exam Vital Signs Reviewed: Yes Vital Signs Temp Pulse Resp BP Pulse Ox 05/01/18 19:46 98.2 F 96 H 18 124/61 97 Temperature: Afebrile Blood Pressure: Normal Pulse: Regular Respiratory Rate: Normal Appearance: Positive for: Well-Appearing, Non-Toxic, Comfortable Pain Distress: None Mental Status: Positive for: Alert and Oriented X 3 - Systems Exam Head: Present: Atraumatic, Normocephalic Pupils: Present: PERRL Extroacular Muscles: Present: EOMI Conjunctiva: Present: Normal Mouth: Present: Moist Mucous Membranes Neck: Present: Normal Range of Motion Respiratory/Chest: Present: Clear to Auscultation, Good Air Exchange. No: Respiratory Distress, Accessory Muscle Use Cardiovascular: Present: Regular Rate and Rhythm, Normal S1, S2. No: Murmurs Abdomen: No: Tenderness, Distention, Peritoneal Signs Back: Present: Normal Inspection Upper Extremity: Present: Normal Inspection. No: Cyanosis, Edema Lower Extremity: Present: Normal Inspection. No: Edema Neurological: Present: GCS=15, CN II-XII Intact, Speech Normal Skin: Present: Warm, Dry, Normal Color. No: Rashes Psychiatric: Present: Alert, Oriented x 3, Normal Insight, Normal Concentration Medical Decision Making ED Course and Treatment: 05/01/18 20:05 Impression: 67 year old female complaining of abdominal pain and black stools. Plan: -- CT Abdomen and Pelvis -- EKG -- Chest X-ray -- Labs, cardiac enzymes, amylase, lipase, blood type and screen, blood culture -- Urinalysis -- IV fluids -- Zofran -- Morphine -- Reassess and disposition Prior Visits: Notes and results from previous visits were reviewed. Progress Notes: Reviewed EKG, NSR at 89 bpm. RBBB. LAFB. LVH. Non-specific ST/T wave changes. 05/01/18 22:24 CT Abdomen and Pelvis reviewed, shows: Chest: The visualized lung bases are clear. Abdomen: The kidneys are normal in size bilaterally. There is no evidence of hydronephrosis or nephrolithiasis. The liver, spleen, pancreas, and adrenal glands are unremarkable. The aorta demonstrates normal caliber and contour, with moderate diffuse atherosclerotic calcifications. There is no abdominal lymphadenopathy or ascites. IVC filter is in place. Pelvis: The bowel is unremarkable, with no obstructive or inflammatory changes. Mild diffuse diverticulosis is noted without evidence of diverticulitis. The appendix is normal. The urinary bladder is within normal limits. There is no pelvic lymphadenopathy or ascites. The other pelvic structures appear unremarkable. Bones: There are no suspicious osseous abnormalities seen. Severe multilevel degenerative disc disease is noted throughout the lower thoracic and lumbar spine. Impression: 1. No evidence of hydronephrosis or nephrolithiasis.2. No obstructive or inflammatory bowel changes. Mild diffuse diverticulosis without evidence of diverticulitis. 3. Moderately severe diffuse spondylosis of the visualized portions of the thoracic and lumbar spine. Electronically signed on May 01, 2018 10:16:50 PM EST by: Braden Carrera M.D., KEYANA Certified By [facility] Fellowship Trained MRI and CT Specialist 05/01/18 23:[address] Aguila, who is aware and agrees with plan. Accepts pt in to her service. Pt admitted to Telemetry for gastrointestinal hemorrhage and COPD. - Lab Interpretations Lab Results: 05/01/18 20:12 05/01/18 20:12 Lab Results 05/01/18 20:30: Blood Type Pending, Antibody Screen Pending, BBK History Checked Patient has bt 05/01/18 20:12: Sodium 141, Potassium 4.6, Chloride 102, Carbon Dioxide 32, Anion Gap 12, BUN 19, Creatinine 0.7, Est GFR ( Amer) > 60, Est GFR (Non- Af Amer) > 60, Random Glucose 123 H, Calcium 9.3, Total Bilirubin 0.3, AST 29, ALT 26, Alkaline Phosphatase 60, Lactate Dehydrogenase 594, Total Creatine Kinase 66, Troponin I < 0.01, Total Protein 7.4, Albumin 4.3, Globulin 3.1, Albumin/Globulin Ratio 1.4, Amylase 95, Lipase 118 05/01/18 20:12: PT 10.5, INR 0.92, APTT 24.8 L 05/01/18 20:12: WBC 9.9, RBC 4.23, Hgb 13.1, Hct 40.4, MCV 95.5, MCH 31.0, MCHC 32.4, RDW 13.5, Plt Count 261, MPV 9.9, Gran % 81.5 H, Lymph % (Auto) 12.2 L, Dade % (Auto) 6.1 H, Eos % (Auto) 0.1 L, Baso % (Auto) 0.1, Gran # 8.07 H, Lymph # (Auto) 1.2, Dade # (Auto) 0.6, Eos # (Auto) 0.0, Baso # (Auto) 0.01 I have reviewed the lab results: Yes - RAD Interpretation Radiology Orders: 05/01/18 20:06 ABD & PELVIS W/O PO OR IV CONT [CT] Stat Slackman: Radiologist - EKG Interpretation Interpreted by ED Physician: Yes Type: 12 lead EKG - Medication Orders Current Medication Orders: Sodium Chloride (Sodium Chloride 0.9%) 1,000 mls @ 80 mls/hr IV .[id number] [id number] Last Admin: 05/01/18 20:39 Dose: 80 mls/hr eMAR Start Stop Document 05/01/18 20:39 AD (Rec: 05/01/18 20:39 AD [id number]) Intravenous Solution Start Date 05/01/18 Start Time 20:39 Discontinued Medications Morphine Sulfate (Morphine) 2 mg IVP STAT STA Stop: 05/01/18 20:24 Last Admin: 05/01/18 20:39 Dose: 2 mg MAR Pain Assessment Document 05/01/18 20:39 AD (Rec: 05/01/18 20:39 AD [id number]) Pain Reassessment Is this a pain reassessment? No Presence of Pain Presence of Pain Yes Description Intensity of Pain at present 8 Pain Behavior Facial Grimacing IVP Administration Document 05/01/18 20:39 AD (Rec: 05/01/18 20:39 AD [id number]) Charges for Administration # of IVP Administrations 1 Ondansetron HCl (Zofran Inj) 4 mg IVP STAT STA Stop: 05/01/18 20:24 Last Admin: 05/01/18 20:39 Dose: 4 mg IVP Administration Document 05/01/18 20:39 AD (Rec: 05/01/18 20:39 AD [id number]) Charges for Administration # of IVP Administrations 1 - Scribe Statement The provider has reviewed the documentation as recorded by the Danny Cherry Provider Scribe Attestation: All medical record entries made by the Scribe were at my direction and personally dictated by me. I have reviewed the chart and agree that the record accurately reflects my personal performance of the history, physical exam, medical decision making, and the department course for this patient. I have also personally directed, reviewed, and agree with the discharge instructions and disposition. Disposition/Present on Arrival - Present on Arrival Any Indicators Present on Arrival: No History of DVT/PE: No History of Uncontrolled Diabetes: No Urinary Catheter: No History of Decub. Ulcer: No History Surgical Site Infection Following: None - Disposition Have Diagnosis and Disposition been Completed?: Yes Diagnosis: Abdominal pain, GI bleed Disposition: HOSPITALIZED Disposition Time: 23:08 Condition: FAIR Forms: Inpatient D/C Instruction
[2018-05-01] MEDS ORDERED: Sodium Chloride 0.9% 1,000 ML IV STA (23:53)
[2018-05-01] MEDS ORDERED: Albuterol-Ipratrop 3 mg / 0.5 (3 ml) UD IH PRN (23:53)
[2018-05-02 05:15] LABS: URINE BILIRUBIN NEGATIVE (NEGATIVE); URINE BLOOD NEGATIVE (NEGATIVE); URINE GLUCOSE (UA) NEGATIVE (NEGATIVE); URINE LEUKOCYTE ESTERASE NEGATIVE Leu/uL (NEGATIVE); URINE PROTEIN NEGATIVE mg/dL (<30 mg/dL); URINE UROBILINOGEN 0.2 E.U./dL (<1 E.U./dL)
[2018-05-02 05:20] LABS: URINE APPEARANCE CLEAR (CLEAR); URINE COLOR YELLOW (YELLOW)
--- NOTE | 2018-05-02 07:55 | CT ---
Date of service: 05/01/2018 PROCEDURE: CT Abdomen and Pelvis without intravenous contrast HISTORY: abd pain COMPARISON: None. TECHNIQUE: Technique. Contrast dose: Radiation dose: Total exam DLP = 932.0 mGy-cm. This CT exam was performed using one or more of the following dose reduction techniques: Automated exposure control, adjustment of the mA and/or kV according to patient size, and/or use of iterative reconstruction technique. FINDINGS: LOWER THORAX: Unremarkable. LIVER: Unremarkable. No gross lesion or ductal dilatation. GALLBLADDER AND BILE DUCTS: Cholecystectomy. PANCREAS: Unremarkable. No gross lesion or ductal dilatation. SPLEEN: Unremarkable. ADRENALS: Unremarkable. No mass. KIDNEYS AND URETERS: Unremarkable. No hydronephrosis. No solid mass. VASCULATURE: Unremarkable. No aortic aneurysm. Aortic calcifications. IVC filter in place. BOWEL: Unremarkable. No obstruction. No gross mural thickening. APPENDIX: Unremarkable. Normal appendix. PERITONEUM: Unremarkable. No free fluid. No free air. LYMPH NODES: Unremarkable. No enlarged lymph nodes. BLADDER: Unremarkable. REPRODUCTIVE: Unremarkable. BONES: No acute fracture. OTHER FINDINGS: Wide-mouth abdominal wall hernia containing non /strangulated bowel loops. IMPRESSION: Wide-mouth abdominal wall hernia containing non /strangulated bowel loops.
--- NOTE | 2018-05-02 09:14 | CARD ---
APPROVED REPORT Date of service: 05/01/2018 EKG Measurement Heart [id number] <Conclusion> Normal sinus rhythm Right bundle branch block Left anterior fascicular block Bifascicular block Voltage criteria for left ventricular hypertrophy Abnormal ECG
[2018-05-02] MEDS: Albuterol 0.5% Inhal Sol (2.5 mg/0.5 ml) UD IH SCH ×2 (09:18→14:12)
[2018-05-02] MEDS ORDERED: Albuterol 0.083% Inhal Sol (2.5 mg/3 mL) UD ONE ×2 (09:20→14:15)
[2018-05-02 11:03] VITALS: RESP 18
[2018-05-02 12:06] VITALS: O2SAT 95
[2018-05-02 13:58] VITALS: BP 123/74; PULSE 73
--- NOTE | 2018-05-02 14:38 | CP.PCM.CON ---
History of Present Illness - History of Present Illness History of Present Illness: General Surgery Consult Note for Dr. Reeder HPI: 67F with PMHx of CAD, HTN, COPD, diverticulosis, cholecystectomy, and ventral hernias s/p multiple repairs presented to the ED on 05/01 with acute abdominal pain of unspecified location and quality. In addition to the abdominal pain, she had an episode of diarrhea last night. She denies nausea and vomiting and continues to deny it the next day. Denies fever, chills, night sweats. Patient's last BM was last night in the ER. Her last meal was 2 hours ago, lunch in the ER. Patient states she feels fine, the abdominal pain has resolved, and she wants to go home. She states that Dr. Aguila seen her in the ER and said she can go home. All symptoms occurred after she ate a cake, and she thinks she just had food poisoning that resolved. Of note, patient is well-known to the general surgery team. She was seen by Dr. Reeder on for a ventral hernia repair on 05/21/16. Patient also seen and treated for SBO. ED course: tylenol, albuterol, IVF ROS: as per HPI PMHx: as stated above PSHx: as stated above FHx: denies SocHx: Used to be a heavy smoker but quit after dx with COPD, denies EtOH and illicit drugs. Meds: vit D, lisinopril 5 mg, levo 137 mcg, voltaren gel, zyrtec 10 mg, symbicort, prednisone 5 mg BID, aspirin 81 mg, xanax 0.5 mg BID, simvastatin 20 mg, protonix 40 mg, metoprolol 40 mg Allergies (reaction to all is rash): amoxicillin, cipro, clavulanic acid, iodine, linezolid, sulfa, tiotropium Review of Systems - Constitutional Constitutional: As Per HPI Past Patient History - Infectious Disease Hx of Infectious Diseases: None - Tetanus Immunizations Tetanus Immunization: Unknown - Past Social History Smoking Status: Former Smoker - CARDIAC Hx Cardiac Disorders: Yes Hx Angina: Yes Hx Circulatory Problems: Yes Hx Hypertension: Yes - PULMONARY Hx Respiratory Disorders: Yes Hx Chronic Obstructive Pulmonary Disease (COPD): Yes - NEUROLOGICAL Hx Neurological Disorder: Yes HX Cerebrovascular Accident: Yes Hx Dementia: Yes Hx Parkinson's Disease: Yes Hx Transient Ischemic Attacks (TIA): Yes - HEENT Hx Cataracts: Yes Hx Glaucoma: Yes - RENAL Hx Chronic Kidney Disease: No - ENDOCRINE/METABOLIC Hx Endocrine Disorders: Yes Hx Hypothyroidism: Yes Hx Systemic Lupus Erythematosus: Yes Other/Comment: Pre diabetes - HEMATOLOGICAL/ONCOLOGICAL Hx Blood Disorders: No - INTEGUMENTARY Hx Dermatological Problems: Yes Other/Comment: bilateral arms eccymotic areas - MUSCULOSKELETAL/RHEUMATOLOGICAL Hx Musculoskeletal Disorders: Yes Hx Arthritis: Yes Hx Falls: Yes Hx Fractures: Yes Hx Herniated Disk: Yes Hx Unsteady Gait: Yes - GASTROINTESTINAL Hx Gastrointestinal Disorders: Yes Hx Diverticulitis: Yes Hx Gastroesophageal Reflux: Yes - GENITOURINARY/GYNECOLOGICAL Hx Genitourinary Disorders: No - PSYCHIATRIC Hx Anxiety: Yes Hx Depression: Yes Hx Substance Use: No - SURGICAL HISTORY Hx Surgeries: Yes Hx Cardiac Catheterization: Yes Hx Cholecystectomy: Yes Hx Coronary Stent: Yes - ANESTHESIA Hx Anesthesia: Yes Hx Anesthesia Reactions: No Hx Malignant Hyperthermia: No Meds Home Medications: Home Medication List Medication Instructions Recorded Confirmed Type Acetaminophen [Tylenol 325mg tab] 650 mg PO Q4H PRN tab 05/02/18 Rx Ondansetron [Zofran Inj] 4 mg IVP Q6H PRN vial 05/02/18 Rx Allergies/Adverse Reactions: Allergies Allergy/AdvReac Type Severity Reaction Status Date / Time amoxicillin [From Augmentin] Allergy RASH Verified 05/01/18 19:42 ciprofloxacin [From Cipro] Allergy RASH Verified 05/01/18 19:42 ciprofloxacin HCl Allergy RASH Verified 05/01/18 19:42 [From Cipro] clavulanic acid Allergy RASH Verified 05/01/18 19:42 [From Augmentin] iodine Allergy RASH Verified 05/01/18 19:42 linezolid [From Zyvox] Allergy REDNESS Verified 05/01/18 19:42 Sulfa (Sulfonamide Allergy RASH Verified 05/01/18 19:42 Antibiotics) tiotropium bromide Allergy RASH Verified 05/01/18 19:42 [From Spiriva with HandiHaler] seafood Allergy RASH Uncoded 05/01/18 19:42 - Medications Medications: Current Medications Acetaminophen (Tylenol 325mg Tab) 650 mg PO Q4H PRN PRN Reason: Pain, Mild (1-3) Last Admin: 05/02/18 11:41 Dose: 650 mg Albuterol Sulfate (Albuterol 0.5% Inhal Ann-Marie (2.5 Mg/0.5 Ml) Ud) 2.5 mg IH Q6HR [facility]DR[facility] Last Admin: 05/02/18 14:12 Dose: 2.5 mg Sodium Chloride (Sodium Chloride 0.9%) 1,000 mls @ 80 mls/hr IV .[id number] [facility] Last Admin: 05/01/18 20:39 Dose: 80 mls/hr Ondansetron HCl (Zofran Inj) 4 mg IVP Q6H PRN PRN Reason: Nausea/Vomiting Physical Exam - Constitutional Appears: Well - Head Exam Head Exam: ATRAUMATIC, NORMAL INSPECTION, NORMOCEPHALIC - Eye Exam Eye Exam: EOMI, Normal appearance - Neck Exam Neck exam: Positive for: Normal Inspection - Respiratory Exam Respiratory Exam: Decreased Breath Sounds. absent: Rales, Rhonchi, Wheezes, Stridor, NORMAL BREATHING PATTERN Additional comments: Patient taking breaths mid-sentence, with nasal cannula on 2 mL delaney - Cardiovascular Exam Cardiovascular Exam: REGULAR RHYTHM - GI/Abdominal Exam GI & Abdominal Exam: Normal Bowel Sounds, Soft. absent: Distended, Firm, Guarding, Rebound, Rigid, Tenderness Additional comments: midline abdominal scar. No skin color changes. - Extremities Exam Extremities exam: Positive for: normal capillary refill, normal inspection. Negative for: tenderness - Neurological Exam Neurological exam: Alert, Oriented x3 - Psychiatric Exam Psychiatric exam: Normal Affect, Normal Mood - Skin Skin Exam: Dry, Intact, Normal Color, Warm Results - Vital Signs Recent Vital Signs: Last Vital Signs Temp 98.2 F 05/01/18 19:46 Pulse 73 05/02/18 14:18 Resp 18 05/02/18 13:58 BP 123/74 05/02/18 13:58 Pulse Ox 95 05/02/18 13:58 - Labs Result Diagrams: 05/01/18 20:12 05/01/18 20:12 Labs: Laboratory Results - last 24 hr 05/01/18 05/01/18 05/01/18 20:12 20:12 20:12 WBC 9.9 RBC 4.23 Hgb 13.1 Hct 40.4 MCV 95.5 MCH 31.0 MCHC 32.4 RDW 13.5 Plt Count 261 MPV 9.9 Gran % 81.5 H Lymph % (Auto) 12.2 L Ross % (Auto) 6.1 H Eos % (Auto) 0.1 L Baso % (Auto) 0.1 Gran # 8.07 H Lymph # (Auto) 1.2 Ross # (Auto) 0.6 Eos # (Auto) 0.0 Baso # (Auto) 0.01 PT 10.5 INR 0.92 APTT 24.8 L Sodium 141 Potassium 4.6 Chloride 102 Carbon Dioxide 32 Anion Gap 12 BUN 19 Creatinine 0.7 Est GFR ( Amer) > 60 Est GFR (Non-Af Amer) > 60 Random Glucose 123 H Calcium 9.3 Total Bilirubin 0.3 AST 29 ALT 26 Alkaline Phosphatase 60 Lactate Dehydrogenase 594 Total Creatine Kinase 66 Troponin I < 0.01 Total Protein 7.4 Albumin 4.3 Globulin 3.1 Albumin/Globulin Ratio 1.4 Amylase 95 Lipase 118 Urine Color Urine Appearance Urine pH Ur Specific Bates Urine Protein Urine Glucose (UA) Urine Ketones Urine Blood Urine Nitrate Urine Bilirubin Urine Urobilinogen Ur Leukocyte Esterase Blood Type Antibody Screen BBK History Checked 05/01/18 05/02/18 20:30 04:38 WBC RBC Hgb Hct MCV MCH MCHC RDW Plt Count MPV Gran % Lymph % (Auto) Ross % (Auto) Eos % (Auto) Baso % (Auto) Gran # Lymph # (Auto) Ross # (Auto) Eos # (Auto) Baso # (Auto) PT INR APTT Sodium Potassium Chloride Carbon Dioxide Anion Gap BUN Creatinine Est GFR ( Amer) Est GFR (Non-Af Amer) Random Glucose Calcium Total Bilirubin AST ALT Alkaline Phosphatase Lactate Dehydrogenase Total Creatine Kinase Troponin I Total Protein Albumin Globulin Albumin/Globulin Ratio Amylase Lipase Urine Color Yellow Urine Appearance Clear Urine pH 6.0 Ur Specific Bates 1.020 Urine Protein Negative Urine Glucose (UA) Negative Urine Ketones Negative Urine Blood Negative Urine Nitrate Negative Urine Bilirubin Negative Urine Urobilinogen 0.2 Ur Leukocyte Esterase Negative Blood Type A POSITIVE Antibody Screen Negative BBK History Checked Patient has bt Assessment & Plan - Assessment and Plan (Free Text) Assessment: 67 y/o female with a significant history of ventral hernia repairs presents to ER with abdominal pain. -CTAP is negative for incarcerated bowel. "Wide mouth abdominal wall hernia containing non-strangulated bowel loops." -Patient continues to be afebrile and without leukocytosis. CBC, CMP, LFTs, CK, trops, lipase all within normal limits. Abdominal pain and diarrhea has resolved. Non-tender and no guarding on abdominal exam. -Patient to return to ED if nausea, vomiting, abdominal pain, fever -Patient cleared for discharge / Dr. Aguila cleared for discharge Ava Cunningham PGY1
--- NOTE | 2018-05-02 19:26 | CON ---
DATE: 05/02/2018 HISTORY OF PRESENT ILLNESS: The patient is a 67-year-old known to me from multiple previous admission. The patient states yesterday she had some libertarian at home, she had a very heavy milk cake, she took a piece out of it, says it was delicious and after sometime she started to have abdominal discomfort, bloating, and she has nausea. She had a couple of bouts of diarrhea. She had dark brown stool at nighttime, so she came to the emergency room because of abdominal discomfort for further evaluation. There is no documented history of fever, chills and no bright red rectal bleeding. Last BM she had was last night. By the time I saw the patient, the patient is asymptomatic, wants to go home. PAST MEDICAL HISTORY: Significant for: 1. Coronary artery disease status post angioplasty. 2. Hypertension. 3. COPD. 4. History of diverticulosis. 5. Ventral hernia repair. 6. Hiatal hernia. 7. Status post cholecystectomy. SOCIAL HISTORY: She lives with her boyfriend. She was a heavy smoker, but quit few years ago and socially used to drink. HOME MEDICATIONS: 1. She is on lisinopril 5 mg daily. 2. Vitamin D. 3. Levothyroxine 137 mcg. 4. Voltaren gel for the joint pain. 5. Zyrtec 10 mg daily. 6. Prednisone 5 mg twice a day. 7. Aspirin 81 mg daily. 8. Xanax 0.5 twice a day. 9. Simvastatin 20 mg daily. 10. Protonix 40 daily. 11. Metoprolol 50 mg daily. ALLERGIES: SHE IS ALLERGIC TO: 1. AMOXICILLIN. 2. CIPRO. 3. AUGMENTIN. 4. IODINE. 5. ZYVOX. 6. SULFA. PHYSICAL EXAMINATION GENERAL: The patient is awake, alert, and able to communicate. Anxious to go home. She states she feels fine. VITAL SIGNS: She is afebrile, pulse 73, respirations 18, and blood pressure 123/74. LUNGS: Bilateral good airflow; however decreased breath sounds posteriorly. HEART: S1 and S2 audible. ABDOMEN: Soft and nontender. No rebound. No guarding. NEUROLOGICAL: She is awake, alert, oriented, and communicative. LABORATORY DATA: WBC 9.9, hemoglobin 13, hematocrit 40, and platelets 261. PT 10.5 and INR 0.92. Chemistry: Sodium , potassium 4.6, chloride 102, CO2 of 32, BUN 19, creatinine 0.7, and blood sugar 123. LFTs are within normal limits. Urinalysis is unremarkable. Had CT scan of the abdomen and pelvis done that shows abdominal wall hernia containing non-strangulated bowel loop. ASSESSMENT AND PLAN: 1. Probably gastroenteritis, that is resolved. 2. Ventral hernia. 3. Chronic obstructive pulmonary disease, steroid dependent. 4. Hypertension. 5. Hyperlipidemia. PLAN: The patient will be given lunch later on. She did tolerate without any nausea or abdominal pain, so she is being discharged home today and she will resume her medications. Lori Aguila MD
== END 2018-05-02 15:14 | disposition home or self-care (01) ==
LOC: ED 19:35 → UNDOADMIN 23:50 → ERH 23:50 → ED 05-02 15:14
DX: K92.2 Gastrointestinal hemorrhage, unspecified (principal); R10.9 Unspecified abdominal pain; I25.10 Atherosclerotic heart disease of native coronary artery without angina pectoris; I10 Essential (primary) hypertension; J44.9 Chronic obstructive pulmonary disease, unspecified; E78.5 Hyperlipidemia, unspecified; K21.9 Gastro-esophageal reflux disease without esophagitis; Z90.49 Acquired absence of other specified parts of digestive tract; Z87.891 Personal history of nicotine dependence
CPT/HCPCS: 74176; 80053; 81003; 82150; 82550; 83615; 83690; 84484; 85025; 85610; 85730; 86850; 86900; 87040; 93005; 94640; 96374; 96375; 96376; 99284; C9113; J2270; J2405; J7030